=== PATIENT | female | born 1980 | race Caucasian/White ===

== ENCOUNTER 2024-01-11 09:46 | Emergency (ER) | payer OTHER, SELFPAY ==
[2024-01-11 09:50] VITALS: BP 115/79; PULSE 123; RESP 16; TEMP 36.8; O2SAT 100; BMI 31.0
[2024-01-11 09:57] VITALS: BP 116/79; PULSE 106; RESP 12; O2SAT 99
[2024-01-11 10:14] LABS: Basophils % 0.3 %; Eosinophils # 0.1 10^3/uL (0.0-0.8); Eosinophils % 0.5 %; Hematocrit 41.2 % (36-47); Lymphocytes # 1.5 10^3/uL (0.8-4.8); Lymphocytes % 14.6 %; Mean Corpuscular HGB Conc 33.5 g/dL (30-55); Mean Corpuscular Hemoglobin 28.9 pg (27-33); Mean Corpuscular Volume 86.4 fl (85-98); Mean Platelet Volume 12.7 fL (7.4-10.4); Monocytes # 0.6 10^3/uL (0.2-0.9); Monocytes % 6.2 %; Neutrophils # 7.84 10^3/uL (1.8-7.7); Neutrophils % 78.2 %; Nucleated Red Blood Cells % 0 %; Platelet Count 249 10^3/cmm (157-399); Red Blood Count 4.77 10^6/uL (3.85-5.65); Red Cell Distribution Width 12.8 % (12.1-15.1); White Blood Count 10.02 10^3/uL (3.29-11.43)
--- NOTE | 2024-01-11 10:35 | ECG_ITS ---
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 Measurements Intervals [place] Rate: 101 P: 9 [place]: 157 QRS: 29 QRSD: 72 T: 62 QT: 328 QTc: 427 Interpretive Statements SINUS TACHYCARDIA ABNORMAL RHYTHM ECG No previous ECG available for comparison Electronically Signed On 01-11-2024 20:01:44 CDT by Lakesha Leach M.D. [id number]
[2024-01-11 10:36] LABS: Alanine Aminotransferase 11 U/L (0-33); Albumin Level 4.5 g/dL (3.5-5.2); Alkaline Phosphatase 105 U/L (35-105); Aspartate Amino Transferase 14 U/L (0-32); Blood Urea Nitrogen 10 mg/dL (6-20); Calcium 9.8 mg/dL (8.5-10.5); Carbon Dioxide 23 mmol/L (22-29); Chloride 100 mmol/L (98-107); Creatinine Clr Calc Pharmacy 99.0184; Globulin 3.6 g/dL (1.3-4.6); Glomerular Filtration Rate 68.3 mL/min (90-130); Glucose 143 mg/dL (65-115); Lipase 14 U/L (13-60); Osmolality Calculated 292 mOsm/kg (285-295); Sodium 140 mmol/L (136-145); Total Bilirubin 1.4 mg/dL (0.15-1.2); Total Protein 8.1 g/dL (6.6-8.7)
[2024-01-11] MEDS: sodium chloride 0.9% 1,000 ML 999 ML IV (10:37)
[2024-01-11] MEDS: ondansetron 2 mg/ML SDV 2 mL 4 MG IVP (10:37)
[2024-01-11 11:00] LABS: Add Urine Microscopic? YES; Bilirubin Urine 1+ (Negative); Blood Urine 3+ (Negative); Glucose Urine UA Norm (Normal); Ketones Urine 3+ (Negative); Leukocyte Esterase Urine Negative (Negative); Nitrate Urine Negative (Negative); Protein Urine 2+ (Negative); Urine Appearance Clear (CLEAR); Urine Color Amber (Yellow); Urobilinogen Urine 4 mg/dL (Negative); pH Urine 6 (5-7)
--- NOTE | 2024-01-11 11:01 | PC.PHAR ---
PTS MED LIST IS VIA HER PHONE LIST. PHONED [facility] IN [facility] FOR MED LIST TO COMPARE.
[2024-01-11 11:03] LABS: Add Urine Culture? No; Bacteria Urine TRACE /hpf; Mucus Urine 2+ /hpf; RBC Urine 0-4 /hpf (0-2); Squamous Epithelial Cell Urine 0-4 /hpf (0-5); WBC Urine 0-4 /hpf (0-5)
--- NOTE | 2024-01-11 11:43 | CT_ITS ---
WS: [id number] CT ABDOMEN AND PELVIS NONCONTRAST HISTORY: Abdominal pain TECHNIQUE: Imaging performed through the abdomen and pelvis. Coronal and sagittal reformats are submi tted. All CT scans at [facility] use at least one of these dose optimization techniques: auto mated exposure control; mA and/or kV adjustment per patient size (includes targeted exams where dose is matched to clinical indication); or iterative reconstruction. DLP: 890.44 mGy.cm COMPARISON: None available. Lower thorax: Lung bases are clear. Visualized heart is normal. No hiatal hernia. Liver: Normal size liver. No mass or bile duct dilatation. Gallbladder: Prior cholecystectomy. Pancreas: Normal size and attenuation. Normal pancreatic duct. No pancreatitis or mass. Spleen: Normal. Adrenal glands: Normal. No mass. Right kidney: Mild perinephric stranding. No obstruction. Left kidney: Mild perinephric stranding. No obstruction. Aorta: Mild atherosclerosis abdominal aorta with no aneurysm. No free fluid, intraperitoneal air or significant lymphadenopathy. GI tract: Normal stomach. No small bowel obstruction. Normal appendix. Mild distal colonic diverticul a. No acute diverticulitis. Abdominal wall: Negative. No hernia. Pelvis: Uterus is midline. Both ovaries are identified. No free fluid and no adenopathy. Negative uri nary bladder. Osseous structures: No destructive bone lesions. L4-5 osteophytic ridging and disc bulging encroachin g upon the ventral thecal sac and the RIGHT S1 nerve root. Bilateral foraminal stenosis. CT/CT abdomen pelvis wo con [id number] IMPRESSION: 1. No acute abdominal or pelvic abnormalities. 2. Mild perinephric stranding around each kidney may be chronic. No renal obst ruction. 3. Normal appendix. 4. No GI tract obstruction. 5. Mild distal colonic diverticulosis without acute diverticulitis. 6. No ascites or adenopathy. 7. Prior cholecystectomy.
--- NOTE | 2024-01-11 12:18 | ED_ITS ---
HPI - Abdominal Pain 2 General: Chief Complaint: Nausea/Vomiting/Diarrhea Stated Complaint: n/v Time Seen by Provider: 01/11/24 09:52 Source: patient Mode of arrival: ambulatory History of Present Illness: 43 yo female present to the ER with comp laints of several days of epigastric RUQ abd pain with persistent N/V. Pt denies hematemesis, coffee ground emesis, hematochezia or melena Pt has previously had a cholecystectomy. No fever sweats chills. She has not noted anything that exacerbates or relieves symptoms. MD elicited complaint: abdominal pain Associated Symptoms: Reports nausea and vomiting; Denies chills, dysuria and fever(s) Review of Systems 2 Const: Denies: fever(s) or chills Card: Denies: chest pain Resp: Denies: dyspnea GI: Reports: abdominal pain, nausea and vomiting : Denies: dysuria, urinary frequency or urinary urgency Musc: Denies: neck pain or back pain Skin/Breast: Denies: rash Physical Exam 2 Const: COMMON NORMALS: no acute distress GENERAL APPEARANCE: cooperative and comfortable ORIENTATION/CONSCIOUSNESS: Yes awake, Yes oriented to person, Yes oriented to place and Yes oriented to time HENMT: COMMON NORMALS: normocephalic, atraumatic and hearing grossly normal bilaterally HEAD & SCALP: normocephalic and atraumatic Resp: COMMON NORMALS: normal respiratory effort, No retractions, No use of accessory muscles and clear to auscultation bilaterally AUSCULTATION: clear to auscultation bilaterally Cardio: COMMON NORMALS: regular rate, regular rhythm and No murmurs present (Cardio) RATE: regular rate RHYTHM: regular rhythm GI: COMMON NORMALS: Soft to palpation and No hepatosplenomegaly present A USCULTATION: Yes normoactive bowel sounds PALPATION: Yes Soft to palpation, No Tenderness to palpation present (GI), No Guarding due to palpation present (GI) and Yes No hepatosplenomegaly present Extremity: COMMON NORMALS: normal to inspection, capillary refill normal, no clubbing, cyanosis or edema, no calf tenderness and no pedal edema Neuro: SENSORIUM/ORIENTATION: Yes oriented to person, Yes oriented to place and Yes oriented to time Skin: COMMON NORMALS: no rashes or lesions noted GENERAL SKIN EXAM: no rashes or lesions noted Course 2 Vital Signs: Vital signs: Vital Signs Temperature 98.2 F 01/11/24 09:50 Pulse Rate 100 01/11/24 12:49 Respiratory Rate 12 01/11/24 09:57 Blood Pressure 115/79 01/11/24 12:49 Pulse Oximetry 100 01/11/24 12:49 Oxygen Delivery Me thod Room Air 01/11/24 12:49 MDM - Abdominal Pain Medical Decision Making Patient has not been using her blood sugar medications anion gap is very small blood sugar well-controlled electrolytes normal CO2 normal I do not think there is any evidence of DKA at this point. I think her nausea and vomiting are due to her diabetic gastroparesis. Will try to get her set up with a primary care doctor through case management refilled her Reglan to use as needed clear liquid diet and advance as tolerated monitor blood sugars closely Medical Records I reviewed the patient's medical records. Lab Data I reviewed the patient's lab results. 01/11/24 10:08 01/11/24 10:08 Labs/Radiology: Radiology Impressions Abdomen/Pelvis CT 01/11/24 11:43 IMPRESSION: 1. No acute abdominal or pelvic abnormalities. 2. Mild perinephric stranding around each kidney may be chronic. No renal obstruction. 3. Normal appendix. 4. No GI tract obstruction. 5. Mild distal colonic diverticulosis without acute diverticulitis. 6. No ascites or adenopathy. 7. Prior cholecystectomy. Laboratory Results WBC 10.02 10^3/uL (3.29-11.43) 01/11/24 10:08 RBC 4.77 10^6/uL (3.85-5.65) 01/11/24 10:08 Hgb 13.80 g/dL (11.27-16.99) 01/11/24 10:08 Hct 41.2 % (36-47) 01/11/24 10:08 MCV 86.4 fl (85-98) 01/11/24 10:08 MCH 28.9 pg (27-33) 01/11/24 10:08 MCHC 33.5 g/dL (30-55) 01/11/24 10:08 RDW 12.8 % (12.1-15.1) 01/11/24 10:08 Plt Count 249 10^3/cmm (157-399) 01/11/24 10:08 MPV 12.7 fL (7.4-10.4) H 01/11/24 10:08 Neut % (Auto) 78.2 % 01/11/24 10:08 Lymph % (Auto) 14.6 % 01/11/24 10:08 [place] % (Auto) 6.2 % 01/11/24 10:08 Eos % (Auto) 0.5 % 01/11/24 10:08 Baso % (Auto) 0.3 % 01/11/24 10:08 Neut # (Auto) 7.84 10^3/uL (1.8-7.7) H 01/11/24 10:08 Lymph # (Auto) 1.5 10^3/uL (0.8-4.8) 01/11/24 10:08 [place] # (Auto) 0.6 10^3/uL (0.2-0.9) 01/11/24 10:08 Eos # (Auto) 0.1 10^3/uL (0.0-0.8) 01/11/24 10:08 Baso # (Auto) 0.0 10^3/uL (0.0-0.1) 01/11/24 10:08 Nucleated RBC % (auto) 0 % 01/11/24 10:08 Nucleated RBCs # 0.0 /100WBC 01/11/24 10:08 Sodium 140 mmol/L (136-145) 01/11/24 10:08 Potassium 4.0 mmol/L (3.5-5.1) 01/11/24 10:08 Chloride 100 mmol/L (98-107) 01/11/24 10:08 Carbon Dioxide 23 mmol/L (22-29) 01/11/24 10:08 Anion Gap 21.0 (5-19) H 01/11/24 10:08 BUN 10 mg/dL (6-20) 01/11/24 10:08 Creatinine 0.9 mg/dL (0.5-0.9) 01/11/24 10:08 GFR Calculation 68.3 mL/min (90-130) L 01/11/24 10:08 Glucose 143 mg/dL (65-115) H 01/11/24 10:08 POC Glucose 114 mg/dL (70-110) H 01/11/24 13:36 Calculated Osmolality 292 mOsm/kg (285-295) 01/11/24 10:08 Calcium 9.8 mg/dL (8.5-10.5) 01/11/24 10:08 Total Bilirubin 1.4 mg/dL (0.15-1.2) H 01/11/24 10:08 AST 14 U/L (0-32) 01/11/24 10:08 ALT 11 U/L (0-33) 01/11/24 10:08 Alkaline Phosphatase 105 U/L (35-105) 01/11/24 10:08 Total Protein 8.1 g/dL (6.6-8.7) 01/11/24 10:08 Albumin 4.5 g/dL (3.5-5.2) 01/11/24 10:08 Globulin 3.6 g/dL (1.3-4.6) 01/11/24 10:08 Lipase 14 U/L (13-60) 01/11/24 10:08 HCG, Qual Negative (Negative) 01/11/24 10:08 Urine Color [place] (Yellow) 01/11/24 10:08 Urine Appearance Clear (CLEAR) 01/11/24 10:08 Urine pH 6 (5-7) 01/11/24 10:08 Ur Specific [place] 1.030 (1.005-1.030) 01/11/24 10:08 Urine Protein 2+ (Negative) H 01/11/24 10:08 Urine Glucose (UA) Norm (Normal) 01/11/24 10:08 Urine Ketones 3+ (Negative) H 01/11/24 10:08 Urine Blood 3+ (Negative) H 01/11/24 10:08 Urine Nitrate Negative (Negative) 01/11/24 10:08 Urine Bilirubin 1+ (Negative) H 01/11/24 10:08 Urine Urobilinogen 4 mg/dL (Negative) H 01/11/24 10:08 Ur Leukocyte Esterase Negative (Negative) 01/11/24 10:08 Urine RBC 0-4 /hpf (0-2) H 01/11/24 10:08 Urine WBC 0-4 /hpf (0-5) H 01/11/24 10:08 Ur Squamous Epith Cells 0-4 /hpf (0-5) H 01/11/24 10:08 Amorphous Sediment Not Reportable 01/11/24 10:08 Urine Bacteria Trace /hpf (NONE) 01/11/24 10:08 Hyaline Casts 5-10 /lpf H 01/11/24 10:08 Urine Mucus 2+ /hpf 01/11/24 10:08 All radiology interpretation(s) finalized by discharge Discharge Plan Discharge Patient Disposition: Home Clinical Impression: Nausea and vomiting, Hx of diabetes mellitus, Diabetic gastroparesis Condition: Stable Prescriptions: New Reglan 10 mg tablet 10 mg PO Q6H PRN (Reason: nausea and vomiting) Qty: 20 0RF No Action losartan 50 mg Tablet 50 mg PO DAILY gabapentin 600 mg Tablet 600 mg PO TID famotidine 40 mg Tablet 40 mg PO BID rizatriptan 10 mg Tablet 10 mg PO Q2H PRN (Reason: Headache) Rx Instructions: do not exceed 3 doses per 24 hrs Aspir-81 81 mg Tablet,Delayed Release (Dr/Ec) 81 mg PO DAILY dicyclomine 20 mg Tablet 20 mg PO TID PRN (Reason: Spasms) pantoprazole 40 mg Tablet,Delayed Release (Dr/Ec) 40 mg PO BID hydroxyzine HCl 25 mg Tablet 25 mg PO TID PRN (Reason: Anxiety) pravastatin 20 mg Tablet 20 mg PO QPM Vitamin D2 1,250 mcg (50,000 unit) Capsule 1,250 mcg PO DAILY Zofran ODT 4 mg Tablet,Disintegrating 4 mg PO Q8H PRN (Reason: Nausea) metformin 500 mg Tablet Extended Release 24 Hr 1,000 mg PO BID lamotrigine 100 mg Tablet 200 mg PO BID metoclopramide HCl 10 mg Tablet 10 mg PO QID Humalog KwikPen Insulin 100 unit/mL Insulin Pen See Rx Instructions .ROUTE .COMPLEX Rx Instructions: TAKE 50 UNITS IN THE MORNING, 28 UNITS IN AFTERNOON, 36 UNITS AT DINNER, 5 UNITS FOR EACH SNACK PLUS SLIDING SCALE. lactulose 10 gram/15 mL Solution 15 ml PO DAILY Lantus Solostar U-100 Insulin 100 unit/mL (3 mL) Insulin Pen See Rx Instructions .ROUTE .COMPLEX Rx Instructions: TAKE 65 UNITS BY SUBCUTANEOUS INJECTION IN THE MORNING AND 75 UNITS AT BEDTIME Jardiance 25 mg Tablet 25 mg PO DAILY Trulicity 1.5 mg/0.5 mL Pen Injector 1.5 mg SUBCUT Q7D magnesium oxide 400 mg magnesium Tablet 400 mg PO BID Motegrity 2 mg Tablet 2 mg PO DAILY Aimovig Autoinjector 140 mg/mL Auto-Injector 140 mg SUBCUT Q30D ferrous sulfate 137 mg (45 mg iron) Tablet Extended Release 45 mg PO BID Discharge Orders: Discharge ED (Routine); Ordered 01/11/24 Ordered By: Maurisio Lott Patient Instructions: Opioid Safety, Pain Management Activity Restrictions/Additional Instructions: Thank you for choosing [facility] for your healthcare needs today. Please realize this is an emergency room and that we are providing you with a medical screening exam and this may not be complete and all inclusive of all the testing and or work up that you may need to determine your ailment or severity of your illness. It is very important that you follow up as instructed or that you return to the Emergency Department should you have concerns or if your condition changes or worsens in any way. Recommend you resume your regular medications particular your diabetic medications. He gave a prescription for more of the Reglan you can use 1 every 6 hours as needed. Case management will assist you in establishing with a primary care provider. Coding Level of Care Code ED Automatic Door Mechanic for Ade Moreno
[2024-01-11 12:20] LABS: HCG, Serum Qual Negative (Negative)
[2024-01-11 12:49] VITALS: BP 115/79; PULSE 100; O2SAT 100
[2024-01-11 13:40] LABS: Glucose Point of Care 114 mg/dL (70-110)
--- NOTE | 2024-01-23 10:14 | DCPLANNER ---
joaquin grijalva office for er f/u
== END 2024-01-11 13:48 | disposition home or self-care (01) ==
PROVIDERS: Emergency Provider Family Medicine
DX: E11.43 Type 2 diabetes mellitus with diabetic autonomic (poly)neuropathy (principal); K31.84 Gastroparesis; Z79.82 Long term (current) use of aspirin; Z79.84 Long term (current) use of oral hypoglycemic drugs; Z79.4 Long term (current) use of insulin
CPT/HCPCS: 36416; 74176; 80053; 81001; 82962; 83690; 84703; 85025; 93005; 96374; 99285; J2405; J7030

== ENCOUNTER 2024-02-28 16:03 | Outpatient (CLI) | payer OTHER, SELFPAY ==
[2024-02-28 16:28] LABS: Basophils % 0.6 %; Eosinophils # 0.1 10^3/uL (0.0-0.8); Eosinophils % 1.4 %; Hematocrit 35.4 % (36-47); Lymphocytes # 1.5 10^3/uL (0.8-4.8); Lymphocytes % 23.1 %; Mean Corpuscular HGB Conc 33.1 g/dL (30-55); Mean Corpuscular Hemoglobin 29.5 pg (27-33); Mean Corpuscular Volume 89.4 fl (85-98); Mean Platelet Volume 12.7 fL (7.4-10.4); Monocytes # 0.5 10^3/uL (0.2-0.9); Neutrophils # 4.32 10^3/uL (1.8-7.7); Neutrophils % 67.4 %; Nucleated Red Blood Cells % 0 %; Platelet Count 155 10^3/cmm (157-399); Red Blood Count 3.96 10^6/uL (3.85-5.65); Red Cell Distribution Width 13.6 % (12.1-15.1); White Blood Count 6.41 10^3/uL (3.29-11.43)
[2024-02-28 16:47] LABS: Estmated Average Glucose 157; Hemoglobin A1C 7.1 % (4.0-6.0)
[2024-02-28 17:00] LABS: Alanine Aminotransferase 9 U/L (0-33); Albumin Level 4.1 g/dL (3.5-5.2); Alkaline Phosphatase 77 U/L (35-105); Anion Gap 12.6 (5-19); Aspartate Amino Transferase 11 U/L (0-32); Blood Urea Nitrogen 7 mg/dL (6-20); Calcium 8.8 mg/dL (8.5-10.5); Carbon Dioxide 26 mmol/L (22-29); Chloride 105 mmol/L (98-107); Chol HDL Ratio 2.74 mg/dL (0.0-4.40); Cholesterol 137 mg/dL (0-200); Globulin 2.8 g/dL (1.3-4.6); Glomerular Filtration Rate 109.1 mL/min (90-130); Glucose 223 mg/dL (65-115); HDL Cholesterol 50 mg/dL (60-100); LDL Cholesterol Calculated 74 mg/dL (50-129); LDL HDL Ratio 1.48 RATIO (0.00-3.22); Osmolality Calculated 293 mOsm/kg (285-295); Potassium 4.6 mmol/L (3.5-5.1); Sodium 139 mmol/L (136-145); Thyroid Stimulating Hormone 1.55 uIU/mL (0.27-4.20); Total Bilirubin 0.4 mg/dL (0.15-1.2); Total Protein 6.9 g/dL (6.6-8.7); Triglycerides 67 mg/dL (0-150)
== END 2024-02-28 16:04 | disposition home or self-care (01) ==
LOC: LAB 16:05
PROVIDERS: PCP Family Medicine Adult Medicine; Visit Provider Family Medicine Adult Medicine
DX: I10 Essential (primary) hypertension (principal); E11.69 Type 2 diabetes mellitus with other specified complication; E78.5 Hyperlipidemia, unspecified; E11.9 Type 2 diabetes mellitus without complications
CPT/HCPCS: 36415; 80053; 80061; 83036; 84443; 85025

== ENCOUNTER 2024-04-29 00:03 | Emergency (ER) | payer OTHER, SELFPAY ==
[2024-04-29 00:08] VITALS: BP 120/81; PULSE 127; RESP 20; TEMP 37.4; O2SAT 97; BMI 30.2
--- NOTE | 2024-04-29 00:56 | XRR_ITS ---
PROCEDURE INFORMATION: Exam: XR Chest Exam date and time: 04/29/2024 12:57 AM Age: 43 years old Clinical indication: Cough and shortness of breath; Patient HX: Cough with SOB; Additional info: Cough cp SOB TECHNIQUE: Imaging protocol: Radiologic exam of the chest. Views: 1 view. COMPARISON: CT abdomen pelvis wo con [id number] 01/11/2024 12:34 PM FINDINGS: Lungs: Unremarkable. No consolidation. Pleural spaces: Unremarkable. No pleural effusion. No pneumothorax. Heart/Mediastinum: Unremarkable. No cardiomegaly. Bones/joints: Unremarkable. XR/XR chest 1V portable [id number] IMPRESSION: No acute findings.
--- NOTE | 2024-04-29 00:56 | ECG_ITS ---
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 Measurements Intervals [place] Rate: 102 P: 28 [place]: 157 QRS: 27 QRSD: 81 T: 50 QT: 314 QTc: 410 Interpretive Statements SINUS TACHYCARDIA ABNORMAL RHYTHM ECG Compared to ECG 01/11/2024 10:35:20 No significant changes Electronically Signed On 04-29-2024 20:33:18 CDT by Lakesha Leach M.D. [id number]
[2024-04-29 01:21] LABS: SARS Covid-2 Antigen Negative (Negative)
[2024-04-29 01:40] VITALS: RESP 16; O2SAT 96
[2024-04-29] MEDS: oxyCODONE-APAP 5-325 mg Tablet 2 TAB PO (01:40)
[2024-04-29] MEDS: metoclopramide 10 mg Tablet PO (01:41)
[2024-04-29] MEDS: ketorolac 60 mg/2 mL INJ IM (01:41)
[2024-04-29 01:42] LABS: Influenza A by IFA Negative (Negative); Influenza B by IFA Negative (Negative)
[2024-04-29 01:44] VITALS: BP 129/72; PULSE 105; RESP 18; O2SAT 96
--- NOTE | 2024-04-29 01:48 | ED_ITS ---
HPI - URI/Sore Throat General: Chief Complaint: Upper Respiratory Infection Stated Complaint: fever/bodyache Time Seen by Provider: 04/29/24 00:13 History of Present Illness: 43-year-old female who has been sick for 48 hours. She complains of fever as high as 101.8. She has had some pleuritic type chest pain, mostly with cough. No sputum production. Some sinus drainage and congestion and headache. No vomiting or diarrhea. Her is sick with the same symptoms. He has been sick for more like 5 days. Related Data Home Medications Medication Instructions Recorded Confirmed aspirin 81 mg tablet,delayed 81 mg PO DAILY 01/11/24 04/10/24 release dicyclomine 20 mg tablet 20 mg PO TID PRN Spasms 01/11/24 04/10/24 dulaglutide 1.5 mg/0.5 mL 1.5 mg SUBCUT Q7D 01/11/24 04/10/24 subcutaneous pen injector (Trulicity) empagliflozin 25 mg tablet 25 mg PO DAILY 01/11/24 04/10/24 (Jardiance) erenumab-aooe 140 mg/mL 140 mg SUBCUT Q30D 01/11/24 04/10/24 subcutaneous auto-injector (Aim[employer]ig Autoinjector) ergocalciferol (vitamin D2) 1,250 1,250 mcg PO DAILY 01/11/24 04/10/24 mcg (50,000 unit) capsule (Vitamin D2) famotidine 40 mg tablet 40 mg PO BID 01/11/24 04/10/24 ferrous sulfate 137 mg (45 mg 45 mg PO BID 01/11/24 04/10/24 iron) tablet,extended release hydroxyzine HCl 25 mg tablet 25 mg PO TID PRN Anxiety 01/11/24 04/10/24 insulin glargine 100 unit/mL (3 See Rx Instructions .Route .COMPLEX 01/11/24 04/10/24 mL) subcutaneous pen (Lantus Solostar U-100 Insulin) insulin lispro 100 unit/mL See Rx Instructions .Route .COMPLEX 01/11/24 04/10/24 subcutaneous pen (Humalog KwikPen (U-100) Insulin) lactulose 10 gram/15 mL oral 15 ml PO DAILY 01/11/24 04/10/24 solution lamotrigine 100 mg tablet 200 mg PO BID 01/11/24 04/10/24 losartan 50 mg tablet 50 mg PO DAILY 01/11/24 04/10/24 magnesium oxide 400 mg PO BID 01/11/24 04/10/24 metformin 500 mg tablet,extended 1,000 mg PO BID 01/11/24 04/10/24 release 24 hr metoclopramide HCl 10 mg tablet 10 mg PO QID 01/11/24 04/10/24 ondansetron 4 mg disintegrating 4 mg PO Q8H PRN Nausea 01/11/24 04/10/24 tablet pravastatin 20 mg tablet 20 mg PO QPM 01/11/24 04/10/24 prucalopride 2 mg tablet 2 mg PO DAILY 01/11/24 04/10/24 (Motegrity) rizatriptan 10 mg tablet 10 mg PO Q2H PRN Headache 01/11/24 04/10/24 Previous Rx's Medication Instructions Recorded escitalopram oxalate 10 mg tablet 10 mg PO DAILY anxiety #30 tabs 02/07/24 (Lexapro) pantoprazole 40 mg tablet,delayed 40 mg PO BID PRN acid reflux #60 04/10/24 release tabs pregabalin 50 mg capsule 50 mg PO TID neuropathy/migraines 04/10/24 #90 caps hydrocodone 5 mg-acetaminophen 325 1 tab PO Q8H PRN pain #7 tabs 04/29/24 mg tablet nirmatrelvir 300 mg (150 mg See Rx Instructions PO .COMPLEX 04/29/24 x2)-ritonavir 100 mg tablet,dose #30 ea pack (Paxlovid) Allergies Allergy/AdvReac Type Severity Reaction Status Date / Time lisinopril Allergy ADR-Cough Verified 04/29/24 00:11 [facility] ED PFS: Medical History History of abnormal mammogram 02/07/2024 patient reported abnormal mammogram, time for 6-month follow-up Chronic GERD Diabetic retinopathy associated with controlled type 2 diabetes mellitus Anxiety and depression Dyslipidemia associated with type 2 diabetes mellitus Migraines DM II (diabetes mellitus, type II), controlled Gastroparesis Degenerative disc disease History of PCOS HTN (hypertension) with goal to be determined Diabetic neuropathy IBS (irritable bowel syndrome) Broken nose Fatty liver Surgical History History of cholecystectomy Family History Father Diabetes Mother Diabetes Fatty liver Social History Smoking and tobacco/nicotine status: former use of tobacco/nicotine Quit status (tobacco/nicotine): has quit using Alcohol intake: former Substance/Drug Use: never Physical Exam Const: COMMON NORMALS: no acute distress GENERAL APPEARANCE: cooperative; not ill appearing and not frail appearing HENMT: COMMON NORMALS: normocephalic, atraumatic and Normal external nose present HEAD & SCALP: normocephalic and atraumatic FACE & SINUS: normal facial exam and face symmetric NOSE: Normal external nose present Eye: COMMON NORMALS: Equal, round and reactive pupils present and EOMs intact bilaterally PUPIL: Yes Equal, round and reactive pupils present Neck/C-Spine: GENERAL: Yes trachea midline Chest: CHEST: Yes Symmetrical chest wall rise Resp: COMMON NORMALS: normal respiratory effort, No retractions, No use of accessory muscles and clear to auscultation bilaterally AUSCULTATION: clear to auscultation bilaterally Cardio: COMMON NORMALS: regular rate and regular rhythm RATE: regular rate RHYTHM: regular rhythm GI: COMMON NORMALS: Normal to inspection, nondistended, normoactive bowel sounds present Extremity: COMMON NORMALS: no pedal edema Neuro: GABRIELA COMA SCALE: document GCS findings Gabriela coma scale eye opening: Spontaneous Gabriela coma scale verbal response: Orientated [place] coma scale motor response: Obey commands Gabriela coma scale total score: 15 SENSORY EXAM: Yes extremities (intact) Psych: COMMON NORMALS: speech normal SPEECH: Yes normal speech Skin: COMMON NORMALS: no rashes or lesions noted GENERAL SKIN EXAM: no rashes or lesions noted Course Vital Signs: Vital signs: Vital Signs Temperature 99.4 F 04/29/24 00:08 Pulse Rate 114 H 04/29/24 02:09 Respiratory Rate 16 04/29/24 02:09 Blood Pressure 129/72 04/29/24 01:44 Pulse Oximetry 96 04/29/24 02:09 Oxygen Delivery Me thod Room Air 04/29/24 01:44 MDM - URI/Sore Throat Medical Decision Making tested positive for COVID-19 in the ER. She is antigen testing negative so far. Based on symptoms and exposure, she does have COVID. Chest x-ray is negative. Flu A and B are negative as well. EKG is not remarkable. As she is only 48 hours into her illness, she will be prescribed Paxlovid. Lab Data Radiology Impressions Chest X-Ray 04/29/24 00:56 IMPRESSION: No acute findings. Laboratory Results Influenza Type A Ag Negative (Negative) 04/29/24 01:10 Influenza Type B Ag Negative (Negative) 04/29/24 01:10 SARS-CoV-2 Ag (Rapid) Negative (Negative) 04/29/24 00:57 All radiology interpretation(s) finalized by discharge Discharge Plan Discharge Patient Disposition: Home Clinical Impression: COVID-19 Condition: Stable Prescriptions: New Paxlovid 300 mg (150 mg x 2)-100 mg tablets,dose pack See Rx Instructions .ROUTE .COMPLEX Qty: 30 0RF Rx Instructions: take TWO 150 mg tablets of nirmatrelvir with ONE 100 mg tablet of ritonavir twice daily for 5 days hydrocodone-acetaminophen 5-325 mg tablet 1 tab PO Q8H PRN (Reason: pain) Qty: 7 0RF No Action escitalopram oxalate [Lexapro] 10 mg tablet 10 mg PO DAILY Qty: 30 1RF pregabalin 50 mg capsule 50 mg PO TID Qty: 90 3RF pantoprazole 40 mg tablet,delayed release (DR/EC) 40 mg PO BID PRN (Reason: acid reflux) Qty: 60 3RF losartan 50 mg Tablet 50 mg PO DAILY famotidine 40 mg Tablet 40 mg PO BID rizatriptan 10 mg Tablet 10 mg PO Q2H PRN (Reason: Headache) Rx Instructions: do not exceed 3 doses per 24 hrs Aspir-81 81 mg Tablet,Delayed Release (Dr/Ec) 81 mg PO DAILY dicyclomine 20 mg Tablet 20 mg PO TID PRN (Reason: Spasms) hydroxyzine HCl 25 mg Tablet 25 mg PO TID PRN (Reason: Anxiety) pravastatin 20 mg Tablet 20 mg PO QPM Vitamin D2 1,250 mcg (50,000 unit) Capsule 1,250 mcg PO DAILY Zofran ODT 4 mg Tablet,Disintegrating 4 mg PO Q8H PRN (Reason: Nausea) metformin 500 mg Tablet Extended Release 24 Hr 1,000 mg PO BID lamotrigine 100 mg Tablet 200 mg PO BID metoclopramide HCl 10 mg Tablet 10 mg PO QID Humalog KwikPen Insulin 100 unit/mL Insulin Pen See Rx Instructions .ROUTE .COMPLEX Rx Instructions: TAKE 50 UNITS IN THE MORNING, 28 UNITS IN AFTERNOON, 36 UNITS AT DINNER, 5 UNITS FOR EACH SNACK PLUS SLIDING SCALE. lactulose 10 gram/15 mL Solution 15 ml PO DAILY Lantus Solostar U-100 Insulin 100 unit/mL (3 mL) Insulin Pen See Rx Instructions .ROUTE .COMPLEX Rx Instructions: TAKE 65 UNITS BY SUBCUTANEOUS INJECTION IN THE MORNING AND 75 UNITS AT BEDTIME Jardiance 25 mg Tablet 25 mg PO DAILY Trulicity 1.5 mg/0.5 mL Pen Injector 1.5 mg SUBCUT Q7D magnesium oxide 400 mg magnesium Tablet 400 mg PO BID Motegrity 2 mg Tablet 2 mg PO DAILY Aimovig Autoinjector 140 mg/mL Auto-Injector 140 mg SUBCUT Q30D ferrous sulfate 137 mg (45 mg iron) Tablet Extended Release 45 mg PO BID Discharge Orders: Discharge ED (Routine); Ordered 04/29/24 Ordered By: Peter Blevins Referrals: Fredi Mitchell MD [Primary Care Provider] - 4-7 days Patient Instructions: COVID-19 (Coronavirus Disease 2019) (ED), Opioid Safety, Pain Management Activity Restrictions/Additional Instructions: Plenty of clear liquids for the next 48 hours. Medication as directed. Control temperature. Return for worsening symptoms, especially shortness of breath, despite treatment. Stand Alone Forms: Work/School Release Coding Level of Care Code ED Crime Scene Specialist for Ade Moreno
[2024-04-29 02:09] VITALS: PULSE 114; RESP 16; O2SAT 96
== END 2024-04-29 02:10 | disposition home or self-care (01) ==
PROVIDERS: Emergency Provider Emergency Medicine; PCP Family Medicine Adult Medicine
DX: U07.1 COVID-19 (principal); Z79.82 Long term (current) use of aspirin; Z79.84 Long term (current) use of oral hypoglycemic drugs; Z79.4 Long term (current) use of insulin; Z79.85 Long-term (current) use of injectable non-insulin antidiabetic drugs; Z87.891 Personal history of nicotine dependence; E78.5 Hyperlipidemia, unspecified; I10 Essential (primary) hypertension; E11.40 Type 2 diabetes mellitus with diabetic neuropathy, unspecified
CPT/HCPCS: 71045; 87426; 87804; 93005; 96372; 99285; J1885; J8597

== ENCOUNTER 2024-07-16 14:49 | Outpatient (CLI) | payer OTHER, SELFPAY ==
--- NOTE | 2024-07-16 | MM_ITS ---
WS: [id number] BILATERAL 3D TOMOSYNTHESIS DIGITAL DIAGNOSTIC MAMMOGRAPHY WITH CAD CLINICAL INFORMATION: 6 MONTH FU ABNORMAL MAMMOGRAM HISTORY: 6-month follow-up COMPARISON: 09/23/2022 from outside facility. Additional ultrasound 11/11/2022 and mammogram 11/11/2022 an d 09/23/2022 TECHNIQUE: Bilateral CC, MLO, and ML views. FINDINGS: Scattered fibroglandular densities bilaterally. Persistent asymmetric density upper outer LEFT breast . This is persistent on the spot compression views today with slightly irregular margins. This is ind eterminant and recommend further evaluation with LEFT breast ultrasound. Asymmetry measures approxima tely 9 mm. This is in the outer quadrant LEFT breast at or just below the level of the nipple on the straight lateral view RIGHT breast is unremarkable and unchanged. MM/MM diag BI tomosynthesis [id number] IMPRESSION: DENSITY: There are scattered areas of fibroglandular density. BI-RADS: 0 - Incomplete: Need additional imaging evaluation. FOLLOW UP: Need Additional Imaging Recommend ultrasound LEFT breast in further evaluation.
== END 2024-07-16 14:50 | disposition home or self-care (01) ==
LOC: RAD 14:49
PROVIDERS: PCP Family Medicine Adult Medicine; Visit Provider Family Medicine Adult Medicine
DX: R92.8 Other abnormal and inconclusive findings on diagnostic imaging of breast (principal); R92.323 Mammographic fibroglandular density, bilateral breasts; N64.89 Other specified disorders of breast; N63.21 Unspecified lump in the left breast, upper outer quadrant
CPT/HCPCS: 77062; G0279

== ENCOUNTER 2024-09-12 09:39 | Outpatient (CLI) | payer OTHER, SELFPAY ==
--- NOTE | 2024-09-12 09:46 | XR_ITS ---
WS: [id number] Left foot, 3 views, 09/12/2024 Clinical Data: E11.621 - Type 2 diabetes mellitus with foot ulcer Comparison: None. Findings: No fractures or dislocations are seen. No bone destruction or erosion is noted. The joint spaces and soft tissues are normal. XR/XR foot LT min 3V* [id number] Impression: Negative left foot.
== END 2024-09-12 09:40 | disposition home or self-care (01) ==
LOC: RAD 09:42
PROVIDERS: PCP Family Medicine; Visit Provider Thoracic Surgery (Cardiothoracic Vascular Surgery)
DX: E11.621 Type 2 diabetes mellitus with foot ulcer (principal); L97.509 Non-pressure chronic ulcer of other part of unspecified foot with unspecified severity
CPT/HCPCS: 73630

== ENCOUNTER 2024-09-19 09:54 | Inpatient (IN) | payer OTHER, SELFPAY ==
[2024-09-19] VITALS (65 sets, daily range): BP systolic 102–157; BP diastolic 67–115; PULSE 84–141; RESP 12–26; TEMP 37.6–37.8; O2SAT 95–100; BMI 29.5
--- NOTE | 2024-09-19 10:17 | ED_ITS ---
HPI - General Adult 2 General: Chief complaint: General Medical Stated complaint: blood sugar high Time Seen by Provider: 09/19/24 10:11 History of Present Illness: 43-year-old female presents emergency ro om complaining of redness swelling in her foot. She has had a diabetic ulcer on the plantar aspect of the left foot with a large tissue defect she has been following with wound care. Over the last 3 days it has began to have redness increased swelling and tenderness. Her blood sugars have been poorly controlled she has had some nausea and vomiting with it as well. Subjective low-grade fever. Associated symptoms: Deny chest pain, dyspnea or rash Related Data Home Medications Medication Instructions Recorded Confirmed aspirin 81 mg tablet,delayed 81 mg PO DAILY 01/11/24 09/19/24 release dicyclomine 20 mg tablet 20 mg PO TID PRN Spasms 01/11/24 09/19/24 dulaglutide 1.5 mg/0.5 mL 1.5 mg SUBCUT Q7D 01/11/24 09/19/24 subcutaneous pen injector (Trulicity) empagliflozin 25 mg tablet 25 mg PO DAILY 01/11/24 09/19/24 (Jardiance) erenumab-aooe 140 mg/mL 140 mg SUBCUT Q30D 01/11/24 09/19/24 subcutaneous auto-injector (Aimovig Autoinjector) ergocalciferol (vitamin D2) 1,250 1,250 mcg PO DAILY 01/11/24 09/19/24 mcg (50,000 unit) capsule (Vitamin D2) famotidine 40 mg tablet 40 mg PO BID 01/11/24 09/19/24 ferrous sulfate 137 mg (45 mg 45 mg PO BID 01/11/24 09/19/24 iron) tablet,extended release hydroxyzine HCl 25 mg tablet 25 mg PO TID PRN Anxiety 01/11/24 09/19/24 insulin glargine 100 unit/mL (3 See Rx Instructions .Route .COMPLEX 01/11/24 09/19/24 mL) subcutaneous pen (Lantus Solostar U-100 Insulin) insulin lispro 100 unit/mL See Rx Instructions .Route .COMPLEX 01/11/24 09/19/24 subcutaneous pen (Humalog KwikPen (U-100) Insulin) lactulose 10 gram/15 mL oral 15 ml PO DAILY 01/11/24 09/19/24 solution lamotrigine 100 mg tablet 200 mg PO BID 01/11/24 09/19/24 losartan 50 mg tablet 50 mg PO DAILY 01/11/24 09/19/24 magnesium oxide 400 mg PO BID 01/11/24 09/19/24 metformin 500 mg tablet,extended 1,000 mg PO BID 01/11/24 09/19/24 release 24 hr ondansetron 4 mg disintegrating 4 mg PO Q8H PRN Nausea 01/11/24 09/19/24 tablet pravastatin 20 mg tablet 20 mg PO QPM 01/11/24 09/19/24 prucalopride 2 mg tablet 2 mg PO DAILY 01/11/24 09/19/24 (Motegrity) rizatriptan 10 mg tablet 10 mg PO Q2H PRN Headache 01/11/24 09/19/24 azithromycin 250 mg tablet See Rx Instructions .Route .COMPLEX 09/19/24 09/19/24 sulfamethoxazole 800 1 tab PO [id number] 09/19/24 09/19/24 mg-trimethoprim 160 mg tablet Previous Rx's Medication Instructions Recorded escitalopram oxalate 10 mg tablet 10 mg PO DAILY anxiety #30 tabs 02/07/24 (Lexapro) pregabalin 50 mg capsule 50 mg PO TID neuropathy/migraines 04/10/24 #90 caps hydrocodone 5 mg-acetaminophen 325 1 tab PO Q8H PRN pain #7 tabs 04/29/24 mg tablet metoclopramide HCl 10 mg tablet 10 mg PO QID #120 tabs 06/22/24 blood-glucose meter,continuous #1 ea 07/17/24 (FreeStyle Solo 3 [place]) blood-glucose sensor (FreeStyle #3 ea 07/17/24 Solo 3 Sensor device) pantoprazole 40 mg tablet,delayed 40 mg PO BID PRN acid reflux #60 08/20/24 release tabs linezolid 600 mg tablet 600 mg PO BID #14 tabs 09/19/24 metronidazole 500 mg tablet 500 mg PO Q8H #21 tabs 09/19/24 Allergies Allergy/AdvReac Type Severity Reaction Status Date / Time lisinopril Allergy ADR-Cough Verified 09/19/24 10:05 Review of Systems 2 Const: Denies: fever(s) or chills Card: Denies: chest pain Resp: Denies: dyspnea GI: Denies: abdominal pain : Denies: dysuria, urinary frequency or urinary urgency Musc: Reports: extremity pain and extremity swelling; Denies: neck pain or back pain Skin/Breast: Denies: rash PFSH ED 2 PFSH: Medical History History of abnormal mammogram 02/07/2024 patient reported abnormal mammogram, time for 6-month follow-up Chronic GERD Diabetic retinopathy associated with controlled type 2 diabetes mellitus Anxiety and depression Dyslipidemia associated with type 2 diabetes mellitus Migraines DM II (diabetes mellitus, type II), controlled Gastroparesis Degenerative disc disease History of PCOS HTN (hypertension) with goal to be determined Diabetic neuropathy IBS (irritable bowel syndrome) Broken nose Fatty liver Surgical History History of cholecystectomy Family History Father Diabetes Mother Diabetes Fatty liver Social History Smoking and tobacco/nicotine status: former use of tobacco/nicotine Quit status (tobacco/nicotine): has quit using Alcohol intake: former Substance/Drug Use: never Physical Exam 2 Const: GENERAL APPEARANCE: cooperative ORIENTATION/CONSCIOUSNESS: Yes awake, Yes oriented to person, Yes oriented to place and Yes oriented to time HENMT: COMMON NORMALS: normocephalic, atraumatic and hearing grossly normal bilaterally HEAD & SCALP: normocephalic and atraumatic Resp: COMMON NORMALS: normal respiratory effort, No retractions, No use of accessory muscles and clear to auscultation bilaterally AUSCULTATION: clear to auscultation bilaterally Cardio: COMMON NORMALS: regular rate, regular rhythm and No murmurs present (Cardio) RATE: regular rate RHYTHM: regular rhythm GI: COMMON NORMALS: Soft to palpation and No hepatosplenomegaly present A USCULTATION: Yes normoactive bowel sounds PALPATION: Yes Soft to palpation, No Tenderness to palpation present (GI), No Guarding due to palpation present (GI) and Yes No hepatosplenomegaly present Extremity: OTHER: Examination of the foot there is redness and erythema on the dorsum of the foot extending proximally. At the base of the foot there is some devascularized tissue circular lesion defect in the foot that has packing in place that was not removed at this time. There are some mild localized erythema adjacent to it no active drainage. Neuro: SENSORIUM/ORIENTATION: Yes oriented to person, Yes oriented to place and Yes oriented to time Skin: COMMON NORMALS: no rashes or lesions noted GENERAL SKIN EXAM: no rashes or lesions noted Course 2 Vital Signs: Vital signs: Vital Signs Temperature 100.1 F H 09/19/24 14:30 Pulse Rate 106 H 09/19/24 15:40 Respiratory Rate 18 09/19/24 15:40 Blood Pressure 116/71 09/19/24 15:40 Pulse Oximetry 97 09/19/24 15:40 Oxygen Delivery Me thod Room Air 09/19/24 14:30 MDM - General Adult Medical Decision Making Labs show DKA with possible early osteomyelitis at the foot discussed with podiatry they did not request any advanced imaging they want to reassess it themselves once her DKA is stabilized and will decide between debridement or advanced imaging. Discussed with hospitalist orders written. Initial DKA treatment started in the emergency room Medical Records I reviewed the patient's medical records. Lab Data I reviewed the patient's lab results. 09/19/24 10:51 09/19/24 10:51 Radiology Impressions Foot X-Ray 09/19/24 10:23 IMPRESSION: Soft tissue changes indicative of inflammation/necrosis. Changes in the base of the proximal phalanx of the fifth toe which could represent reactive change to adjacent inflammation however if the soft tissue infection has existed for a time, concern would be for osteomyelitis. Chest X-Ray 09/19/24 12:56 IMPRESSION: No acute findings. Laboratory Results WBC 13.48 10^3/uL (3.29-11.43) H 09/19/24 10:51 RBC 4.25 10^6/uL (3.85-5.65) 09/19/24 10:51 Hgb 11.50 g/dL (11.27-16.99) 09/19/24 10:51 Hct 36.0 % (36-47) 09/19/24 10:51 MCV 84.7 fl (85-98) L 09/19/24 10:51 MCH 27.1 pg (27-33) 09/19/24 10:51 MCHC 31.9 g/dL (30-55) 09/19/24 10:51 RDW 13.9 % (12.1-15.1) 09/19/24 10:51 Plt Count 177 10^3/cmm (157-399) 09/19/24 10:51 MPV 13.1 fL (7.4-10.4) H 09/19/24 10:51 Neut % (Auto) 88.6 % 09/19/24 10:51 Lymph % (Auto) 2.2 % 09/19/24 10:51 [place] % (Auto) 6.2 % 09/19/24 10:51 Eos % (Auto) 0.3 % 09/19/24 10:51 Baso % (Auto) 0.3 % 09/19/24 10:51 Neut # (Auto) 11.93 10^3/uL (1.8-7.7) H 09/19/24 10:51 Lymph # (Auto) 0.3 10^3/uL (0.8-4.8) L 09/19/24 10:51 [place] # (Auto) 0.8 10^3/uL (0.2-0.9) 09/19/24 10:51 Eos # (Auto) 0.0 10^3/uL (0.0-0.8) 09/19/24 10:51 Baso # (Auto) 0.0 10^3/uL (0.0-0.1) 09/19/24 10:51 Nucleated RBC % (auto) 0 % 09/19/24 10:51 Nucleated RBCs # 0.0 /100WBC 09/19/24 10:51 ESR 79 mm/hr (0-15) H 09/19/24 10:51 PT 15.00 SECONDS (12.1-14.9) H 09/19/24 10:51 INR 1.10 (0.8-1.2) 09/19/24 10:51 D-Dimer 1.39 ug/mLFEU (0-0.59) H 09/19/24 10:51 Specimen Type Arterial 09/19/24 10:28 Sample Site Radial, right 09/19/24 10:28 ABG pH 7.33 (7.35-7.45) L 09/19/24 10:28 ABG pCO2 17.5 mmHg (35-45) L* 09/19/24 10:28 ABG pO2 97.0 mmHg (80.0-100.0) 09/19/24 10: ABG PO2/FiO2 Ratio 461 09/19/24 10:28 ABG HCO3 9.1 mmol/L (22-26) L 09/19/24 10:28 ABG O2 Saturation 98.3 09/19/24 10:28 ABG Base Excess -14.7 mmol/L (-2.0-2.0) L 09/19/24 10:28 Johnny Test Pos 09/19/24 10:28 A-a O2 Gradient 4.0 mmHg (5-10) L 09/19/24 10:28 Hematocrit 35.7 % (37-47) L 09/19/24 10: Hgb O2 Saturation 98.2 % (95-100) 09/19/24 10:28 Carboxyhemoglobin 1.0 %THgb (0.4-20.1) 09/19/24 10:28 Methemoglobin < 0.0 % (0.4-1.5) L 09/19/24 10:28 Total Hemoglobin 11.6 g/dL (12-16) L 09/19/24 10:28 Sodium 132.0 mmol/L (131-143) 09/19/24 10:28 Potassium 4.3 mmol/L (3.5-5.0) 09/19/24 10:28 Glucose 410.0 mg/dL (70-115) H 09/19/24 10:28 Ionized Calcium 1.3 mmol/L (1.1-1.4) 09/19/24 10:28 O2 Delivery Device Room air 09/19/24 10:28 FiO2 21.0 % 09/19/24 10:28 Wire Brush Maker ID [place] 09/19/24 10:28 Sodium 129 mmol/L (136-145) L 09/19/24 10:51 Potassium 4.5 mmol/L (3.5-5.1) 09/19/24 10:51 Chloride 93 mmol/L (98-107) L 09/19/24 10:51 Carbon Dioxide 11 mmol/L (22-29) L 09/19/24 10:51 Anion Gap 29.5 (5-19) H 09/19/24 10:51 BUN 9 mg/dL (6-20) 09/19/24 10:51 Creatinine 0.9 mg/dL (0.5-0.9) 09/19/24 10:51 GFR Calculation 68.3 mL/min (90-130) L 09/19/24 10:51 Glucose 403 mg/dL (65-115) H 09/19/24 10:51 POC Glucose 373 mg/dL (70-110) H 09/19/24 10:05 Calculated Osmolality 284 mOsm/kg (285-295) L 09/19/24 10:51 Lactic Acid 3.1 mmol/L (0.5-2.2) H 09/19/24 10:51 Calcium 9.5 mg/dL (8.5-10.5) 09/19/24 10:51 Total Bilirubin 1.0 mg/dL (0.15-1.2) 09/19/24 10:51 AST 8 U/L (0-32) 09/19/24 10:51 ALT 6 U/L (0-33) 09/19/24 10:51 Alkaline Phosphatase 111 U/L (35-105) H 09/19/24 10:51 Troponin T Baseline < 6 ng/L (0-10) 09/19/24 10:51 C-Reactive Protein 452.8 mg/L (0.0-4.9) H 09/19/24 10:51 NT-Pro-B Natriuret Pep 85 pg/mL (0-125) 09/19/24 10:51 Total Protein 7.7 g/dL (6.6-8.7) 09/19/24 10:51 Albumin 3.8 g/dL (3.5-5.2) 09/19/24 10:51 Globulin 3.9 g/dL (1.3-4.6) 09/19/24 10:51 Procalcitonin 0.32 ng/mL (0-0.5) 09/19/24 10:51 HCG, Qual Negative (Negative) 09/19/24 10:51 Serum Ketones Positive (Negative) H 09/19/24 10:51 All radiology interpretation(s) finalized by discharge Critical Care Time 2 Critical Care Time: Critical Care Time: Yes Total Critical Care Time: 40 Attestation: The high probability of a clinically significant, sudden or life threatening deterioration of the patient's endocrine renal infectious disease system(s) required my full and direct attention, intervention and personal management. The critical care time is as shown. This time is in addition to time spent performing any reported procedures but includes the following: [x] Data and vital sign review and interpretation [x] Patient assessment, examination and intervention [x] Documentation [x] Medication orders and management Discharge Plan Discharge Patient Disposition: Admitted As Inpatient Admit Provider: Jerod Gustafson Clinical Impression: Diabetic ketoacidosis, Diabetic ulcer of left foot, Diabetic neuropathy, Sepsis Condition: Stable Coding Level of Care Code ED Grape Crusher for Ade Moreno
--- NOTE | 2024-09-19 10:23 | XR_ITS ---
WS: [id number] XR foot LT min 3V* [id number] REASON FOR EXAM: diabetic foot ulcer FINDINGS: Mottled hypointensity between the fourth and fifth MTP joints on the plantar aspect. Posterior and la teral extension of the mottling to about the mid portion of the fifth metatarsal. The medial base of the proximal phalanx demonstrates loss of cortex and trabeculae. No erosion or per iosteal reaction. The remainder the examination demonstrates mild arthropathic change in the midfoot with no focal bony abnormality. The subtalar joint is intact and the calcaneus is unremarkable. XR/XR foot LT min 3V* [id number] IMPRESSION: Soft tissue changes indicative of inflammation/necrosis. Changes in the base of the proximal phalanx of the fifth toe which could repres ent reactive change to adjacent inflammation however if the soft tissue infecti on has existed for a time, concern would be for osteomyelitis.
[2024-09-19 10:37] LABS: Glucose Point of Care 373 mg/dL (70-110)
[2024-09-19 10:39] LABS: ABG PCO2 17.5 mmHg (35-45); ABG PH Result 7.33 (7.35-7.45); Arterial Blood Gas Hematocrit 35.7 % (37-47); Base Excess ABG -14.7 mmol/L (-2.0-2.0); Blood Gas Allen Test Pos; Blood Gas Operator Identificat WALCI; Blood Gas Sample Site Radial, right; Blood Gas Sample Type Arterial; HCO3 ABG 9.1 mmol/L (22-26); HGB O2 Sat 98.2 % (95-100); Ionized Calcium Level - ABG 1.3 mmol/L (1.1-1.4); Methemoglobin < 0.0 % (0.4-1.5); Oxygen Device ROOM AIR; Oxygen Saturation ABG 98.3; PO2 FiO2 Ratio Arterial Blood 461; Potassium Level - ABG 4.3 mmol/L (3.5-5.0); Total Hemoglobin 11.6 g/dL (12-16)
[2024-09-19 11:02] LABS: Basophils % 0.3 %; Eosinophils % 0.3 %; Lymphocytes # 0.3 10^3/uL (0.8-4.8); Lymphocytes % 2.2 %; Mean Corpuscular HGB Conc 31.9 g/dL (30-55); Mean Corpuscular Hemoglobin 27.1 pg (27-33); Mean Corpuscular Volume 84.7 fl (85-98); Mean Platelet Volume 13.1 fL (7.4-10.4); Monocytes # 0.8 10^3/uL (0.2-0.9); Monocytes % 6.2 %; Neutrophils # 11.93 10^3/uL (1.8-7.7); Neutrophils % 88.6 %; Nucleated Red Blood Cells % 0 %; Platelet Count 177 10^3/cmm (157-399); Red Blood Count 4.25 10^6/uL (3.85-5.65); Red Cell Distribution Width 13.9 % (12.1-15.1); White Blood Count 13.48 10^3/uL (3.29-11.43)
[2024-09-19 11:16] LABS: Ketone (Acetest) Serum Positive (Negative)
[2024-09-19 11:17] LABS: Slide Review Slide Review Perform
[2024-09-19 11:23] LABS: Alanine Aminotransferase 6 U/L (0-33); Albumin Level 3.8 g/dL (3.5-5.2); Alkaline Phosphatase 111 U/L (35-105); Anion Gap 29.5 (5-19); Aspartate Amino Transferase 8 U/L (0-32); Blood Urea Nitrogen 9 mg/dL (6-20); Calcium 9.5 mg/dL (8.5-10.5); Carbon Dioxide 11 mmol/L (22-29); Chloride 93 mmol/L (98-107); Creatinine Clr Calc Pharmacy 96.7098; Globulin 3.9 g/dL (1.3-4.6); Glomerular Filtration Rate 68.3 mL/min (90-130); Glucose 403 mg/dL (65-115); Osmolality Calculated 284 mOsm/kg (285-295); Potassium 4.5 mmol/L (3.5-5.1); Sodium 129 mmol/L (136-145); Total Protein 7.7 g/dL (6.6-8.7)
[2024-09-19 11:24] LABS: Lactic Sepsis W/Reflex 3.1 mmol/L (0.5-2.2)
[2024-09-19 12:38] LABS: Procalcitonin 0.32 ng/mL (0-0.5)
[2024-09-19 12:42] LABS: Reflex Lactate Order REFLEX LACTIC ORDERD
[2024-09-19] MEDS: insulin regular-human 100 units/1 mL 10 UNIT IVP (12:42)
--- NOTE | 2024-09-19 12:42 | P.HP_ITS ---
Providers/Chief Complaint 2 Primary Care Provider: Pako Yu MD Chief Complaint: blood sugar high History of Present Illness Madison Moya is a 43 year old female with a past medical history of type 2 diabetes mellitus, hypertension, diabetic neuropathy, GERD, dyslipidemia, migraines, PCOS, irritable bowel syndrome, who has a history of left foot diabetic ulcer manage to wound care who presents to [facility] due to nausea, vomiting, chest pain, shortness of breath, abdominal pain for the last few days. In addition she is at increased swelling around her left foot diabetic ulcer. Currently patient is alert oriented x 3, following all commands, she reports feeling nauseous, diffuse abdominal pain, vomiting, poor appetite, she has been able to check her sugar in the last few days, she also been experiencing chest pain, complaint shortness of breath, she presented to wound care this morning, her blood sugars were read as high, diabetic ulcer, debrided by wound care, denies a cardiovascular history, denies a history of strokes, no history of COPD, does have diabetes, Review of Systems 2 Card: Reports: chest pain Resp: Reports: dyspnea GI: Reports: abdominal pain Medications/Allergies Home Medications Medication Instructions Recorded Confirmed Last Taken Type aspirin 81 mg tablet,delayed 81 mg PO DAILY 01/11/24 09/19/24 01/09/24 History release dicyclomine 20 mg tablet 20 mg PO TID PRN Spasms 01/11/24 09/19/24 Unknown History dulaglutide 1.5 mg/0.5 mL 1.5 mg SUBCUT Q7D 01/11/24 09/19/24 Unknown History subcutaneous pen injector (Trulicity) empagliflozin 25 mg tablet 25 mg PO DAILY 01/11/24 09/19/24 01/09/24 History (Jardiance) erenumab-aooe 140 mg/mL 140 mg SUBCUT Q30D 01/11/24 09/19/24 Unknown History subcutaneous auto-injector (Aimovig Autoinjector) ergocalciferol (vitamin D2) 1,250 1,250 mcg PO DAILY 01/11/24 09/19/24 01/09/24 History mcg (50,000 unit) capsule (Vitamin D2) famotidine 40 mg tablet 40 mg PO BID 01/11/24 09/19/24 01/09/24 History ferrous sulfate 137 mg (45 mg 45 mg PO BID 01/11/24 09/19/24 01/09/24 History iron) tablet,extended release hydroxyzine HCl 25 mg tablet 25 mg PO TID PRN Anxiety 01/11/24 09/19/24 Unknown History insulin glargine 100 unit/mL (3 See Rx Instructions .Route .COMPLEX 01/11/24 09/19/24 01/09/24 History mL) subcutaneous pen (Lantus Solostar U-100 Insulin) insulin lispro 100 unit/mL See Rx Instructions .Route .COMPLEX 01/11/24 09/19/24 01/09/24 History subcutaneous pen (Humalog KwikPen (U-100) Insulin) lactulose 10 gram/15 mL oral 15 ml PO DAILY 01/11/24 09/19/24 01/09/24 History solution lamotrigine 100 mg tablet 200 mg PO BID 01/11/24 09/19/24 01/09/24 History losartan 50 mg tablet 50 mg PO DAILY 01/11/24 09/19/24 01/09/24 History magnesium oxide 400 mg PO BID 01/11/24 09/19/24 01/09/24 History metformin 500 mg tablet,extended 1,000 mg PO BID 01/11/24 09/19/24 01/09/24 History release 24 hr ondansetron 4 mg disintegrating 4 mg PO Q8H PRN Nausea 01/11/24 09/19/24 Unknown History tablet pravastatin 20 mg tablet 20 mg PO QPM 01/11/24 09/19/24 01/09/24 History prucalopride 2 mg tablet 2 mg PO DAILY 01/11/24 09/19/24 01/09/24 History (Motegrity) rizatriptan 10 mg tablet 10 mg PO Q2H PRN Headache 01/11/24 09/19/24 Unknown History escitalopram oxalate 10 mg tablet 10 mg PO DAILY anxiety #30 tabs 02/07/24 09/19/24 Unknown Rx (Lexapro) pregabalin 50 mg capsule 50 mg PO TID neuropathy/migraines 04/10/24 09/19/24 Unknown Rx #90 caps hydrocodone 5 mg-acetaminophen 325 1 tab PO Q8H PRN pain #7 tabs 04/29/24 09/19/24 Unknown Rx mg tablet metoclopramide HCl 10 mg tablet 10 mg PO QID #120 tabs 06/22/24 09/19/24 Unknown Rx blood-glucose meter,continuous #1 ea 07/17/24 09/19/24 Unknown Rx (FreeStyle Solo 3 [place]) blood-glucose sensor (FreeStyle #3 ea 07/17/24 09/19/24 Unknown Rx Solo 3 Sensor device) pantoprazole 40 mg tablet,delayed 40 mg PO BID PRN acid reflux #60 08/20/24 09/19/24 Unknown Rx release tabs azithromycin 250 mg tablet See Rx Instructions .Route .COMPLEX 09/19/24 09/19/24 Unknown History linezolid 600 mg tablet 600 mg PO BID #14 tabs 09/19/24 09/19/24 Unknown Rx metronidazole 500 mg tablet 500 mg PO Q8H #21 tabs 09/19/24 09/19/24 Unknown Rx sulfamethoxazole 800 1 tab PO [id number] 09/19/24 09/19/24 Unknown History mg-trimethoprim 160 mg tablet Allergies Allergy/AdvReac Type Severity Reaction Status Date / Time lisinopril Allergy ADR-Cough Verified 09/19/24 10:05 PFSH Acute 2 PFSH: Medical History History of abnormal mammogram 02/07/2024 patient reported abnormal mammogram, time for 6-month follow-up Chronic GERD Diabetic retinopathy associated with controlled type 2 diabetes mellitus Anxiety and depression Dyslipidemia associated with type 2 diabetes mellitus Migraines DM II (diabetes mellitus, type II), controlled Gastroparesis Degenerative disc disease History of PCOS HTN (hypertension) with goal to be determined Diabetic neuropathy IBS (irritable bowel syndrome) Broken nose Fatty liver Surgical History History of cholecystectomy Family History Father Diabetes Mother Diabetes Fatty liver Social History Smoking and tobacco/nicotine status: former use of tobacco/nicotine Quit status (tobacco/nicotine): has quit using Alcohol intake: former Substance/Drug Use: never Vitals/I&O/Wt Last Vital Signs Temp 99.6 F 09/19/24 10:05 Pulse 136 H 09/19/24 10:05 Resp 20 H 09/19/24 10:05 BP 102/81 09/19/24 10:05 Pulse Ox 100 09/19/24 10:05 09/18/24 09/19/24 09/19/24 22:59 06:59 14:59 Intake Total 0 / 0 Balance 0 / 0 Weight last 48 hrs Weight 90.718 kg Physical Exam 2 Const: COMMON NORMALS: no acute distress and patient oriented x3 HENMT: COMMON NORMALS: normocephalic HEAD & SCALP: normocephalic Eye: COMMON NORMALS: Equal, round and reactive pupils present Neck/C-Spine: COMMON NORMALS: no JVD Lymph: LYMPHATIC: no lymphadenopathy noted Resp: COMMON NORMALS: normal respiratory effort, No retractions, No use of accessory muscles and clear to auscultation bilaterally AUSCULTATION: clear to auscultation bilaterally Cardio: COMMON NORMALS: no JVD, regular rate, regular rhythm, S1 normal heart sound present and S2 normal heart sound present RATE: tachycardic RHYTHM: regular rhythm HEART SOUNDS: S1 normal heart sound present and S2 normal heart sound present GI: COMMON NORMALS: Normal to inspection, nondistended, normoactive bowel sounds present, Soft to palpation and non-tender Neuro: COMMON NORMALS: patient oriented x3, CN's II-XII intact bilaterally and moves all extremities Psych: COMMON NORMALS: mental status grossly normal Skin: NARRATIVE SKIN EXAM: Left foot, plantar aspect, diabetic ulcer, measuring 1 x 1 cm, with surrounding erythema, extending to the dorsal aspect of the midfoot with surrounding tenderness to palpation Bilateral DP PT pulses palpable Right foot, lateral callus present Data 09/19/24 10:51 09/19/24 10:51 Micro: Microbiology 09/19/24 11:05 Blood Culture - Preliminary Blood SPECIMEN COLLECTED 09/19/24 10:51 Blood Culture - Preliminary Blood SPECIMEN COLLECTED A&P Assessment and plan (1) Diabetic ketoacidosis: (2) Diabetic ulcer of left foot: (3) Sepsis: Plan Diabetic ketoacidosis -Anion gap 29.5, ketones positive, blood sugar 403, pH 7.33, bicarb 11 Plan -Monitor in ICU -P.o. -DKA protocol -Every hour blood sugars -BMP every 4 hours -Insulin drip -Normal saline at 125 cc an hour -Once blood sugar drops below 200, switch to D5 half-normal saline with 20 KCl -Once anion gap closes, less than 16, switch to subcu insulin and Lantus Left foot diabetic ulcer -ESR 79, CRP 452 -Will do MRI left foot -Vancomycin -Zosyn -Follow blood cultures -Follow tissue cultures -Podiatry consulted Sepsis -Abscess features met given elevated lactic acid, 11 CRP, Pro-Junior, tachycardia, tachypnea, source of infection to his left foot -Will obtain a UA -Obtain chest x-ray Complaints of chest pain and shortness of breath -D-dimer -Troponin series EKG series -Venous ultrasound Type 2 diabetes mellitus Full code Lovenox for DVT prophylaxis Patient requires hospitalization, inpatient, greater than 2 minutes, for diuretic ketoacidosis left foot diabetic ulcer, sepsis, complaints of chest pain shortness of breath Attestations 2 Medical Necessity Statement*: Patient requires hospitalization, inpatient, greater than 2 midnights, for diuretic ketoacidosis left foot diabetic ulcer, sepsis, complaints of chest pain shortness of breath Coding Level of Care Code Critical Care >/= 30 minutes Critical care time (in minutes): 45 The high probability of a clinically significant, sudden or life threatening deterioration, as referenced in this documentation, required my full and direct attention, intervention and personal management. The critical care time shown is in addition to time spent performing any reported separately billable procedures and includes the following: [x] Data and vital sign review and interpretation [x ] Patient assessment, examination and intervention [x] Medication orders and management [x] Patient/Family updates as able [x] Care Coordination and Documentation. Diagnoses Diabetic ketoacidosis E11.10 Diabetic ulcer of left foot E11.621; L97.529 Sepsis A41.9
[2024-09-19 12:44] LABS: C Reactive Protein 452.8 mg/L (0.0-4.9)
[2024-09-19 12:45] LABS: Erythrocyte Sedimentation Rate 79 mm/hr (0-15)
--- NOTE | 2024-09-19 12:47 | USCV_ITS ---
Madison Moya Age: 43 Gender: F : 1980 Exam Date: 09/19/2024 13:08 Ordering Phys: Jerod Gustafson MD Technologist: Exam Location: [facility] [place] Indication: swelling PROCEDURES: The venous duplex Doppler examination of both lower extremities was performed in the standard fashion. The following venous structures were evaluated: common femoral vein, profunda vein, proximal portion of the greater saphenous vein, superficial femoral vein, and the popliteal vein. FINDINGS: Normal 2-D Doppler and augmentation and compressibility throughout the lower extremity venous structures. Additional imaging through the proximal calf veins also reveals no thrombus. Limited evaluation of the greater saphenous vein is patent with no thrombus. CONCLUSIONS No evidence of right lower extremity DVT. No evidence of left lower extremity DVT. Giovanny Corbin MD (Electronically Signed) Final Date: 19 September 2024 14:40 S
--- NOTE | 2024-09-19 12:48 | P.CONIM_ITS ---
Providers/Reason For Consult 2 Consulting Physician/Specialty*: Sean Duron.P.M./podiatry Reason for Consult*: Left foot diabetic foot infection Attending Physician: Jerod Gustafson MD Primary Care Provider: Pako Yu MD History of Present Illness History of Present Illness The patient, Madison Moya, is a 43-year-old female who was referred to the emergency department from wound care over worsening left foot wound. She reports experiencing a wound on the bottom of her left foot under the 5th metatarsal. She has no history of a similar wound before. Madison describes feeling weak and unwell for the past day or two, with a temperature range of 99 to 101 degrees Fahrenheit. She mentions having difficulty keeping down any kind of drink and has recently vomited. Patient states that the malaise and vomiting has been occurring for the past couple days. Podiatry was consulted to evaluate patient provide further treatment recommendations Review of Systems 2 General: Reports: 10 or more systems reviewed and unremarkable except in HPI and below Const: Denies: fever(s), chills, body aches or change in appetite Eyes: Denies: change in vision or blurry vision Card: Denies: chest pain, palpitations or irregular heart rhythm Resp: Denies: dyspnea GI: Denies: abdominal pain, nausea, vomiting or diarrhea Musc: Reports: joint stiffness Skin/Breast: Reports: non-healing lesions and lesions Neuro: Reports: numbness in extremities Medications/Allergies Home Medications Medication Instructions Recorded Confirmed Last Taken Type aspirin 81 mg tablet,delayed 81 mg PO DAILY 01/11/24 09/19/24 01/09/24 History release dicyclomine 20 mg tablet 20 mg PO TID PRN Spasms 01/11/24 09/19/24 Unknown History dulaglutide 1.5 mg/0.5 mL 1.5 mg SUBCUT Q7D 01/11/24 09/19/24 Unknown History subcutaneous pen injector (Trulicity) empagliflozin 25 mg tablet 25 mg PO DAILY 01/11/24 09/19/24 01/09/24 History (Jardiance) erenumab-aooe 140 mg/mL 140 mg SUBCUT Q30D 01/11/24 09/19/24 Unknown History subcutaneous auto-injector (Aimovig Autoinjector) ergocalciferol (vitamin D2) 1,250 1,250 mcg PO DAILY 01/11/24 09/19/24 01/09/24 History mcg (50,000 unit) capsule (Vitamin D2) famotidine 40 mg tablet 40 mg PO BID 01/11/24 09/19/24 01/09/24 History ferrous sulfate 137 mg (45 mg 45 mg PO BID 01/11/24 09/19/24 01/09/24 History iron) tablet,extended release hydroxyzine HCl 25 mg tablet 25 mg PO TID PRN Anxiety 01/11/24 09/19/24 Unknown History insulin glargine 100 unit/mL (3 See Rx Instructions .Route .COMPLEX 01/11/24 09/19/24 01/09/24 History mL) subcutaneous pen (Lantus Solostar U-100 Insulin) insulin lispro 100 unit/mL See Rx Instructions .Route .COMPLEX 01/11/24 09/19/24 01/09/24 History subcutaneous pen (Humalog KwikPen (U-100) Insulin) lactulose 10 gram/15 mL oral 15 ml PO DAILY 01/11/24 09/19/24 01/09/24 History solution lamotrigine 100 mg tablet 200 mg PO BID 01/11/24 09/19/24 01/09/24 History losartan 50 mg tablet 50 mg PO DAILY 01/11/24 09/19/24 01/09/24 History magnesium oxide 400 mg PO BID 01/11/24 09/19/24 01/09/24 History metformin 500 mg tablet,extended 1,000 mg PO BID 01/11/24 09/19/24 01/09/24 History release 24 hr ondansetron 4 mg disintegrating 4 mg PO Q8H PRN Nausea 01/11/24 09/19/24 Unknown History tablet pravastatin 20 mg tablet 20 mg PO QPM 01/11/24 09/19/24 01/09/24 History prucalopride 2 mg tablet 2 mg PO DAILY 01/11/24 09/19/24 01/09/24 History (Motegrity) rizatriptan 10 mg tablet 10 mg PO Q2H PRN Headache 01/11/24 09/19/24 Unknown History escitalopram oxalate 10 mg tablet 10 mg PO DAILY anxiety #30 tabs 02/07/24 09/19/24 Unknown Rx (Lexapro) pregabalin 50 mg capsule 50 mg PO TID neuropathy/migraines 04/10/24 09/19/24 Unknown Rx #90 caps hydrocodone 5 mg-acetaminophen 325 1 tab PO Q8H PRN pain #7 tabs 04/29/24 09/19/24 Unknown Rx mg tablet metoclopramide HCl 10 mg tablet 10 mg PO QID #120 tabs 06/22/24 09/19/24 Unknown Rx blood-glucose meter,continuous #1 ea 07/17/24 09/19/24 Unknown Rx (FreeStyle Solo 3 [place]) blood-glucose sensor (FreeStyle #3 ea 07/17/24 09/19/24 Unknown Rx Solo 3 Sensor device) pantoprazole 40 mg tablet,delayed 40 mg PO BID PRN acid reflux #60 08/20/24 09/19/24 Unknown Rx release tabs azithromycin 250 mg tablet See Rx Instructions .Route .COMPLEX 09/19/24 09/19/24 Unknown History linezolid 600 mg tablet 600 mg PO BID #14 tabs 09/19/24 09/19/24 Unknown Rx metronidazole 500 mg tablet 500 mg PO Q8H #21 tabs 09/19/24 09/19/24 Unknown Rx sulfamethoxazole 800 1 tab PO [id number] 09/19/24 09/19/24 Unknown History mg-trimethoprim 160 mg tablet Allergies Allergy/AdvReac Type Severity Reaction Status Date / Time lisinopril Allergy ADR-Cough Verified 09/19/24 10:05 PFSH Acute 2 PFSH: Medical History History of abnormal mammogram 02/07/2024 patient reported abnormal mammogram, time for 6-month follow-up Chronic GERD Diabetic retinopathy associated with controlled type 2 diabetes mellitus Anxiety and depression Dyslipidemia associated with type 2 diabetes mellitus Migraines DM II (diabetes mellitus, type II), controlled Gastroparesis Degenerative disc disease History of PCOS HTN (hypertension) with goal to be determined Diabetic neuropathy IBS (irritable bowel syndrome) Broken nose Fatty liver Surgical History History of cholecystectomy Family History Father Diabetes Mother Diabetes Fatty liver Social History Smoking and tobacco/nicotine status: former use of tobacco/nicotine Quit status (tobacco/nicotine): has quit using Alcohol intake: former Substance/Drug Use: never Vitals/I&O/Wt Last Vital Signs Temp 99.6 F 09/19/24 10:05 Pulse 136 H 09/19/24 10:05 Resp 20 H 09/19/24 10:05 BP 102/81 09/19/24 10:05 Pulse Ox 100 09/19/24 10:05 09/18/24 09/19/24 09/19/24 22:59 06:59 14:59 Intake Total 0 / 0 Balance 0 / 0 Weight last 48 hrs Weight 200 lb Physical Exam 2 Narrative: BELOW IS A FOCUSED LOWER EXTREMITY EXAM GENERAL: A&O x 3 VASCULAR: DP/PT pulses palpable 2/4 with CFT intact, <3seconds to distal digits DERMATOLOGICAL: Wound # 1 Location: Plantar left fifth metatarsal head Size: 0.9 x 1.0 x 1.0 cm with macerated hyperkeratotic rim, active purulent drainage. Undermining: Undermining 0.5 cm from 12:00 to 3 o'clock position Tracking: Tracking into left fourth interspace Probe to bone: Negative probe to bone, positive probe to joint capsule Borders: Macerated, hyperkeratotic Base: Stranded fibrotic tissue Drainage: Purulent Malodor: Negative MUSCULOSKELETAL: No pain with palpation of periwound area or midfoot area. No pain with calf squeeze. NEUROLOGICAL: Neurological sensation to the affected foot and ankle is diminished through L4-S1 dermatomes via 10g SWMF, diminished sensation extends proximally to the level of the ankle IMAGING: Three-view x-rays of left foot taken the emergency department show cortical irregularity of medial base of proximal phalanx as well as extensive soft tissue gas surrounding the fifth metatarsophalangeal joint. Data 09/19/24 10:51 09/19/24 10:51 Micro: Microbiology 09/19/24 11:05 Blood Culture - Preliminary Blood SPECIMEN COLLECTED 09/19/24 10:51 Blood Culture - Preliminary Blood SPECIMEN COLLECTED A&P Assessment and plan (1) Diabetic ulcer of left foot: (2) Sepsis: (3) Gas gangrene: Plan -Chronic ulceration left foot fifth metatarsal head region, gas gangrene, cellulitis, producing sepsis -Labs and vitals reviewed -WBC 13.48 -ESR 79 -CRP 452.8 -HR 141 -RR 19 -Tmax 100.1 -Cultures blood?NGTD; wound?pending -Abx Vanco/Zosyn -Diet: N.p.o. -Patient underwent bedside debridement in the emergency department to stabilize foot wound. See general procedure note for details -Patient will be taken to the OR tomorrow morning 09/20/2024 for incision and drainage left foot. MRI to be ordered in preparation for surgery. -Pain Mgmt: Per primary team -Weight bearing: To left foot for transfers only -Dressings: Betadine wet-to-dry dressing applied by podiatry in the emergency department. Leave clean, dry, intact until surgery tomorrow morning -Continue current Abx therapy until ID and Sensitivity results -Trend labs -Discharge plan: To be determined -Podiatry will continue to round on patient daily and provide recommendations Coding Level of Care Code Acute Code for [facility] Diagnoses Diabetic ulcer of left foot E11.621; L97.529 Sepsis A41.9 Gas gangrene A48.0
[2024-09-19] MEDS: sodium chloride 0.9% 1,000 ML 999 ML IV (12:51)
[2024-09-19] MEDS: linezolid premix 600 MG/300 ML PREMIX 300 MG IV (12:51)
--- NOTE | 2024-09-19 12:53 | PM.ACPR ---
Procedure/Consent Consent: Consent for Procedure: Consent obtained from patient Additional Consent Information: Left foot excisional wound debridement Procedure Narrative: PROCEDURE: Left foot wound excisional debridement down to level of deep fascia CPT 70638 Location: Plantar left fifth metatarsal head Local Anesthesia: No anesthesia needed secondary to peripheral neuropathy Consent: Verbal consent obtained for left foot excisional wound debridement Sterile Prep: Alcohol Details: Dermal curette was used to perform excisional debridement down to the level of deep fascia. Hemostasis was achieved via manual compression. Wound was noted to track to deep fascia. However, no probe to bone. Tracking into fourth interspace. Predebridement measurements: 0.9 x 1.0 x 1.0 cm Postdebridement measurements: 2.7 x 2.0 x 1.2 cm Hemostasis: Via manual compression Irrigation: Sterile saline Dressing: Betadine wet-to-dry packing Estimated Blood Loss: 3 cc Offloading: Weightbearing to left foot for transfers only Wound culture taken of deep tissue and sent to micro for ID and sensitivity.
[2024-09-19 12:54] LABS: HCG, Serum Qual Negative (Negative)
--- NOTE | 2024-09-19 12:56 | XRR_ITS ---
PROCEDURE INFORMATION: Exam: XR Chest Exam date and time: 09/19/2024 1:18 PM Age: 43 years old Clinical indication: Shortness of breath; Additional info: SOB TECHNIQUE: Imaging protocol: Radiologic exam of the chest. Views: 1 view. COMPARISON: CR XR chest 1V portable [id number] 04/29/2024 12:57 AM FINDINGS: Lungs: Unremarkable. No consolidation. Pleural spaces: Unremarkable. No pleural effusion. No pneumothorax. Heart/Mediastinum: Unremarkable. No cardiomegaly. Bones/joints: Unremarkable. XR/XR chest 1V portable [id number] IMPRESSION: No acute findings.
--- NOTE | 2024-09-19 13:07 | ECG_ITS ---
[facility] Test Date: 2024-09-19 Pat Name: Madison Moya Department: Room: [facility]08 Gender: Female Pathology Tech: : 1980 Requested By: Jerod Gustafson Order Number: [id number] Reading MD: ANETTE FARFAN Measurements Intervals [place] Rate: 115 P: 11 VA: 149 QRS: 33 QRSD: 87 T: 61 QT: 304 QTc: 421 Interpretive Statements SINUS TACHYCARDIA ABNORMAL RHYTHM ECG Compared to ECG 04/29/2024 01:50:15 No significant changes Electronically Signed On 09-21-2024 23:29:42 BASEBALL SCOUT by ANETTE FARFAN [id number]
[2024-09-19 13:13] LABS: D Dimer 1.39 ug/mLFEU (0-0.59); Troponin(5th) Baseline < 6 ng/L (0-10)
[2024-09-19 13:17] LABS: NT Pro B Type Natriuretic Pept 85 pg/mL (0-125)
[2024-09-19 13:38] LABS: Troponin 5 2HR Delta 0.00001 ABS# (0-10)
[2024-09-19 14:04] LABS: Glucose Point of Care 435 mg/dL (70-110)
[2024-09-19] MEDS: INSULIN REGULAR IN 0.9 % NACL 100 UNIT/100 ML BAG 9 UNIT IV (14:07)
--- NOTE | 2024-09-19 14:19 | MRR_ITS ---
PROCEDURE INFORMATION: Exam: MR Left Lower Extremity Other Than Joint Without Contrast; Foot Exam date and time: 09/19/2024 4:35 PM Age: 43 years old Clinical indication: Condition or disease; Other: Diabetic ulcer; Patient HX: Ulcer on left foot - area marked. Started in July 2024 non healing- open wound. Dka; Additional info: Diabetic ulcer, osteo TECHNIQUE: Imaging protocol: Magnetic resonance imaging of the left lower extremity without contrast. Exam focused on the foot. COMPARISON: CR XR foot LT min 3V* [id number] 09/19/2024 10:35 AM FINDINGS: Soft tissue ulceration of the plantar aspect of the lateral forefoot with soft tissue gas in the region of the 5th metatarsophalangeal joint and 5th toe suggestive of gas-forming infection. No discrete fluid collection to suggest abscess. The ulcer and soft tissue gas extends into the region of the 5th metatarsophalangeal joint with an associated joint effusion and marrow edema on either side of the joint suspicious for early involvement of the 5th MTP joint. No evidence of osteomyelitis at this time. Trace 5th toe interphalangeal joint effusion without convincing evidence of involvement. Remainder of the rays are intact. No evidence of acute fracture or malalignment. Tarsometatarsal articulations and Lisfranc ligament are intact. MR/MR foot LT wo con* [id number] IMPRESSION: 1. Findings suspicious for early septic 5th metatarsophalangeal joint. No evidence of osteomyelitis or abscess at this time. 2. Soft tissue air in the lateral forefoot suggestive of infection with a gas-forming organism.
[2024-09-19 14:40] LABS: Glucose Point of Care 341 mg/dL (70-110)
--- NOTE | 2024-09-19 14:43 | ECG_ITS ---
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
[2024-09-19 14:44] LABS: Lactic Acid level (Lactate) 1.9 mmol/L (0.5-2.2)
[2024-09-19] MEDS: pantoprazole 40 mg SDV IVP (14:50)
[2024-09-19] MEDS: enoxaparin 40 mg/0.4 mL Syringe SUBCUT (14:50)
[2024-09-19] MEDS: pregabalin 50 mg Capsule PO ×2 (14:53→20:04)
[2024-09-19] MEDS: sodium chloride 0.9% 1,000 ML 125 ML IV ×2 (14:55→14:56)
[2024-09-19] MEDS: piperacillin-tazobactam 3.375 GM in sodium chloride 0.9% (plus) 50 ML IV ×2 (15:03→19:49)
[2024-09-19] MEDS: vancomycin 1,500 MG/300 ML PIGGYBACK 200 MG IV ×2 (15:05→17:35)
[2024-09-19 15:18] LABS: Glucose Point of Care 303 mg/dL (70-110)
--- NOTE | 2024-09-19 15:32 | PC.NURSE ---
received patient from er staff at 1405. Patient is alert. Oriented to person, place, time, and situation. BP: 113/75, HR: 109, SPO2: 97% on room air, temp: 100.1. Blood sugar checked on arrival: 341 Voided 700mL urine on arrival to ICU.
[2024-09-19 16:09] LABS: Glucose Point of Care 243 mg/dL (70-110)
[2024-09-19 16:28] LABS: Estmated Average Glucose 252; Hemoglobin A1C 10.4 % (4.0-6.0)
[2024-09-19 16:41] LABS: Anion Gap 22.8 (5-19); Blood Urea Nitrogen 9 mg/dL (6-20); Calcium 9.3 mg/dL (8.5-10.5); Carbon Dioxide 14 mmol/L (22-29); Chloride 99 mmol/L (98-107); Chol HDL Ratio 2.86 mg/dL (0.0-4.40); Cholesterol 106 mg/dL (0-200); Creatinine Clr Calc Pharmacy 108.3874; Glomerular Filtration Rate 78.3 mL/min (90-130); Glucose 301 mg/dL (65-115); HDL Cholesterol 37 mg/dL (60-100); LDL Cholesterol Calculated 52 mg/dL (50-129); LDL HDL Ratio 1.41 RATIO (0.00-3.22); Magnesium 1.7 mg/dL (1.7-2.3); Osmolality Calculated 284 mOsm/kg (285-295); Phosphorus 1.8 mg/dL (2.5-4.5); Potassium 3.8 mmol/L (3.5-5.1); Sodium 132 mmol/L (136-145); Thyroid Stimulating Hormone 0.75 uIU/mL (0.27-4.20); Triglycerides 87 mg/dL (0-150)
[2024-09-19] MEDS: lamoTRIgine 100 mg Tablet 200 MG PO (17:41)
[2024-09-19] MEDS: atorvastatin 40 mg Tablet 20 MG PO (17:41)
[2024-09-19 17:46] LABS: Glucose Point of Care 236 mg/dL (70-110)
[2024-09-19 17:46] LABS: Glucose Point of Care 239 mg/dL (70-110)
[2024-09-19 18:17] LABS: Troponin 5 6HR Delta 0.00001 ng/L (0-12)
[2024-09-19] MEDS: D5-NS 0.45% + KCL 20 mEq 20 MEQ/1,000 ML BAG 125 MEQ IV (18:37)
[2024-09-19] MEDS: potassium chloride ER 20 mEq Tablet 40 MEQ PO (18:40)
--- NOTE | 2024-09-19 18:43 | ECG_ITS ---
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
[2024-09-19 19:03] LABS: Glucose Point of Care 200 mg/dL (70-110)
--- NOTE | 2024-09-19 19:06 | PC.NURSE ---
Shift SUmmary: uneventful shift. Went to MRI, results are pending read by [facility]. On an insulin drip, recently switched to dextrose containing fluids. NPO for surgery tomorrow morning.
[2024-09-19] MEDS: ondansetron 2 mg/ML SDV 2 mL 4 MG IVP (20:04)
[2024-09-19 20:39] LABS: Anion Gap 17.2 (5-19); Blood Urea Nitrogen 8 mg/dL (6-20); Calcium 8.8 mg/dL (8.5-10.5); Carbon Dioxide 16 mmol/L (22-29); Chloride 104 mmol/L (98-107); Creatinine Clr Calc Pharmacy 144.5165; Glomerular Filtration Rate 109.1 mL/min (90-130); Glucose 221 mg/dL (65-115); Magnesium 1.8 mg/dL (1.7-2.3); Osmolality Calculated 281 mOsm/kg (285-295); Phosphorus 1.8 mg/dL (2.5-4.5); Potassium 4.2 mmol/L (3.5-5.1); Sodium 133 mmol/L (136-145)
[2024-09-19 20:48] LABS: Glucose Point of Care 213 mg/dL (70-110)
[2024-09-19] MEDS: acetaminophen 325 mg Tablet 650 MG PO (22:07)
[2024-09-19 22:08] LABS: Glucose Point of Care 231 mg/dL (70-110)
[2024-09-19 23:08] LABS: Glucose Point of Care 228 mg/dL (70-110)
[2024-09-20] VITALS (45 sets, daily range): BP systolic 72–161; BP diastolic 44–90; PULSE 60–127; RESP 13–25; TEMP 36.2–39.9; O2SAT 95–100
[2024-09-20 00:05] LABS: Anion Gap 18.1 (5-19); Blood Urea Nitrogen 8 mg/dL (6-20); Calcium 8.9 mg/dL (8.5-10.5); Carbon Dioxide 16 mmol/L (22-29); Chloride 102 mmol/L (98-107); Creatinine Clr Calc Pharmacy 144.5165; Glomerular Filtration Rate 109.1 mL/min (90-130); Glucose 214 mg/dL (65-115); Magnesium 1.8 mg/dL (1.7-2.3); Osmolality Calculated 279 mOsm/kg (285-295); Phosphorus 1.6 mg/dL (2.5-4.5); Potassium 4.1 mmol/L (3.5-5.1); Sodium 132 mmol/L (136-145)
[2024-09-20 00:12] LABS: Glucose Point of Care 241 mg/dL (70-110)
[2024-09-20 01:15] LABS: Glucose Point of Care 213 mg/dL (70-110)
[2024-09-20 02:22] LABS: Glucose Point of Care 183 mg/dL (70-110)
[2024-09-20] MEDS: D5-NS 0.45% + KCL 20 mEq 20 MEQ/1,000 ML BAG 125 MEQ IV ×2 (02:41→11:55)
[2024-09-20] MEDS: INSULIN REGULAR IN 0.9 % NACL 100 UNIT/100 ML BAG IV ×2 (03:55→08:55)
[2024-09-20] MEDS: vancomycin 1,500 MG/300 ML PIGGYBACK 200 MG IV ×2 (03:55→16:02)
[2024-09-20] MEDS: piperacillin-tazobactam 3.375 GM in sodium chloride 0.9% (plus) 50 ML IV ×2 (03:58→11:40)
[2024-09-20 03:59] LABS: Anion Gap 18.3 (5-19); Blood Urea Nitrogen 7 mg/dL (6-20); Calcium 9.1 mg/dL (8.5-10.5); Carbon Dioxide 17 mmol/L (22-29); Chloride 103 mmol/L (98-107); Creatinine Clr Calc Pharmacy 144.5165; Glomerular Filtration Rate 109.1 mL/min (90-130); Glucose 180 mg/dL (65-115); Magnesium 1.9 mg/dL (1.7-2.3); Osmolality Calculated 281 mOsm/kg (285-295); Phosphorus 1.7 mg/dL (2.5-4.5); Potassium 4.3 mmol/L (3.5-5.1); Sodium 134 mmol/L (136-145)
[2024-09-20] MEDS: acetaminophen 325 mg Tablet 650 MG PO ×2 (05:03→11:04)
[2024-09-20] MEDS: metoclopramide 5 mg/mL SDV 2 mL IVP ×2 (05:04→21:17)
[2024-09-20 05:18] LABS: Glucose Point of Care 186 mg/dL (70-110)
[2024-09-20 05:18] LABS: Glucose Point of Care 180 mg/dL (70-110)
--- NOTE | 2024-09-20 06:20 | P.ANESASSM_ITS ---
Pre-Anesthetic Assessment Height/Weight: Height 5 ft 9 in Weight 198 lb 6.656 oz Temp Pulse Resp BP Pulse Ox O2 Del Method 102.7 F H 127 H 23 H 136/76 100 Room Air 09/20/24 05:00 09/20/24 05:00 09/20/24 05:00 09/20/24 05:00 09/20/24 05:00 09/20/24 05:00 Preop Diagnosis: Osteomyelitis Operation Date: 09/20/24 07:00 Proposed Procedures p Incision And Drainage(Left) - Moise Sanchez DPM Was Beta Geovanni taken within 24 hours: N/A Was Clonidine taken within 24 hours: N/A Last intake: Intake Last Liquid Date 09/19/24 Last Solid Date 09/19/24 Social No alcohol and No tobacco quit smoking in 2010 Exam alert, oriented x 3, clear to auscultation bilaterally and regular rate & rhythm Anesthetic Plan ASA status: 4 Anesthesia: General Other: No prior issues with anesthesia NPO since yesterday Patient admitted yesterday with osteomyelitis of the foot and DKA Blood sugar 228 at admission, 180 this a.m. History of GERD on Protonix Hypertension on losartan Patient does take Trulicity and insulin for her diabetes Patient was tachycardic with a.m., temp 102.7. given oral tylenol @0520 insulin gtt running @ 1units/hr Plan for GETA Medications/Allergies Home Medications Medication Instructions Recorded Confirmed Last Taken Type aspirin 81 mg tablet,delayed 81 mg PO DAILY 01/11/24 09/19/24 01/09/24 History release dicyclomine 20 mg tablet 20 mg PO TID PRN Spasms 01/11/24 09/19/24 Unknown History dulaglutide 1.5 mg/0.5 mL 1.5 mg SUBCUT Q7D 01/11/24 09/19/24 Unknown History subcutaneous pen injector (Trulicity) empagliflozin 25 mg tablet 25 mg PO DAILY 01/11/24 09/19/24 01/09/24 History (Jardiance) erenumab-aooe 140 mg/mL 140 mg SUBCUT Q30D 01/11/24 09/19/24 Unknown History subcutaneous auto-injector (Aimovig Autoinjector) ergocalciferol (vitamin D2) 1,250 1,250 mcg PO DAILY 0509/19/24 01/09/24 History mcg (50,000 unit) capsule (Vitamin D2) famotidine 40 mg tablet 40 mg PO BID 01/11/24 09/19/24 01/09/24 History ferrous sulfate 137 mg (45 mg 45 mg PO BID 01/11/24 09/19/24 01/09/24 History iron) tablet,extended release hydroxyzine HCl 25 mg tablet 25 mg PO TID PRN Anxiety 01/11/24 09/19/24 Unknown History insulin glargine 100 unit/mL (3 See Rx Instructions .Route .COMPLEX 01/11/24 09/19/24 01/09/24 History mL) subcutaneous pen (Lantus Solostar U-100 Insulin) insulin lispro 100 unit/mL See Rx Instructions .Route .COMPLEX 01/11/24 09/19/24 01/09/24 History subcutaneous pen (Humalog KwikPen (U-100) Insulin) lactulose 10 gram/15 mL oral 15 ml PO DAILY 01/11/24 09/19/24 01/09/24 History solution lamotrigine 100 mg tablet 200 mg PO BID 01/11/24 09/19/24 01/09/24 History losartan 50 mg tablet 50 mg PO DAILY 01/11/24 09/19/24 01/09/24 History magnesium oxide 400 mg PO BID 01/11/24 09/19/24 01/09/24 History metformin 500 mg tablet,extended 1,000 mg PO BID 01/11/24 09/19/24 01/09/24 History release 24 hr ondansetron 4 mg disintegrating 4 mg PO Q8H PRN Nausea 01/11/24 09/19/24 Unknown History tablet pravastatin 20 mg tablet 20 mg PO QPM 01/11/24 09/19/24 01/09/24 History prucalopride 2 mg tablet 2 mg PO DAILY 01/11/24 09/19/24 01/09/24 History (Motegrity) rizatriptan 10 mg tablet 10 mg PO Q2H PRN Headache 01/11/24 09/19/24 Unknown History escitalopram oxalate 10 mg tablet 10 mg PO DAILY anxiety #30 tabs 02/07/24 09/19/24 Unknown Rx (Lexapro) pregabalin 50 mg capsule 50 mg PO TID neuropathy/migraines 04/10/24 09/19/24 Unknown Rx #90 caps hydrocodone 5 mg-acetaminophen 325 1 tab PO Q8H PRN pain #7 tabs 04/29/24 09/19/24 Unknown Rx mg tablet metoclopramide HCl 10 mg tablet 10 mg PO QID #120 tabs 06/22/24 09/19/24 Unknown Rx blood-glucose meter,continuous #1 ea 07/17/24 09/19/24 Unknown Rx (FreeStyle Solo 3 [place]) blood-glucose sensor (FreeStyle #3 ea 07/17/24 09/19/24 Unknown Rx Solo 3 Sensor device) pantoprazole 40 mg tablet,delayed 40 mg PO BID PRN acid reflux #60 08/20/24 09/19/24 Unknown Rx release tabs azithromycin 250 mg tablet See Rx Instructions .Route .COMPLEX 09/19/24 09/19/24 Unknown History linezolid 600 mg tablet 600 mg PO BID #14 tabs 09/19/24 09/19/24 Unknown Rx metronidazole 500 mg tablet 500 mg PO Q8H #21 tabs 09/19/24 09/19/24 Unknown Rx sulfamethoxazole 800 1 tab PO [id number] 09/19/24 09/19/24 Unknown History mg-trimethoprim 160 mg tablet Allergies Allergy/AdvReac Type Severity Reaction Status Date / Time lisinopril Allergy ADR-Cough Verified 09/19/24 10:05 Current Medications Generic Name Dose Route Start Last Admin Trade Name Freq PRN Reason Stop Dose Admin Acetaminophen 650 mg 09/19/24 14:19 09/20/24 05:03 Acetaminophen 325 Mg Tablet PO 650 mg Q6H PRN Administration Mild/Mod Pain Or Temp >/= 101 Atorvastatin Calcium 20 mg 09/19/24 18:00 09/19/24 17:41 Atorvastatin 40 Mg Tablet PO 20 mg QPM ADRIANA Administration Enoxaparin Sodium 40 mg 09/19/24 14:30 09/19/24 14:50 Enoxaparin 40 Mg/0.4 Ml Syringe SUBCUT 40 mg Q24H ADRIANA Administration Insulin Human Regular 100 unit in 100 mls @ 0 mls/hr 09/19/24 12:00 09/20/24 05:13 Myxredlin 100 Unit/100 Ml Bag IV 1 unit/hr PROTOCOL ADRIANA 1 mls/hr Titration Protocol Per Protocol Potassium Chloride/Dextrose/Sod Cl 20 meq in 1,000 mls @ 125 mls/hr 09/19/24 11:57 09/20/24 02:41 D5-Ns 0.45% + Kcl 20 Meq IV 125 mls/hr .Q8H PRN Administration blood glucose less than or equal to 250 mg/dL Sodium Chloride 1,000 mls @ 125 mls/hr 09/19/24 14:15 09/19/24 18:34 Sodium Chloride 0.9% IV 0 mls/hr .Q8H ADRIANA Infusion Piperacillin Sod/Tazobactam 50 mls @ 12.5 mls/hr 09/19/24 20:30 09/20/24 03:58 Sod 3.375 gm/ Sodium Chloride IV 12.5 mls/hr Q8H ADRIANA Administration Vancomycin HCl 1,500 mg in 300 mls @ 200 mls/hr 09/20/24 04:00 09/20/24 05:40 Vancocin IV Infused Q12H ADRIANA Infusion Lamotrigine 200 mg 09/19/24 18:00 09/19/24 17:41 Lamotrigine 100 Mg Tablet PO 200 mg BID ADRIANA Administration Metoclopramide HCl 5 mg 09/19/24 14:19 09/20/24 05:04 Metoclopramide 5 Mg/Ml Sdv 2 Ml IVP 5 mg Q6H PRN Administration NAUSEA AND VOMITING Ondansetron HCl 4 mg 09/19/24 14:19 09/19/24 20:04 Ondansetron 2 Mg/Ml Sdv 2 Ml IVP 4 mg Q8H PRN Administration vomiting, or N/V if npo Pantoprazole Sodium 40 mg 09/19/24 14:30 09/19/24 14:50 Pantoprazole 40 Mg Sdv IVP 40 mg Q24H ADRIANA Administration Pregabalin 50 mg 09/19/24 15:00 09/19/24 20:04 Pregabalin 50 Mg Capsule PO 50 mg TID ADRIANA Administration PFSH Anesthesia Medical History History of abnormal mammogram 02/07/2024 patient reported abnormal mammogram, time for 6-month follow-up Chronic GERD Diabetic retinopathy associated with controlled type 2 diabetes mellitus Anxiety and depression Dyslipidemia associated with type 2 diabetes mellitus Migraines DM II (diabetes mellitus, type II), controlled Gastroparesis Degenerative disc disease History of PCOS HTN (hypertension) with goal to be determined Diabetic neuropathy IBS (irritable bowel syndrome) Broken nose Fatty liver Surgical History History of cholecystectomy Family History Father Diabetes Mother Diabetes Fatty liver Social History Smoking and tobacco/nicotine status: former use of tobacco/nicotine Quit status (tobacco/nicotine): has quit using Alcohol intake: former Substance/Drug Use: never Data Anesthesia 09/19/24 10:51 09/20/24 02:53 Short CBC 09/19/24 Range/Units 10:51 WBC 13.48 H (3.29-11.43) 10^3/uL Hgb 11.50 (11.27-16.99) g/dL Hct 36.0 (36-47) % MCV 84.7 L (85-98) fl Plt Count 177 (157-399) 10^3/cmm Neut % (Auto) 88.6 % Neut # (Auto) 11.93 H (1.8-7.7) 10^3/uL BMP 09/19/24 09/19/24 09/19/24 10:51 15:09 20:15 Sodium 129 L 132 L 133 L Potassium 4.5 3.8 4.2 Chloride 93 L 99 104 Carbon Dioxide 11 L 14 L 16 L BUN 9 9 8 Creatinine 0.9 0.8 0.6 Glucose 403 H 301 H 221 H Calcium 9.5 9.3 8.8 09/19/24 09/20/24 23:37 02:53 Sodium 132 L 134 L Potassium 4.1 4.3 Chloride 102 103 Carbon Dioxide 16 L 17 L BUN 8 7 Creatinine 0.6 0.6 Glucose 214 H 180 H Calcium 8.9 9.1 Cardiac Enzymes 09/19/24 09/19/24 09/19/24 Range/Units 10:51 12:58 17:30 Troponin T Baseline < 6 (0-10) ng/L Troponin T 120 Minute 6.00 (0-10) ng/L Delta Troponin T 0.65929 (0-10) ABS# Troponin T Hi Sens 6Hr 6.00 (0-10) ng/L Troponin T Hi Sens 6Hr Delta 0.85743 (0-12) ng/L NT-Pro-B Natriuret Pep 85 (0-125) pg/mL Liver Function 09/19/24 Range/Units 10:51 Total Bilirubin 1.0 (0.15-1.2) mg/dL AST 8 (0-32) U/L ALT 6 (0-33) U/L Alkaline Phosphatase 111 H (35-105) U/L Albumin 3.8 (3.5-5.2) g/dL Coags 09/19/24 10:51 ESR 79 H PT 15.00 H INR 1.10 D-Dimer 1.39 H C-Reactive Protein 452.8 H ABG 09/19/24 10:28 Specimen Type Arterial Sample Site Radial, right ABG pH 7.33 L ABG pCO2 17.5 L* ABG pO2 97.0 ABG PO2/FiO2 Ratio 461 ABG HCO3 9.1 L ABG O2 Saturation 98.3 ABG Base Excess -14.7 L A-a O2 Gradient 4.0 L O2 Delivery Device Room air FiO2 21.0 Microbiology 09/19/24 13:48 Gram Stain - Final Tissue 09/19/24 11:05 Blood Culture - Preliminary Blood SPECIMEN COLLECTED 09/19/24 10:51 Blood Culture - Preliminary Blood SPECIMEN COLLECTED Cardiac Studies: 2 No Data to Display
--- NOTE | 2024-09-20 06:52 | W.PM.OPSUD ---
Surgery/Procedure H&P Update DATE OF PROCEDURE: September 20, 2024 DATE H&P PERFORMED: 09/19/24 H&P UPDATE INFORMATION: I have reviewed H&P completed within last 30 days, I have examined patient prior to procedure, No changes to prior documentation and H&P is in [facility] EMR on date indicated PLANNED PROCEDURE: Operation Date: 09/20/24 07:00 Proposed Procedures p Incision And Drainage(Left) - Moise Sanchez DPM
[2024-09-20] MEDS: BUPivacaine 0.5% INJ 30 mL INJECTION (07:20)
[2024-09-20 07:22] LABS: Glucose Point of Care 211 mg/dL (70-110)
--- NOTE | 2024-09-20 07:40 | P.BOP_ITS ---
Date of procedure: 09/20/2024 Surgeon name: Marco DuronPJarvis Information Technology Specialist(s) name(s): Yola Procedure(s) performed: Incision and drainage left foot multiple sites Description of findings: Significant necrotic tissue enveloping entire fifth ray Estimated blood loss: 10 cc Tourniquet time: No tourniquet used Specimen(s) removed: None Post-operative diagnosis: Gas gangrene left foot
[2024-09-20 07:41] LABS: Bilirubin Urine Negative (Negative); Blood Urine Negative (Negative); Glucose Urine UA 3+ (Normal); Ketones Urine 2+ (Negative); Leukocyte Esterase Urine Negative (Negative); Nitrate Urine Negative (Negative); Protein Urine 1+ (Negative); Urine Appearance Clear (CLEAR); Urine Color Yellow (Yellow); pH Urine 5.5 (5-7)
--- NOTE | 2024-09-20 07:41 | PM.OP ---
Operative Report Date of procedure: September 20, 2024 Pre-op diagnosis: Left foot gas gangrene Post-op diagnosis: Same Post-op findings: Liquefactive necrosis enveloping left fifth metatarsal circumferentially. No abscess appreciated intraoperatively. Tracking proximally within fourth intermetatarsal space Procedure done: Incision drainage left foot multiple areas CPT 83473 Surgeon: Moise Sanchez DPM Aircraft Structural Repairer: Yola Estimated blood loss: 10 cc No tourniquet used Complications: None Findings: See above Procedure: The patient presents with a severe foot infection involving left foot, characterized by erythema, swelling, and drainage. The infection is complicated by underlying conditions, including diabetes, which have contributed to the progression of the infection despite conservative management. Preoperative imaging and laboratory results indicate left foot diabetic foot infection with gas gangrene, necessitating surgical intervention. The planned procedure is intended to address the infection, debride necrotic tissue, and, if necessary, assess the viability of surrounding structures to prevent further complications. The patient has been NPO. The history has been reviewed and the history and physical is current. The signed consent was confirmed and placed in the patient chart. Patient imaging has been reviewed and is consistent with the diagnosis. Under mild sedation, the patient was brought into the operating room and left on the gurney in the supine position. Patient is receiving antibiotics around the clock on the floor, Therefore, additional antibiotic prophylaxix was not administered. General sedation was then performed by the anesthesiateam. A local field block was performed using 0.5% Marcaine plain. The operative extremity was then prepped and draped in the usual fashion. After prep, the following procedure was then performed. Attention was directed to the plantar aspect of the left foot where a full-thickness ulceration below the fifth metatarsal head was noted. Dark, stranding necrotic tissue at base of wound was noted. A Piedmont elevator was inserted into the wound and was noted to probe into the fourth intermetatarsal space towards the dorsum of the foot. A #15 blade was used to make a full-thickness incision in the fourth webspace plantarly to the ulceration. This was opened up to expose a significant amount of randall fibrotic tissue manifesting as liquefactive necrosis which was noted to be malodorous. #15 blade was used to further open the affected area by extending laterally along the lateral aspect of the fifth metatarsal neck. The Piedmont was then used to assess the depth of infection and the fourth intermetatarsal space. This was noted to track proximally to approximately care home down the shaft of the fifth metatarsal. A second stab incision was made on the dorsum of the left foot using #15 blade at the level of the base of the fifth metatarsal. Combination of 15 blade and rongeur was used to remove exposed necrotic tissue. Necrotic tissue was noted to envelop the fifth metatarsal circumferentially. Care was taken to remove devitalized tissue while sparing adjacent neurovascular structures and tendons. The flexor tendon to the fifth digit was noted to have involvement and showed necrotic changes. This was excised using a #15 blade. The foot was expressed at this point and no purulence was visualized. Pulse lavage was used to irrigate the area using 3 L of sterile saline. After irrigation, again, the foot was expressed and no residual purulence was visualized. No abscess was appreciated. The wound was packed with Betadine soaked 4 x 4 gauze before being dressed with dry 4 x 4 gauze, Kerlix, Tank bandage. The patient tolerated the procedure and anesthesia well and without complication. The patient was transported from the operating room to the recovery room with vital signs stable and vascular status intact to all digits of the left foot. Thepatient was instructed to remain nonweightbearing to the operative extremity, to keep surgical dressing clean, dry and intact. The patient will be transferred back to the floor once anesthesia criteria is met. I will continue to round on and follow the patient in the inpatientsetting and provide recommendations to stabilize the patient for discharge. Based on intraoperative findings patient will need a return to the operating room for further debridement versus fifth ray resection in coming days. This will be communicated to the hospitalist.
[2024-09-20 07:43] LABS: Add Urine Microscopic? YES
--- NOTE | 2024-09-20 08:00 | ANE.PACU2 ---
Inpatient post-anesthesia follow up: Airway intact: Yes Vital signs: Temperature 102.5 F Pulse Rate 115 Respiratory Rate 16 Blood Pressure 105/66 Pulse Oximetry 99 Oxygen Delivery Me thod Room Air Oxygen Flow Rate 5 Fraction of Inspir ed Oxygen Hydration adequate: Yes Nausea and vomiting: No Pain level: 1 Mental status: Baseline
[2024-09-20 08:12] LABS: Glucose Point of Care 237 mg/dL (70-110)
[2024-09-20 08:15] LABS: UA Manual Slide Review YES; UA Slide Review UA Slide Review Perf
[2024-09-20 08:16] LABS: Bacteria Urine TRACE /hpf; RBC Urine 0-4 /hpf (0-2); Squamous Epithelial Cell Urine 0-4 /hpf (0-5); WBC Urine 0-4 /hpf (0-5)
[2024-09-20 08:17] LABS: Add Urine Culture? Yes
[2024-09-20] MEDS: clindamycin 600 MG/50 ML PREMIX 100 MG IV ×2 (08:42→16:02)
[2024-09-20] MEDS: aspirin 81 mg EC Tablet PO (08:43)
[2024-09-20] MEDS: lamoTRIgine 100 mg Tablet 200 MG PO ×2 (08:43→17:29)
[2024-09-20] MEDS: pregabalin 50 mg Capsule PO ×3 (08:43→20:15)
[2024-09-20] MEDS: losartan 50 mg Tablet PO (08:43)
[2024-09-20] MEDS: escitalopram 10 mg Tablet PO (08:43)
[2024-09-20 09:38] LABS: Glucose Point of Care 233 mg/dL (70-110)
[2024-09-20 09:51] LABS: Anion Gap 16.4 (5-19); Blood Urea Nitrogen 7 mg/dL (6-20); Calcium 8.6 mg/dL (8.5-10.5); Carbon Dioxide 14 mmol/L (22-29); Chloride 105 mmol/L (98-107); Creatinine Clr Calc Pharmacy 144.3722; Glomerular Filtration Rate 109.1 mL/min (90-130); Glucose 245 mg/dL (65-115); Magnesium 1.7 mg/dL (1.7-2.3); Osmolality Calculated 278 mOsm/kg (285-295); Phosphorus 1.3 mg/dL (2.5-4.5); Potassium 4.4 mmol/L (3.5-5.1); Sodium 131 mmol/L (136-145)
[2024-09-20 10:25] LABS: Glucose Point of Care 249 mg/dL (70-110)
[2024-09-20 11:17] LABS: Glucose Point of Care 242 mg/dL (70-110)
[2024-09-20 11:34] LABS: Anion Gap 18.2 (5-19); Blood Urea Nitrogen 6 mg/dL (6-20); Calcium 8.7 mg/dL (8.5-10.5); Carbon Dioxide 16 mmol/L (22-29); Chloride 99 mmol/L (98-107); Creatinine Clr Calc Pharmacy 123.7476; Glomerular Filtration Rate 91.3 mL/min (90-130); Glucose 244 mg/dL (65-115); Magnesium 1.6 mg/dL (1.7-2.3); Osmolality Calculated 274 mOsm/kg (285-295); Phosphorus 1.1 mg/dL (2.5-4.5); Potassium 4.2 mmol/L (3.5-5.1); Sodium 129 mmol/L (136-145)
--- NOTE | 2024-09-20 11:56 | XRR_ITS ---
PROCEDURE INFORMATION: Exam: XR Left Foot Exam date and time: 09/20/2024 12:25 PM Age: 43 years old Clinical indication: Pain; Prior surgery; Surgery date: Post-operative (0-2 days); Surgery type: Left foot/ankle; Additional info: Postop TECHNIQUE: Imaging protocol: Radiologic exam of the left foot. Views: 3 or more views. COMPARISON: MR foot LT wo con* [id number] 09/19/2024 4:35 PM FINDINGS: Bones/joints: No acute fracture or dislocation. Soft tissues: Recent postprocedural changes about the base of the 5th digit, with soft tissue swelling, and with probable subcutaneous air. This appears somewhat obscured by overlying bandaging. XR/XR foot LT min 3V* [id number] IMPRESSION: Recent postprocedural changes about the base of the 5th digit, with soft tissue swelling, and with probable subcutaneous air. This appears somewhat obscured by overlying bandaging.
--- NOTE | 2024-09-20 11:56 | XRR_ITS ---
PROCEDURE INFORMATION: Exam: XR Left Ankle Exam date and time: 09/20/2024 12:20 PM Age: 43 years old Clinical indication: Pain; Prior surgery; Surgery date: 1-6 months; Surgery type: Left ankle; Additional info: Post op, evaluate for residual soft tissue gas TECHNIQUE: Imaging protocol: Radiologic exam of the left ankle. Views: 1 or 2 views. COMPARISON: MR foot LT wo con* [id number] 09/19/2024 4:35 PM FINDINGS: Bones/joints: No acute fracture or dislocation. Soft tissues: Visualized soft tissues are otherwise within normal limits. No evidence of subcutaneous air. Vasculature: Vascular calcific disease. XR/XR ankle LT 2V [id number] IMPRESSION: Visualized soft tissues are otherwise within normal limits. No evidence of subcutaneous air.
[2024-09-20 12:25] LABS: ABG PCO2 24.6 mmHg (35-45); Alveolar-Arterial Oxygen Gradi 6.3 mmHg (5-10); Arterial Blood Gas Hematocrit 28.1 % (37-47); Base Excess ABG -8.5 mmol/L (-2.0-2.0); Blood Gas Operator Identificat GD; Blood Gas Sample Site Brachial, left; Blood Gas Sample Type Arterial; Carboxyhemoglobin 1.5 %THgb (0.4-20.1); HCO3 ABG 15.1 mmol/L (22-26); HGB O2 Sat 94.3 % (95-100); Ionized Calcium Level - ABG 1.2 mmol/L (1.1-1.4); Oxygen Device NC; Oxygen Saturation ABG 96.7; PO2 ABG 70.4 mmHg (80.0-100.0); Total Hemoglobin 9.2 g/dL (12-16)
--- NOTE | 2024-09-20 12:31 | ECG_ITS ---
[facility] Date: 2024[facility]20 Pat Name: Madison Moya Department: Room: [facility] Gender: Female Start Up Specialist: : 1980 Requested By: Jerod Gustafson Order Number: [id number] Sd MD: ANETTE FARFAN Measurements Intervals [place] Rate: 120 P: 51 UT: 170 QRS: 18 QRSD: 85 T: 60 QT: 298 QTc: 421 Interpretive Statements SINUS TACHYCARDIA ABNORMAL RHYTHM ECG Compared to ECG 09/19/2024 17:24:57 Sinus rhythm no longer present Electronically Signed On 09-21-2024 23:23:37 MUCKING MACHINE OPERATOR by ANETTE FARFAN [id number]
[2024-09-20] MEDS: ibuprofen 200 mg Tablet 600 MG PO (12:35)
[2024-09-20 12:48] LABS: Glucose Point of Care 303 mg/dL (70-110)
[2024-09-20 13:03] LABS: Creatine Phosphokinase 127 U/L (26-192)
--- NOTE | 2024-09-20 13:04 | PHA.VACGOAL ---
Vancomycin Goal - Goal Vancomycin Goal:: 10-15 mg/L Vancomycin Indication:: Other - Therapy Day of therpy:: Day []of [] . Actual body weight (kg): 198 lb - Data Labs: WBC 13.48 10^3/uL (3.29-11.43) H 09/19/24 10:51 RBC 4.25 10^6/uL (3.85-5.65) 09/19/24 10:51 Hgb 11.50 g/dL (11.27-16.99) 09/19/24 10:51 Hct 36.0 % (36-47) 09/19/24 10:51 MCV 84.7 fl (85-98) L 09/19/24 10:51 MCH 27.1 pg (27-33) 09/19/24 10:51 MCHC 31.9 g/dL (30-55) 09/19/24 10:51 RDW 13.9 % (12.1-15.1) 09/19/24 10:51 Sodium 129 mmol/L (136-145) L 09/20/24 11:10 Potassium 4.2 mmol/L (3.5-5.1) 09/20/24 11:10 Chloride 99 mmol/L (98-107) 09/20/24 11:10 Carbon Dioxide 16 mmol/L (22-29) L 09/20/24 11:10 Anion Gap 18.2 (5-19) 09/20/24 11:10 BUN 6 mg/dL (6-20) 09/20/24 11:10 Creatinine 0.7 mg/dL (0.5-0.9) 09/20/24 11:10 GFR Calculation 91.3 mL/min (90-130) 09/20/24 11:10 Treatment plan:: continue Regimen:: TROUGH 09/21 @ 1500
--- NOTE | 2024-09-20 13:10 | PC.NURSE ---
Patient had a fever of 104.5. Dr. Gustafson was contacted and he was worried that patient was going into malignant hyperthermia due to the side effect of Succinylcholine that the patient recieved in surgery. He ordered for a DIC panel, EKG, CPK, ABG to be taken. He also ordered to give 600 mg of ibuprofen. Patient is resting in bed.
[2024-09-20] MEDS: enoxaparin 40 mg/0.4 mL Syringe SUBCUT (13:41)
[2024-09-20] MEDS: pantoprazole 40 mg SDV IVP (13:41)
[2024-09-20] MEDS: acetaminophen 1,000 MG/100 ML PIGGYBACK 400 MG IV (13:42)
[2024-09-20] MEDS: sodium bicarbonate 8.4% 1 mEq/mL 50mL Syr 50 MEQ IVP (13:42)
[2024-09-20 13:44] LABS: Reflex FDPQ test REFLEX FDP QUEST TES
[2024-09-20 13:58] LABS: Glucose Point of Care 233 mg/dL (70-110)
[2024-09-20 14:03] LABS: INR 1.11 (0.8-1.2)
[2024-09-20 14:04] LABS: Fibrinogen 864 mg/dL (174-498); Partial Thromboplastin Time 35.2 SECONDS (23.9-36.7)
[2024-09-20 14:07] LABS: Anion Gap 17.8 (5-19); Blood Urea Nitrogen 5 mg/dL (6-20); Calcium 8.6 mg/dL (8.5-10.5); Carbon Dioxide 15 mmol/L (22-29); Chloride 99 mmol/L (98-107); Creatinine Clr Calc Pharmacy 123.7476; Glomerular Filtration Rate 91.3 mL/min (90-130); Glucose 244 mg/dL (65-115); Magnesium 1.6 mg/dL (1.7-2.3); Osmolality Calculated 271 mOsm/kg (285-295); Potassium 3.8 mmol/L (3.5-5.1); Sodium 128 mmol/L (136-145)
[2024-09-20 14:08] LABS: Lactic Sepsis W/Reflex 1.7 mmol/L (0.5-2.2)
[2024-09-20 14:12] LABS: Phosphorus 0.8 mg/dL (2.5-4.5)
--- NOTE | 2024-09-20 14:18 | P.PN_ITS ---
Subjective 2 Subjective: I was consulted by the hospitalist to reevaluate patient following anesthesia for concern of possible MH type picture. Patient was taken to the OR this a.m. around 0700 for I&D of the foot/ankle. This a.m. around 5 AM patient was running a 102.5 ?F temp. Patient was given Tylenol which helped bring temperature down. Immediately postop patient's temp was 99.6 ?F. Per nursing staff in the ICU, patient was having some muscle shaking and jitteriness immediately postop during the recovery period. Patient's temperature recently increased to 103.9 ?F. I went to evaluate patient, she denies any muscle cramps, chest tightness, shortness of breath. She does admit to feeling pretty fatigued and states she does not feel well. ABG performed which shows improved acidosis, pH 7.4. pCO2 improved to 24.6. K+ 3.8 At this time I do not feel like this fits the picture of MH. Patient has had a prior anesthetic without issues. She does not show any signs of muscle rigidity, chest tightness or shortness of breath. Patient was febrile prior to anesthesia and I believe patient's temperature is more a result of infection. We will continue to follow closely. Appreciate consultation, please reach out if there is any further concerns Vitals/I&O/Wt Last Vital Signs Temp 103.9 F H 09/20/24 13:00 Pulse 112 H 09/20/24 13:00 Resp 22 H 09/20/24 13:00 BP 105/58 09/20/24 13:00 Pulse Ox 95 09/20/24 13:00 O2 Del Method Room Air 09/20/24 13:00 O2 Flow Rate 5 09/20/24 08:29 09/19/24 09/20/24 09/20/24 22:59 06:59 14:59 Intake Total 1286.550 / 2586.550 1390.800 / 3977.350 1360.500 / 1360.500 Output Total 700 / 700 900 / 1600 10 Balance 586.550 / 1886.550 490.800 / 2377.350 1350.500 / 1350.500 Weight last 48 hrs Weight 198 lb Weight 198 lb 6.656 oz Weight 200 lb Physical Exam 2 Const: COMMON NORMALS: alert Resp: COMMON NORMALS: clear to auscultation bilaterally AUSCULTATION: clear to auscultation bilaterally Neuro: SENSORIUM/ORIENTATION: Yes alert Data 09/19/24 10:51 09/20/24 13:31 Micro: Microbiology 09/19/24 11:05 Blood Culture - Preliminary Blood NEGATIVE TO DATE 09/19/24 10:51 Blood Culture - Preliminary Blood NEGATIVE TO DATE 09/19/24 13:48 Gram Stain - Final Tissue A&P Assessment and plan (1) Diabetic ulcer of left foot: (2) Sepsis: (3) Gas gangrene: Plan -Chronic ulceration left foot fifth metatarsal head region, gas gangrene, cellulitis, producing sepsis -Labs and vitals reviewed -WBC 13.48 -ESR 79 -CRP 452.8 -HR 141 -RR 19 -Tmax 100.1 -Cultures blood?NGTD; wound?pending -Abx Vanco/Zosyn -Diet: N.p.o. -Patient underwent bedside debridement in the emergency department to stabilize foot wound. See general procedure note for details -Patient will be taken to the OR tomorrow morning 09/20/2024 for incision and drainage left foot. MRI to be ordered in preparation for surgery. -Pain Mgmt: Per primary team -Weight bearing: To left foot for transfers only -Dressings: Betadine wet-to-dry dressing applied by podiatry in the emergency department. Leave clean, dry, intact until surgery tomorrow morning -Continue current Abx therapy until ID and Sensitivity results -Trend labs -Discharge plan: To be determined -Podiatry will continue to round on patient daily and provide recommendations Attestations 2 Medical Necessity Statement*: Osteomyelitis Coding Level of Care Code Acute Code for [facility] Diagnoses Diabetic ulcer of left foot E11.621; L97.529 Sepsis A41.9 Gas gangrene A48.0
[2024-09-20 14:48] LABS: Glucose Point of Care 205 mg/dL (70-110)
[2024-09-20] MEDS: sodium chloride 0.9% 1,000 ML 999 ML IV (15:03)
[2024-09-20 15:34] LABS: Adenovirus Not Detected (NOT DETECT); Chlamydia Pneumoniae Not Detected (NOT DETECT); Coronavirus 229E,HKU1,NL63,OC4 Not Detected (NOT DETECT); Human Metapneumovirus Not Detected (NOT DETECT); Human Rhinovirus/Enterovirus Detected (NOT DETECT); Influenza A Not Detected (NOT DETECT); Influenza A H1 Not Detected (NOT DETECT); Influenza A H1-2009 Not Detected (NOT DETECT); Influenza A H3 Not Detected (NOT DETECT); Influenza B Not Detected (NOT DETECT); Mycoplasma Pneumoniae Not Detected (NOT DETECT); Parainfluenza Virus Type 1 Not Detected (NOT DETECT); Parainfluenza Virus Type 2 Not Detected (NOT DETECT); Parainfluenza Virus Type 3 Not Detected (NOT DETECT); Parainfluenza Virus Type 4 Not Detected (NOT DETECT); Respiratory Syncytial Virus A Not Detected (NOT DETECT); Respiratory Syncytial Virus B Not Detected (NOT DETECT); SARS-COV-2 Not Detected (NOT DETECT)
[2024-09-20] MEDS: sodium bicarbonate 50 MEQ in sodium chloride 0.45% 1,000 ML 125 MEQ IV (16:06)
[2024-09-20] MEDS: potassium phosphate (mEq K) 40 MEQ in sodium chloride 0.9% (100 ml) 100 ML 27.25 MEQ IV (16:06)
[2024-09-20] MEDS: meropenem 1,000 mg SDV 1000 MG IVP (16:06)
[2024-09-20] MEDS: norepinephrine 4 MG/250 ML BAG 30 MG IV (16:11)
[2024-09-20 16:19] LABS: Troponin(5th) Baseline 7 ng/L (0-10)
--- NOTE | 2024-09-20 16:25 | P.PN_ITS ---
Subjective 2 Subjective: Patient was seen in the morning, and into the afternoon -Early in the morning she was seen posto peratively, she had a fever at 5 AM, -Currently postoperatively she feels bet ter, no nausea, no vomiting, no headache, blurry vision, her nausea is more under control she is hungry discussed that she is still on insulin drip, still in DKA her anion gap is still prolonged, blood sugars in the 200s to 300s, -group work program aide patient had a fever up to 104.5, had received Tylenol, 30 minutes thereafter continue to be febrile, given cooling packs, given 600 mg of p.o. Motrin -Differential for fevers was sepsis, inf ection, or possibly malignant hyperthermia as patient did receive succinylcholine/propofol/Versed/fentanyl for her procedure -Repeat ABG does not show hypercarbia, p H within normal limits CPK within normal limits she is tachycardic but this could be from the fever no muscle rigidity, alert oriented x 3, no muscle spasms fairly unlikely to be malignant hyperthermia nonetheless continue to monitor, spoke to anesthesia -Patient's fever was improved to 102.9, given a gram of IV Tylenol -Anion gap remains 17.8, potassium 3.8 w ith phosphorus 0.8 will replace, insulin drip increased to 3, continue to monitor -Antibiotic coverage broadened from Zosy n to meropenem, clindamycin was added early in the morning -Patient's blood pressures were soft thi s afternoon, MAP around 65 was given a liter of fluid lactic acid within normal limits, denied any chest pain, no palpitations, no shortness of breath her heart rates have improved, temperature has improved to 98 -Patient's MAP is 60-65 after liter flui d she had D5 half-normal saline also running at 125 cc an hour -Order placed for PICC line -Order placed for Levophed -Patient has septic shock -Ordered repeat blood cultures, respirat ory viral panel she is positive for rhinovirus -Rhinovirus could be a source of her fev ers, viral infection -Patient was seen in the ICU she is aler t oriented x 3, following all commands, she has good DP PT pulses mild mottling of bilateral extremities, cap refill greater than 2 seconds, denies any chest pain, shortness of breath, no abdominal pain, no nausea, no vomiting, she is hungry she is tired she tells me, -Currently she is on 6 of Levophed blood pressure is 120/70, heart rates in the 60s normal sinus rhythm she is on room air she is comfortable she her respiratory to 15, temperature 99.9 -Discussed doing a leal CT chest abdomen pelvis to make sure were not missing any other source of infection -Discussed with patient in detail, I fee l that malignant hyperthermia is fairly likely as she had fever before her surgery, and her laboratory workup is not really indicating any significant evidence of malignant hyperthermia but will continue to monitor closely in the ICU monitor, monitor her temperature she is down to 98.9 which is positive, heart rates are better but she is requiring Levophed which will require further workup. Lactic is within normal limits she denies any chest pain, no shortness of breath D-dimer was elevated so I am to do a CT angiogram of her chest she did have nausea yesterday some nausea this morning we will do also CAT scan of her belly -Will continue IV antibiotics -Septic shock continue broad-spectrum IV antibiotics -Keep on bedrest -Will monitor her closely -She voiced understanding, all questions answered Vitals/I&O/Wt Last Vital Signs Temp 98.9 F 09/20/24 14:30 Pulse 80 09/20/24 14:30 Resp 18 09/20/24 14:30 BP 80/48 09/20/24 14:30 Pulse Ox 96 09/20/24 14:30 O2 Del Method Room Air 09/20/24 14:30 O2 Flow Rate 5 09/20/24 08:29 09/20/24 09/20/24 09/20/24 06:59 14:59 22:59 Intake Total 1390.800 / 3977.350 1462.750 / 1462.750 53 / 1515.750 Output Total 900 / 1600 10 / 10 Balance 490.800 / 2377.350 1452.750 / 1452.750 53 / 1505.750 Weight last 48 hrs Weight 89.811 kg Weight 90 kg Weight 90.718 kg Physical Exam 2 Const: COMMON NORMALS: no acute distress and patient oriented x3 Eye: COMMON NORMALS: Equal, round and reactive pupils present and EOMs intact bilaterally PUPIL: Yes Equal, round and reactive pupils present Resp: COMMON NORMALS: normal respiratory effort, No retractions, No use of accessory muscles and clear to auscultation bilaterally AUSCULTATION: clear to auscultation bilaterally Cardio: COMMON NORMALS: regular rate, regular rhythm, S1 normal heart sound present and S2 normal heart sound present RATE: regular rate RHYTHM: r egular rhythm HEART SOUNDS: S1 normal heart sound present and S2 normal heart sound present GI: COMMON NORMALS: Normal to inspection, nondistended, normoactive bowel sounds present and non-tender Extremity: COMMON NORMALS: no pedal edema NARRATIVE EXTREMITY EXAM: DP PT pulses palpable, Neuro: COMMON NORMALS: patient oriented x3, CN's II-XII intact bilaterally and moves all extremities Psych: COMMON NORMALS: mental status grossly normal Sepsis: Is patient septic: Yes Focused sepsis exam performed: Yes F ocused sepsis exam: DP PT pulses palpable, cap refill greater than 2 seconds, mild mottling bilateral extremity left lower extremity wrapped Date exam was performed: 09/20/24 Time exam was performed: 15:00 Data 09/19/24 10:51 09/20/24 13:31 Micro: Microbiology 09/20/24 14:40 Blood Culture - Preliminary Blood SPECIMEN COLLECTED 09/20/24 13:31 Blood Culture - Preliminary Blood SPECIMEN COLLECTED 09/19/24 11:05 Blood Culture - Preliminary Blood NEGATIVE TO DATE 09/19/24 10:51 Blood Culture - Preliminary Blood NEGATIVE TO DATE 09/19/24 13:48 Gram Stain - Final Tissue A&P Assessment and plan (1) Diabetic ketoacidosis: (2) Diabetic ulcer of left foot: (3) Sepsis: (4) Septic shock: (5) DM II (diabetes mellitus, type II), controlled: Qualifiers: Diabetes mellitus complication status: with unspecified complications D iabetes mellitus superintendent marine oil terminal insulin use: with alf use Qualified Code(s): E 11.8 - Type 2 diabetes mellitus with unspecified complications; Z79.4 - buttermaker continuous churn (current) use of insulin (6) Rhinovirus: Plan Diabetic ketoacidosis -Anion gap passing close currently 18, pH 7.4, bicarb 15-16, blood sugars 200s to 300s Plan -Monitor in ICU -Keep n.p.o. -DKA protocol -Every hour blood sugars -BMP every 4 hours -Insulin drip -Due to metabolic acidosis, started on bicarb drip -Once anion gap closes, less than 16, switch to subcu insulin and Lantus Left foot diabetic ulcer -ESR 79, CRP 452 MRI foot - MR/MR foot LT wo con* [id number] IMPRESSION: 1. Findings suspicious for early septic 5th metatarsophalangeal joint. No evidence of osteomyelitis or abscess at this time. 2. Soft tissue air in the lateral forefoot suggestive of infection with a gas-forming organism. -Vancomycin -Zosyn broadened to meropenem -Clindamycin added -Follow blood cultures -Follow tissue cultures -Status post surgical debridement by Dr. Magdaleno this morning postoperative day 0 -Podiatry consulted Sepsis with septic shock -Sepsis features met given elevated lactic acid, 11 CRP, Pro-Junior, tachycardia, tachypnea, source of infection to his left foot -Currently on Levophed -PICC line order placed Complaints of chest pain and shortness of breath -D-dimer elevated 1.4 CT angiogram of the chest -Troponin series EKG series no significant delta troponin -Venous ultrasound no DVT Abdominal pain complaints, nausea, vomiting -CT scan abdomen pelvis Febrile episodes -Likely secondary diabetic foot infection as above -She is on Lamictal, escitalopram fairly unlikely for her to be serotonin syndrome -Malignant hyperthermia also felt to be unlikely as CPK is within normal limits, pH within normal limits, pCO2 within normal limits, no muscle rigidity, no muscle spasms, fever has broken -Repeat blood cultures -He is positive for rhinovirus, possibly viral illness playing a role to febrile episodes Rhinovirus -Isolation precautions Type 2 diabetes mellitus Full code Lovenox for DVT prophylaxis Protonix for GI prophylaxis Attestations 2 Medical Necessity Statement*: Patient requires hospitalization for septic shock, sepsis, left foot diabetic infection, diabetic ketoacidosis, chest pain, shortness of breath, abdominal pain, febrile episodes, rhinovirus Coding Level of Care Code Critical Care >/= 30 minutes Critical care time (in minutes): 45 The high probability of a clinically significant, sudden or life threatening deterioration, as referenced in this documentation, required my full and direct attention, intervention and personal management. The critical care time shown is in addition to time spent performing any reported separately billable procedures and includes the following: [x] Data and vital sign review and interpretation [x ] Patient assessment, examination and intervention [x] Medication orders and management [x] Patient/Family updates as able [x] Care Coordination and Documentation. Diagnoses Diabetic ketoacidosis E11.10 Diabetic ulcer of left foot E11.621; L97.529 Sepsis A41.9 Septic shock A41.9; R65.21 Controlled type 2 diabetes mellitus with complication, with long-term current use of insulin E11.8; Z79.4 Diabetes mellitus complication status: with unspecified complications Diabetes mellitus alf insulin use: with superintendent marine oil terminal use Rhinovirus B34.8
--- NOTE | 2024-09-20 16:50 | ECG_ITS ---
[facility] Date: 2024-09-20 Pat Name: Madison Moya Department: Room: [facility] Gender: Female Compensation Vice President: : 1980 Requested By: Jerod Gustafson Order Number: [id number] Reading MD: ANETTE FARFAN Measurements Intervals [place] Rate: 60 P: 0 CO: 0 QRS: 24 QRSD: 75 T: 36 QT: 400 QTc: 402 Interpretive Statements SUPRAVENTRICULAR RHYTHM ABNORMAL RHYTHM ECG Compared to ECG 09/20/2024 12:31:38 Supraventricular rhythm now present Sinus tachycardia no longer present Electronically Signed On 09-21-2024 23:23:19 ENGINE WIPER by ANETTE FARFAN [id number]
[2024-09-20 17:11] LABS: Glucose Point of Care 154 mg/dL (70-110)
[2024-09-20] MEDS: atorvastatin 40 mg Tablet 20 MG PO (17:28)
--- NOTE | 2024-09-20 17:28 | XRR_ITS ---
PROCEDURE INFORMATION: Exam: XR Chest Exam date and time: 09/20/2024 6:23 PM Age: 43 years old Clinical indication: Device placement; Picc; Additional info: Post picc insertion, anton placing picc in icu 1. Should be ready at 1815 TECHNIQUE: Imaging protocol: Radiologic exam of the chest. Views: 1 view. COMPARISON: CR XR chest 1V portable [id number] 09/19/2024 1:18 PM FINDINGS: Tubes, catheters and devices: Right PICC line terminates at the cavoatrial junction. Lungs: No consolidation. Pleural spaces: No pleural effusion. No pneumothorax. Heart/Mediastinum: No cardiomegaly. Bones/joints: Unremarkable. XR/XR chest 1V portable [id number] IMPRESSION: Right PICC line in proper positioning.
[2024-09-20 18:09] LABS: Glucose Point of Care 187 mg/dL (70-110)
[2024-09-20 18:09] LABS: Glucose Point of Care 173 mg/dL (70-110)
[2024-09-20 19:01] LABS: Glucose Point of Care 180 mg/dL (70-110)
--- NOTE | 2024-09-20 19:04 | PICC.NOTE ---
Double lumen PICC placed to right basilic vein. Referred to vascular access nurse for PICC placement due to multiple IV medications including vasopressors. Risks and benefits discussed and informed consent obtained from pt. Right arm assessed with right basilic vein measuring 3.0 mm, straight, and apparent best choice for placement. Using sterile technique and MST, right basilic vein accessed x 1 stick. Mid-arm circumference measured 10 cm from right AC 31 cm. Trimmed cath 38 cm with 0 cm external length noted. CXR shows tip to appear to be in the distal SVC. Awaiting radiologist to read. Line secured with stat-lock. Insertion site covered with Secureport IV and TSM. Report given to bedside nurse, Dale, RN.
[2024-09-20 19:48] LABS: Anion Gap 15.2 (5-19); Blood Urea Nitrogen 6 mg/dL (6-20); Calcium 7.7 mg/dL (8.5-10.5); Carbon Dioxide 16 mmol/L (22-29); Chloride 107 mmol/L (98-107); Creatinine Clr Calc Pharmacy 173.2467; Glomerular Filtration Rate 134.7 mL/min (90-130); Glucose 202 mg/dL (65-115); Magnesium 1.6 mg/dL (1.7-2.3); Osmolality Calculated 281 mOsm/kg (285-295); Phosphorus 3.5 mg/dL (2.5-4.5); Potassium 4.2 mmol/L (3.5-5.1); Sodium 134 mmol/L (136-145)
[2024-09-20] MEDS: magnesium sulfate premix 2 GM/50 ML PIGGYBACK IV (20:15)
[2024-09-20 20:32] LABS: Glucose Point of Care 224 mg/dL (70-110)
[2024-09-20 21:13] LABS: Glucose Point of Care 232 mg/dL (70-110)
[2024-09-20 23:01] LABS: Glucose Point of Care 230 mg/dL (70-110)
[2024-09-20 23:07] LABS: Glucose Point of Care 243 mg/dL (70-110)
--- NOTE | 2024-09-20 23:19 | PC.NURSE ---
Patient offered assistance to brush teeth, and wash up. Refused at this time, towels and wash rags at bedside per patient request.
[2024-09-20 23:27] LABS: Magnesium 2.1 mg/dL (1.7-2.3); Phosphorus 2.8 mg/dL (2.5-4.5)
[2024-09-21] VITALS (95 sets, daily range): BP systolic 83–116; BP diastolic 50–86; PULSE 66–127; RESP 13–28; TEMP 36.4–38.2; O2SAT 79–100
[2024-09-21] MEDS: meropenem 1,000 mg SDV 1000 MG IVP ×4 (00:10→23:50)
[2024-09-21] MEDS: D5-NS 0.45% + KCL 20 mEq 20 MEQ/1,000 ML BAG 50 MEQ IV (00:11)
[2024-09-21 00:24] LABS: Glucose Point of Care 243 mg/dL (70-110)
[2024-09-21] MEDS: clindamycin 600 MG/50 ML PREMIX 100 MG IV ×3 (00:56→15:12)
--- NOTE | 2024-09-21 01:20 | CTR_ITS ---
PROCEDURE INFORMATION: Exam: CTA Chest With Contrast Exam date and time: 09/21/2024 1:25 AM Age: 43 years old Clinical indication: Abdominal tenderness; Shortness of breath; Prior surgery; Surgery date: 6+ months; Surgery type: Choley; Patient HX: HX of pcos, HTN, ibs; Additional info: SOB, tachycardia TECHNIQUE: Imaging protocol: Computed tomographic angiography of the chest with contrast. Exam focused on the arteries. 3D rendering (Not supervised by radiologist): MIP and/or 3D reconstructed images were created by the technologist. Radiation optimization: All CT scans at this facility use at least one of these dose optimization techniques: automated exposure control; mA and/or kV adjustment per patient size (includes targeted exams where dose is matched to clinical indication); or iterative reconstruction. Contrast material: OMNI 350; Contrast volume: 100 ml; Contrast route: INTRAVENOUS (IV); COMPARISON: CR (CHEST, ) 09/20/2024 6:23 PM RADIATION DOSE METRICS: Total DLP (mGy-cm): 1673.58 FINDINGS: Pulmonary arteries: Normal. No pulmonary emboli. Aorta: Unremarkable. No aortic aneurysm. No aortic dissection. Lungs: Minimal bibasilar atelectasis. 2.5 cm bleb in the left lung base. No focal consolidation Pleural spaces: Unremarkable. No pneumothorax. No pleural effusion. Heart: Unremarkable. No cardiomegaly. No pericardial effusion. Lymph nodes: Unremarkable. No enlarged lymph nodes. Bones/joints: Thoracic spine degenerative changes. No acute fracture or malalignment. Soft tissues: Unremarkable. PROCEDURE INFORMATION: Exam: CT Abdomen And Pelvis With Contrast Exam date and time: 09/21/2024 1:25 AM Age: 43 years old Clinical indication: Abdominal tenderness; Shortness of breath; Prior surgery; Surgery date: 6+ months; Surgery type: Choley; Patient HX: HX of pcos, HTN, ibs; Additional info: SOB, tachycardia TECHNIQUE: Imaging protocol: Computed tomography of the abdomen and pelvis with contrast. Radiation optimization: All CT scans at this facility use at least one of these dose optimization techniques: automated exposure control; mA and/or kV adjustment per patient size (includes targeted exams where dose is matched to clinical indication); or iterative reconstruction. Contrast material: OMNI 350; Contrast volume: 100 ml; Contrast route: INTRAVENOUS (IV); COMPARISON: CT abdomen pelvis wo con [id number] 01/11/2024 12:34 PM RADIATION DOSE METRICS: Total DLP (mGy-cm): 0 FINDINGS: Diaphragm: Small hiatal hernia with suspected gastroesophageal reflux Liver: Normal. No mass. Gallbladder and biliary ducts: Gallbladder is surgically absent. No biliary dilatation. Gallbladder is surgically absent. No biliary dilatation. Pancreas: Normal. No ductal dilation. Spleen: Normal. No splenomegaly. Adrenal glands: Normal. No mass. Kidneys and ureters: Mild bilateral perinephric stranding. No hydronephrosis or renal stones. Stomach and bowel: Increased stool within the colon. No dilated bowel. Appendix: No evidence of appendicitis. Intraperitoneal space: Unremarkable. No free air. No significant fluid collection. Vasculature: Unremarkable. No abdominal aortic aneurysm. Lymph nodes: Unremarkable. No enlarged lymph nodes. Urinary bladder: Unremarkable as visualized. Reproductive: Unremarkable as visualized. Bones/joints: Lumbar spine degenerative changes. No acute fracture. Soft tissues: Unremarkable. CT/CT angio chest w abd pel w con IMPRESSION: 1. Minimal bibasilar atelectasis. 2.5 cm bleb in the left lung base. 2. No pulmonary emboli IMPRESSION: 1. Mild bilateral perinephric stranding. No hydronephrosis or renal stones. 2. Increased stool within the colon. No dilated bowel.
[2024-09-21 01:37] LABS: Anion Gap 16.2 (5-19); Blood Urea Nitrogen 6 mg/dL (6-20); Calcium 7.9 mg/dL (8.5-10.5); Carbon Dioxide 18 mmol/L (22-29); Chloride 105 mmol/L (98-107); Creatinine Clr Calc Pharmacy 144.3722; Glomerular Filtration Rate 109.1 mL/min (90-130); Glucose 244 mg/dL (65-115); Osmolality Calculated 286 mOsm/kg (285-295); Potassium 4.2 mmol/L (3.5-5.1); Sodium 135 mmol/L (136-145)
[2024-09-21] MEDS: iohexol 350 mg/mL 500 mL Btl (per mL) IV (01:39)
[2024-09-21 02:10] LABS: Glucose Point of Care 216 mg/dL (70-110)
[2024-09-21 02:10] LABS: Glucose Point of Care 250 mg/dL (70-110)
[2024-09-21] MEDS: sodium bicarbonate 50 MEQ in sodium chloride 0.45% 1,000 ML 100 MEQ IV (02:23)
[2024-09-21] MEDS: vancomycin 1,500 MG/300 ML PIGGYBACK 300 MG IV ×2 (03:08→15:58)
[2024-09-21 03:23] LABS: Glucose Point of Care 238 mg/dL (70-110)
[2024-09-21 04:06] LABS: Glucose Point of Care 213 mg/dL (70-110)
[2024-09-21 04:59] LABS: Creatine Phosphokinase 169 U/L (26-192)
[2024-09-21 05:00] LABS: Lactate (Lactic Acid level) 1.2 mmol/L (0.5-2.2)
[2024-09-21 05:01] LABS: Procalcitonin 0.51 ng/mL (0-0.5)
[2024-09-21 05:02] LABS: Alanine Aminotransferase 6 U/L (0-33); Albumin Level 2.8 g/dL (3.5-5.2); Alkaline Phosphatase 72 U/L (35-105); Anion Gap 17.2 (5-19); Aspartate Amino Transferase 11 U/L (0-32); Blood Urea Nitrogen 5 mg/dL (6-20); C Reactive Protein 216.2 mg/L (0.0-4.9); Calcium 7.7 mg/dL (8.5-10.5); Carbon Dioxide 18 mmol/L (22-29); Chloride 105 mmol/L (98-107); Creatinine Clr Calc Pharmacy 173.2467; Globulin 2.3 g/dL (1.3-4.6); Glomerular Filtration Rate 134.7 mL/min (90-130); Glucose 217 mg/dL (65-115); Osmolality Calculated 286 mOsm/kg (285-295); Potassium 4.2 mmol/L (3.5-5.1); Sodium 136 mmol/L (136-145); Total Bilirubin 0.4 mg/dL (0.15-1.2); Total Protein 5.1 g/dL (6.6-8.7)
[2024-09-21 05:09] LABS: Glucose Point of Care 188 mg/dL (70-110)
[2024-09-21] MEDS: acetaminophen 325 mg Tablet 650 MG PO ×2 (05:09→23:49)
[2024-09-21 06:11] LABS: Glucose Point of Care 168 mg/dL (70-110)
[2024-09-21 06:51] LABS: Basophils % 0.4 %; Eosinophils % 0.4 %; Hematocrit 25.6 % (36-47); Lymphocytes # 0.6 10^3/uL (0.8-4.8); Lymphocytes % 10.9 %; Mean Corpuscular HGB Conc 30.9 g/dL (30-55); Mean Corpuscular Hemoglobin 26.4 pg (27-33); Mean Corpuscular Volume 85.6 fl (85-98); Monocytes # 0.5 10^3/uL (0.2-0.9); Monocytes % 10.2 %; Neutrophils # 4.03 10^3/uL (1.8-7.7); Neutrophils % 77.3 %; Nucleated Red Blood Cells % 0 %; Platelet Count 120 10^3/cmm (157-399); Red Blood Count 2.99 10^6/uL (3.85-5.65); Red Cell Distribution Width 14.4 % (12.1-15.1); White Blood Count 5.21 10^3/uL (3.29-11.43)
[2024-09-21 07:17] LABS: Basophils % 0.3 %; Eosinophils % 0.3 %; Hematocrit 26.1 % (36-47); Lymphocytes # 0.6 10^3/uL (0.8-4.8); Lymphocytes % 9.4 %; Mean Corpuscular HGB Conc 32.6 g/dL (30-55); Mean Corpuscular Hemoglobin 26.7 pg (27-33); Mean Corpuscular Volume 82.1 fl (85-98); Mean Platelet Volume 12.7 fL (7.4-10.4); Monocytes # 0.6 10^3/uL (0.2-0.9); Monocytes % 10.2 %; Neutrophils # 4.79 10^3/uL (1.8-7.7); Neutrophils % 79.3 %; Nucleated Red Blood Cells % 0 %; Platelet Count 144 10^3/cmm (157-399); Red Blood Count 3.18 10^6/uL (3.85-5.65); Red Cell Distribution Width 14.4 % (12.1-15.1); White Blood Count 6.05 10^3/uL (3.29-11.43)
[2024-09-21 07:28] LABS: Glucose Point of Care 158 mg/dL (70-110)
--- NOTE | 2024-09-21 07:28 | P.PN_ITS ---
Subjective 2 Subjective: Patient was seen at bedside this morning. Overall, patient appears improved in comparison to yesterday. Patient states that she feels much better. Patient did have fevers that persisted overnight with an overnight Tmax of 100.8. Patient denies any recent emesis. Day 1 status post left foot incision and drainage Vitals/I&O/Wt Last Vital Signs Temp 100.8 F H 09/21/24 05:13 Pulse 102 H 09/21/24 06:00 Resp 22 H 09/21/24 04:00 BP 96/58 09/21/24 04:00 Pulse Ox 100 09/21/24 04:00 O2 Del Method Room Air 09/21/24 02:45 O2 Flow Rate 5 09/20/24 08:29 09/20/24 09/21/24 09/21/24 22:59 06:59 14:59 Intake Total 2462.7739 / 3925.5239 1768.532 / 5694.0559 1.233 / 1.233 Output Total 1100 / 1110 900 / 2010 Balance 1362.7739 / 2815.5239 868.532 / 3684.0559 1.233 / 1.233 Weight last 48 hrs Weight 211 lb 3.2 oz Weight 198 lb Weight 198 lb 6.656 oz Weight 200 lb Physical Exam 2 Narrative: BELOW IS A FOCUSED LOWER EXTREMITY EXAM GENERAL: A&O x 3 VASCULAR: DP/PT pulses palpable 2/4 with CFT intact, <3seconds to distal digits DERMATOLOGICAL: Left foot incision and drainage site is dry with no active purulence, no active drainage. Fifth digit shows color changes with light grayish ischemic tone. No drainage expressed from the left foot incision site with expression at bedside. No pain with range of motion of ankle joint or subtalar joint. No soft tissue crepitus or evidence of underlying abscess appreciated. Erythema markedly improved in comparison to yesterday MUSCULOSKELETAL: No pain with palpation of kelsie-incisional area, squeezing of forefoot, range of motion of ankle joint NEUROLOGICAL: Neurological sensation to the affected foot and ankle is diminished through L4-S1 dermatomes via 10g SWMF, diminished sensation extends proximally to the level of the ankle IMAGING: X-rays of left foot taken postoperatively yesterday show resolution of soft tissue emphysema with surgical packing in place. No proximal soft tissue gas noted Data 09/21/24 07:10 09/21/24 03:54 Micro: Microbiology 09/20/24 14:40 Blood Culture - Preliminary Blood SPECIMEN COLLECTED 09/20/24 13:31 Blood Culture - Preliminary Blood SPECIMEN COLLECTED 09/19/24 11:05 Blood Culture - Preliminary Blood NEGATIVE TO DATE 09/19/24 10:51 Blood Culture - Preliminary Blood NEGATIVE TO DATE A&P Assessment and plan (1) Diabetic ulcer of left foot: (2) Sepsis: (3) Gas gangrene: Plan -Chronic ulceration left foot fifth metatarsal head region, gas gangrene, cellulitis, producing sepsis--improving -Labs and vitals reviewed -WBC 13.48--> 6.05 -ESR 79 -CRP 452.8--> 216.2 -HR 102 -RR 22 -Tmax 100.8 overnight -Cultures blood?NGTD; wound?gram-positive cocci preliminary -Abx Vanco/meropenem/clindamycin -Diet: N.p.o. -POD: 1 left foot incision and drainage. Left foot infection has stabilized. -Patient will need to return to operating room in coming days for definitive surgical treatment. Patient shows early ischemic changes to left fifth digit. I discussed with her that return to surgery will likely involve fifth digit amputation with partial fifth ray resection. I will continue to perform daily dressing changes and monitor progress of wound. Tentatively we will plan for return to the OR on 09/24/2024 provided there is no decline in left foot status prior to this. Left foot is stable at bedside this morning. -Pain Mgmt: Per primary team -Weight bearing: To left foot for transfers only -Dressings: Betadine wet-to-dry dressing applied by podiatry daily. -Continue current Abx therapy until ID and Sensitivity results -Trend labs -Discharge plan: To be determined -Podiatry will continue to round on patient daily and provide recommendations Attestations 2 Medical Necessity Statement*: See hospitalist note Coding Level of Care Code Acute Code for [facility] Diagnoses Diabetic ulcer of left foot E11.621; L97.529 Sepsis A41.9 Gas gangrene A48.0
--- NOTE | 2024-09-21 07:52 | PC.NURSE ---
Insulin drip titrated up to 3 units/hr per Dr. Gustafson.
[2024-09-21] MEDS: sucralfate 1 gm/10 mL Oral Liq UDC PO ×4 (08:20→19:48)
[2024-09-21] MEDS: aspirin 81 mg EC Tablet PO (08:21)
[2024-09-21] MEDS: pantoprazole 40 mg SDV IVP ×2 (08:21→19:48)
[2024-09-21] MEDS: escitalopram 10 mg Tablet PO (08:21)
[2024-09-21] MEDS: lamoTRIgine 100 mg Tablet 200 MG PO ×2 (08:21→17:28)
[2024-09-21] MEDS: pregabalin 50 mg Capsule PO ×3 (08:21→21:31)
[2024-09-21 08:46] LABS: Glucose Point of Care 154 mg/dL (70-110)
[2024-09-21 09:09] LABS: Glucose Point of Care 149 mg/dL (70-110)
[2024-09-21 09:26] LABS: Anion Gap 11.6 (5-19); Blood Urea Nitrogen 4 mg/dL (6-20); Calcium 7.6 mg/dL (8.5-10.5); Carbon Dioxide 20 mmol/L (22-29); Chloride 107 mmol/L (98-107); Creatinine Clr Calc Pharmacy 223.4155; Ferritin 332 ng/mL (15-150); Glomerular Filtration Rate 174.2 mL/min (90-130); Glucose 141 mg/dL (65-115); Iron 12 ug/dL (37-145); Osmolality Calculated 279 mOsm/kg (285-295); Percent Saturation 8.1 % (20-50); Potassium 3.6 mmol/L (3.5-5.1); Sodium 135 mmol/L (136-145); Total Iron Binding Capacity 148 mcg/dl; Unsaturated Iron Binding 136 ug/dL (112-347)
[2024-09-21] MEDS: ibuprofen 200 mg Tablet 400 MG PO (09:47)
[2024-09-21] MEDS: potassium chloride ER 20 mEq Tablet 40 MEQ PO (09:47)
[2024-09-21] MEDS: insulin glargine 100 units/1 mL 30 UNIT SUBCUT ×2 (10:07→21:31)
[2024-09-21 10:26] LABS: Glucose Point of Care 111 mg/dL (70-110)
[2024-09-21 11:18] LABS: Glucose Point of Care 90 mg/dL (70-110)
[2024-09-21 12:11] LABS: Basophils % 0.4 %; Eosinophils % 0.6 %; Hematocrit 24.7 % (36-47); Lymphocytes % 18.8 %; Mean Corpuscular Hemoglobin 26.5 pg (27-33); Mean Corpuscular Volume 82.9 fl (85-98); Mean Platelet Volume 12.5 fL (7.4-10.4); Monocytes # 0.8 10^3/uL (0.2-0.9); Monocytes % 14.8 %; Neutrophils # 3.32 10^3/uL (1.8-7.7); Neutrophils % 64.8 %; Nucleated Red Blood Cells % 0 %; Platelet Count 136 10^3/cmm (157-399); Red Blood Count 2.98 10^6/uL (3.85-5.65); Red Cell Distribution Width 14.4 % (12.1-15.1); White Blood Count 5.12 10^3/uL (3.29-11.43)
[2024-09-21 12:25] LABS: Anion Gap 16.6 (5-19); Blood Urea Nitrogen 3 mg/dL (6-20); Calcium 7.9 mg/dL (8.5-10.5); Carbon Dioxide 18 mmol/L (22-29); Chloride 103 mmol/L (98-107); Creatinine Clr Calc Pharmacy 178.7324; Glomerular Filtration Rate 134.7 mL/min (90-130); Glucose 92 mg/dL (65-115); Osmolality Calculated 274 mOsm/kg (285-295); Potassium 3.6 mmol/L (3.5-5.1); Sodium 134 mmol/L (136-145)
--- NOTE | 2024-09-21 13:24 | PC.NURSE ---
Dr. Gustafson ordered to hold lovenox dose due to low hemoglobin count.
[2024-09-21 13:57] LABS: Glucose Point of Care 194 mg/dL (70-110)
--- NOTE | 2024-09-21 14:26 | P.PN_ITS ---
Subjective 2 Subjective: Patient was seen this morning, she feels better, still on insulin drip, for diabetic ketoacidosis anion gap 18, she is off Levophed and stopped at 4 AM, denies any bloody black stools discussed her anemia, denies a history of EGD and colonoscopy does report she has a history of anemia no history of vaginal bleeding, she feels better this morning, no nausea, vomiting, abdominal pain, no chest pain Vitals/I&O/Wt Last Vital Signs Temp 99.7 F H 09/21/24 08:45 Pulse 94 09/21/24 14:00 Resp 22 H 09/21/24 12:00 BP 101/59 09/21/24 12:00 Pulse Ox 100 09/21/24 12:00 O2 Del Method Room Air 09/21/24 12:00 O2 Flow Rate 5 09/20/24 08:29 09/20/24 09/21/24 09/21/24 22:59 06:59 14:59 Intake Total 2462.7739 / 3925.5239 1768.532 / 5694.0559 1873.667 / 1873.667 Output Total 1100 / 1110 900 / 2009 450 / 450 Balance 1362.7739 / 2815.5239 868.532 / 3684.0559 1423.667 / 1423.667 Weight last 48 hrs Weight 95.799 kg Weight 89.811 kg Physical Exam 2 Const: COMMON NORMALS: no acute distress and patient oriented x3 Resp: COMMON NORMALS: normal respiratory effort, No retractions, No use of accessory muscles and clear to auscultation bilaterally AUSCULTATION: clear to auscultation bilaterally Cardio: COMMON NORMALS: regular rate, regular rhythm, S1 normal heart sound present and S2 normal heart sound present RATE: regular rate RHYTHM: r egular rhythm HEART SOUNDS: S1 normal heart sound present and S2 normal heart sound present GI: COMMON NORMALS: Normal to inspection, nondistended, normoactive bowel sounds present and non-tender Extremity: COMMON NORMALS: no pedal edema Neuro: COMMON NORMALS: patient oriented x3 Psych: COMMON NORMALS: mental status grossly normal Data 09/21/24 11:52 09/21/24 11:52 Micro: Microbiology 09/20/24 13:31 Blood Culture - Preliminary Blood NEGATIVE TO DATE 09/20/24 06:20 Urine Culture - Preliminary Urine,Clean Catch 09/20/24 14:40 Blood Culture - Preliminary Blood SPECIMEN COLLECTED 09/19/24 11:05 Blood Culture - Preliminary Blood NEGATIVE TO DATE 09/19/24 10:51 Blood Culture - Preliminary Blood NEGATIVE TO DATE A&P Assessment and plan (1) Diabetic ketoacidosis: (2) Diabetic ulcer of left foot: (3) Sepsis: (4) Septic shock: (5) DM II (diabetes mellitus, type II), controlled: Qualifiers: Diabetes mellitus jail insulin use: with [employer] use Diabetes mellitus complication status: with unspecified complications Qualified Code(s): E11.8 - Type 2 diabetes mellitus with unspecified complications; Z79.4 - prison (current) use of insulin (6) Rhinovirus: (7) GI bleed: (8) Pyelonephritis: Plan Diabetic ketoacidosis -Anion gap passing close currently 18, pH 7.4, bicarb 15-16, blood sugars 200s to 300s Plan -Monitor in ICU -Keep n.p.o. -DKA protocol -Every hour blood sugars -BMP every 4 hours -Insulin drip -Due to metabolic acidosis, started on bicarb drip -Once anion gap closes, less than 16, switch to subcu insulin and Lantus Left foot diabetic ulcer -ESR 79, CRP 452 MRI foot - MR/MR foot LT wo con* [id number] IMPRESSION: 1. Findings suspicious for early septic 5th metatarsophalangeal joint. No evidence of osteomyelitis or abscess at this time. 2. Soft tissue air in the lateral forefoot suggestive of infection with a gas-forming organism. -Vancomycin -Zosyn broadened to meropenem -Clindamycin added -Follow blood cultures -Follow tissue cultures -Status post surgical debridement by Dr. Magdaleno this morning postoperative day 0 -Podiatry consulted Sepsis with septic shock -Sepsis features met given elevated lactic acid, 11 CRP, Pro-Junior, tachycardia, tachypnea, source of infection to his left foot -Currently off Levophed -PICC line order placed Complaints of chest pain and shortness of breath -D-dimer elevated 1.4 CT angiogram of the chest negative of PE -Troponin series EKG series no significant delta troponin -Venous ultrasound no DVT Possible UTI with pyelonephritis Abdominal pain complaints, nausea, vomiting -CT scan abdomen pelvis IMPRESSION: 1. Mild bilateral perinephric stranding. No hydronephrosis or renal stones. 2. Increased stool within the colon. No dilated gus -Follow urine culture, blood cultures, antibiotics as above Febrile episodes -Likely secondary diabetic foot infection as above -She is on Lamictal, escitalopram fairly unlikely for her to be serotonin syndrome -Malignant hyperthermia also felt to be unlikely as CPK is within normal limits, pH within normal limits, pCO2 within normal limits, no muscle rigidity, no muscle spasms, fever has broken -Repeat blood cultures -He is positive for rhinovirus, possibly viral illness playing a role to febrile episodes Rhinovirus -Isolation precautions Type 2 diabetes mellitus Concern for GI bleed ? Hemoglobin down to 7.9 ? No reported bloody black stools - did require Levophed during the night ? Iron studies seem to suggest early onset iron deficiency anemia Hold Lovenox for now ? Monitor hemoglobin every 4 hours -Transfuse if hemoglobin less than 7 Full code Lovenox for DVT prophylaxis Protonix for GI prophylaxis Plan for today for sepsis secondary to left foot diabetic ulcer, spoke to Dr. Sanchez, continue IV antibiotics, continue to clinically monitor, for fevers For diabetic ketoacidosis remains on insulin drip, recheck BMP once anion gap closes, switch to subcu insulin and Lantus, BMP is close to 11.6, switch to Lantus and subcu insulin, concern for pyelonephritis, continue IV antibiotics, rhinovirus continue isolation tile for fevers, concerns for GI bleed monitor hemoglobin every 4 hours, hold Lovenox, transfuse if hemoglobin less than 7, monitor hemodynamics closely Attestations 2 Medical Necessity Statement*: Patient requires hospitalization, for GI bleed, sepsis, septic shock, concerns for pyelonephritis, rhinovirus, febrile episode, left foot diabetic ulcer, diabetic ketoacidosis, Coding Level of Care Code Critical Care >/= 30 minutes Critical care time (in minutes): 35 The high probability of a clinically significant, sudden or life threatening deterioration, as referenced in this documentation, required my full and direct attention, intervention and personal management. The critical care time shown is in addition to time spent performing any reported separately billable procedures and includes the following: [x] Data and vital sign review and interpretation [x ] Patient assessment, examination and intervention [x] Medication orders and management [x] Patient/Family updates as able [x] Care Coordination and Documentation. Diagnoses Diabetic ketoacidosis E11.10 Diabetic ulcer of left foot E11.621; L97.529 Sepsis A41.9 Septic shock A41.9; R65.21 Controlled type 2 diabetes mellitus with complication, with long-term current use of insulin E11.8; Z79.4 Diabetes mellitus [employer] insulin use: with jail 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
[2024-09-21] MEDS: sodium chloride 0.9% 1,000 ML 50 ML IV (14:36)
[2024-09-21 15:31] LABS: Hematocrit 21.7 % (36-47)
[2024-09-21 15:51] LABS: Vancomycin Trough 7.4 ug/mL (10-15)
[2024-09-21] MEDS: sodium chloride 0.9% 100 mL Bag 50 ML IV (17:28)
[2024-09-21] MEDS: atorvastatin 40 mg Tablet 20 MG PO (17:28)
[2024-09-21 17:36] LABS: Glucose Point of Care 130 mg/dL (70-110)
[2024-09-21] MEDS: insulin lispro 100 unit/1 mL SUBCUT (21:34)
[2024-09-21 23:21] LABS: Hematocrit 28.2 % (36-47)
[2024-09-21] MEDS: vancomycin 1,500 MG/300 ML PIGGYBACK 200 MG IV (23:51)
[2024-09-22] VITALS (25 sets, daily range): BP systolic 99–131; BP diastolic 60–80; PULSE 74–96; RESP 14–23; TEMP 37–37.8; O2SAT 92–100
[2024-09-22 00:22] LABS: Glucose Point of Care 155 mg/dL (70-110)
[2024-09-22 01:33] LABS: Hematocrit 28.4 % (36-47)
[2024-09-22] MEDS: clindamycin 600 MG/50 ML PREMIX 100 MG IV ×3 (01:33→15:53)
[2024-09-22] MEDS: sucralfate 1 gm/10 mL Oral Liq UDC PO ×4 (01:34→20:13)
[2024-09-22 05:00] LABS: Basophils % 0.2 %; Eosinophils # 0.1 10^3/uL (0.0-0.8); Eosinophils % 1.2 %; Hematocrit 27.6 % (36-47); Lymphocytes # 0.8 10^3/uL (0.8-4.8); Lymphocytes % 16.3 %; Mean Corpuscular HGB Conc 31.5 g/dL (30-55); Mean Corpuscular Hemoglobin 26.8 pg (27-33); Mean Corpuscular Volume 84.9 fl (85-98); Monocytes # 0.6 10^3/uL (0.2-0.9); Monocytes % 12.2 %; Neutrophils # 3.36 10^3/uL (1.8-7.7); Neutrophils % 69.5 %; Nucleated Red Blood Cells % 0 %; Platelet Count 132 10^3/cmm (157-399); Red Blood Count 3.25 10^6/uL (3.85-5.65); White Blood Count 4.84 10^3/uL (3.29-11.43)
[2024-09-22] MEDS: acetaminophen 325 mg Tablet 650 MG PO (05:12)
[2024-09-22 05:18] LABS: Creatine Phosphokinase 130 U/L (26-192)
[2024-09-22 05:19] LABS: Procalcitonin 0.31 ng/mL (0-0.5)
[2024-09-22 05:21] LABS: Alanine Aminotransferase 7 U/L (0-33); Albumin Level 2.6 g/dL (3.5-5.2); Alkaline Phosphatase 81 U/L (35-105); Anion Gap 12.9 (5-19); Aspartate Amino Transferase 13 U/L (0-32); Blood Urea Nitrogen 3 mg/dL (6-20); C Reactive Protein 151.7 mg/L (0.0-4.9); Calcium 8.2 mg/dL (8.5-10.5); Carbon Dioxide 20 mmol/L (22-29); Chloride 107 mmol/L (98-107); Creatinine Clr Calc Pharmacy 178.7324; Globulin 2.9 g/dL (1.3-4.6); Glomerular Filtration Rate 134.7 mL/min (90-130); Glucose 129 mg/dL (65-115); Osmolality Calculated 280 mOsm/kg (285-295); Phosphorus 2.8 mg/dL (2.5-4.5); Potassium 3.9 mmol/L (3.5-5.1); Sodium 136 mmol/L (136-145); Total Bilirubin 0.7 mg/dL (0.15-1.2); Total Protein 5.5 g/dL (6.6-8.7)
[2024-09-22] MEDS: meropenem 1,000 mg SDV 1000 MG IVP ×2 (07:42→15:52)
[2024-09-22] MEDS: pantoprazole 40 mg SDV IVP ×2 (07:43→20:13)
[2024-09-22 07:55] LABS: Glucose Point of Care 121 mg/dL (70-110)
[2024-09-22] MEDS: escitalopram 10 mg Tablet PO (08:41)
[2024-09-22] MEDS: lamoTRIgine 100 mg Tablet 200 MG PO ×2 (08:41→17:10)
[2024-09-22] MEDS: aspirin 81 mg EC Tablet PO (08:41)
[2024-09-22] MEDS: vancomycin 1,500 MG/300 ML PIGGYBACK 200 MG IV ×2 (08:41→17:11)
[2024-09-22] MEDS: pregabalin 50 mg Capsule PO ×3 (08:41→20:13)
[2024-09-22] MEDS: sodium chloride 0.9% 1,000 ML 50 ML IV (09:33)
[2024-09-22] MEDS: insulin glargine 100 units/1 mL 30 UNIT SUBCUT ×2 (09:33→21:04)
--- NOTE | 2024-09-22 10:27 | PM.PN ---
Subjective Subjective: Patient seen at bedside this morning. Resting comfortably. No overnight events. Patient continues to improve. States that she is feeling much better. Wants to know why the surgery cannot be done sooner so that she can go home. Vitals/I&O/Wt Last Vital Signs Temp 98.6 F 09/22/24 06:00 Pulse 90 09/22/24 08:00 Resp 22 H 09/22/24 08:00 BP 121/80 09/22/24 08:00 Pulse Ox 100 09/22/24 08:00 O2 Del Method Room Air 09/22/24 06:00 O2 Flow Rate 5 09/20/24 08:29 09/21/24 09/22/24 09/22/24 22:59 06:59 14:59 Intake Total 1060 / 2933.667 550 / 3483.667 1597.5 / 1597.5 Output Total 1000 / 1450 600 / 2050 Balance 60 / 1483.667 -50 / 4045.888 1393.5 / 1597.5 Weight last 48 hrs Weight 208 lb Weight 211 lb 3.2 oz Physical Exam Narrative: BELOW IS A FOCUSED LOWER EXTREMITY EXAM GENERAL: A&O x 3 VASCULAR: DP/PT pulses palpable 2/4 with CFT intact, <3seconds to distal digits DERMATOLOGICAL: Left foot incision and drainage site is dry with no active purulence, no active drainage. Fifth digit shows color changes with light grayish ischemic tone. No drainage expressed from the left foot incision site with expression at bedside. No pain with range of motion of ankle joint or subtalar joint. No soft tissue crepitus or evidence of underlying abscess appreciated. Erythema markedly improved in comparison to yesterday MUSCULOSKELETAL: No pain with palpation of kelsie-incisional area, squeezing of forefoot, range of motion of ankle joint NEUROLOGICAL: Neurological sensation to the affected foot and ankle is diminished through L4-S1 dermatomes via 10g SWMF, diminished sensation extends proximally to the level of the ankle IMAGING: X-rays of left foot taken postoperatively yesterday show resolution of soft tissue emphysema with surgical packing in place. No proximal soft tissue gas noted Data 09/22/24 04:12 09/22/24 04:12 Micro: Microbiology 09/21/24 19:39 Occult Blood (FIT) - Final Stool 09/19/24 13:48 Gram Stain - Final Tissue Wound Culture - Preliminary Escherichia coli Strep agalactiae - (group b) 09/20/24 14:40 Blood Culture - Preliminary Blood NEGATIVE TO DATE 09/20/24 13:31 Blood Culture - Preliminary Blood NEGATIVE TO DATE 09/20/24 06:20 Urine Culture - Preliminary Urine,Clean Catch A&P Assessment and plan (1) Diabetic ulcer of left foot: (2) Sepsis: (3) Gas gangrene: Plan -Chronic ulceration left foot fifth metatarsal head region, gas gangrene, cellulitis, producing sepsis--improving -Labs and vitals reviewed -WBC 13.48--> 6.05-->4.84 -ESR 79 -CRP 452.8--> 216.2-->151.7 -HR 90 -RR 22 -Tmax 98.6 -Cultures blood?NGTD; group B strep, E. coli -Abx Vanco/meropenem/clindamycin -Diet: N.p.o. -POD: 2 left foot incision and drainage. Left foot infection has stabilized. -Plan to return to the OR on 09/24/2024 for definitive surgical treatment. Patient shows advancing ischemic changes to left fifth digit. I discussed with her that return to surgery will likely involve fifth digit amputation with partial fifth ray resection. I will continue to perform daily dressing changes and monitor progress of wound. plan for return to the OR on 09/24/2024 provided there is no decline in left foot status prior to this. Left foot is stable at bedside this morning. -Pain Mgmt: Per primary team -Weight bearing: To left foot for transfers only -Dressings: Betadine wet-to-dry dressing applied by podiatry daily. Dressing changed this a.m. by podiatry -Continue current Abx therapy until ID and Sensitivity results -Trend labs -Discharge plan: To be determined -Podiatry will continue to round on patient daily and provide recommendations Attestations Medical Necessity Statement*: See hospitalist note Coding Level of Care Code Acute Code for [facility] Diagnoses Diabetic ulcer of left foot E11.621; L97.529 Sepsis A41.9 Gas gangrene A48.0
[2024-09-22 12:08] LABS: Glucose Point of Care 132 mg/dL (70-110)
[2024-09-22] MEDS: water for injection-sterile 10 ML 10000 ML (15:53)
--- NOTE | 2024-09-22 15:58 | P.PN_ITS ---
Subjective 2 Subjective: Patient was seen this morning, she is alert oriented x 3, following all commands, no nausea, no vomiting, no fevers, no chills denies any bowel movement no blood or black stools, no hematemesis, she does have a fever this morning Vitals/I&O/Wt Last Vital Signs Temp 98.6 F 09/22/24 06:00 Pulse 76 09/22/24 14:00 Resp 19 H 09/22/24 12:00 BP 117/74 09/22/24 12:00 Pulse Ox 95 09/22/24 12:00 O2 Del Method Room Air 09/22/24 06:00 O2 Flow Rate 5 09/20/24 08:29 09/22/24 09/22/24 09/22/24 06:59 14:59 22:59 Intake Total 550 / 3483.667 1897.5 / 1897.5 Output Total 600 / 2050 Balance -50 / 4056.424 0389.5 / 1897.5 Weight last 48 hrs Weight 94.347 kg Weight 95.799 kg Physical Exam 2 Const: COMMON NORMALS: no acute distress and patient oriented x3 Resp: COMMON NORMALS: normal respiratory effort, No retractions, No use of accessory muscles and clear to auscultation bilaterally AUSCULTATION: clear to auscultation bilaterally Cardio: COMMON NORMALS: regular rate, regular rhythm, S1 normal heart sound present and S2 normal heart sound present RATE: regular rate RHYTHM: r egular rhythm HEART SOUNDS: S1 normal heart sound present and S2 normal heart sound present GI: COMMON NORMALS: Normal to inspection, nondistended, normoactive bowel sounds present and non-tender Extremity: COMMON NORMALS: no pedal edema Neuro: COMMON NORMALS: patient oriented x3 Psych: COMMON NORMALS: mental status grossly normal Data 09/22/24 04:12 09/22/24 04:12 Micro: Microbiology 09/19/24 13:48 Gram Stain - Final Tissue Wound Culture - Final Escherichia coli Strep agalactiae - (group b) 09/20/24 06:20 Urine Culture - Final Urine,Clean Catch 09/21/24 19:39 Occult Blood (FIT) - Final Stool 09/20/24 14:40 Blood Culture - Preliminary Blood NEGATIVE TO DATE 09/20/24 13:31 Blood Culture - Preliminary Blood NEGATIVE TO DATE A&P Assessment and plan (1) Diabetic ketoacidosis: (2) Diabetic ulcer of left foot: (3) Sepsis: (4) Septic shock: (5) DM II (diabetes mellitus, type II), controlled: Qualifiers: Diabetes mellitus group home 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 Findings suspicious for early septic 5th metatarsophalangeal joint. No evidence of osteomyelitis or abscess at this time. 2. Soft tissue air in the lateral forefoot suggestive of infection with a gas-forming organism. -Vancomycin - meropenem -Clindamycin added -Follow blood cultures -Follow tissue cultures -Status post surgical debridement by Dr. Sanchez this morning postoperative day 1 -Podiatry consulted Sepsis with septic shock -Sepsis features met given elevated lactic acid, 11 CRP, Pro-Junior, tachycardia, tachypnea, source of infection to his left foot -Currently off Levophed -PICC line order placed Complaints of chest pain and shortness of breath -D-dimer elevated 1.4 CT angiogram of the chest negative of PE -Troponin series EKG series no significant delta troponin -Venous ultrasound no DVT Possible UTI with pyelonephritis Abdominal pain complaints, nausea, vomiting -CT scan abdomen pelvis IMPRESSION: 1. Mild bilateral perinephric stranding. No hydronephrosis or renal stones. 2. Increased stool within the colon. No dilated gus -Follow urine culture, blood cultures, antibiotics as above Febrile episodes -Likely secondary diabetic foot infection as above -She is on Lamictal, escitalopram fairly unlikely for her to be serotonin syndrome -Malignant hyperthermia also felt to be unlikely as CPK is within normal limits, pH within normal limits, pCO2 within normal limits, no muscle rigidity, no muscle spasms, fever has broken -Repeat blood cultures -He is positive for rhinovirus, possibly viral illness playing a role to febrile episodes Rhinovirus -Isolation precautions Type 2 diabetes mellitus Concern for GI bleed -Hemoccult stool positive for blood ? Hemoglobin down to 7.0 -Status post 1 unit PRBC ? No reported bloody black stools - did require Levophed during the night ? Iron studies seem to suggest early onset iron deficiency anemia Hold Lovenox for now ? Monitor hemoglobin -Transfuse if hemoglobin less than 7 Full code Lovenox for DVT prophylaxis currently on hold due to acute anemia, SCDs Protonix for GI prophylaxis Patient requires hospitalization for left foot diabetic ulcer, acute anemia, febrile episodes of UTI GI bleed Attestations 2 Medical Necessity Statement*: Patient requires hospitalization for left foot diabetic ulcer with sepsis septic shock GI bleed febrile episodes UTI, rhinovirus Diagnoses Diabetic ketoacidosis E11.10 Diabetic ulcer of left foot E11.621; L97.529 Sepsis A41.9 Septic shock A41.9; R65.21 Controlled type 2 diabetes mellitus with complication, with long-term current use of insulin E11.8; Z79.4 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
[2024-09-22] MEDS: atorvastatin 40 mg Tablet 20 MG PO (17:10)
[2024-09-22 17:21] LABS: Glucose Point of Care 153 mg/dL (70-110)
[2024-09-22] MEDS: insulin lispro 100 unit/1 mL SUBCUT ×2 (17:22→21:06)
[2024-09-22 20:40] LABS: Glucose Point of Care 145 mg/dL (70-110)
[2024-09-22] MEDS: hyDROXYzine 25 mg Capsule PO (22:26)
[2024-09-23] VITALS (25 sets, daily range): BP systolic 100–139; BP diastolic 65–84; PULSE 0–88; RESP 15–24; TEMP 36.6–38.2; O2SAT 94–100
[2024-09-23] MEDS: meropenem 1,000 mg SDV 1000 MG IVP ×4 (00:21→23:28)
[2024-09-23] MEDS: vancomycin 1,500 MG/300 ML PIGGYBACK 200 MG IV ×4 (00:21→23:28)
[2024-09-23] MEDS: clindamycin 600 MG/50 ML PREMIX 100 MG IV ×4 (00:47→23:29)
[2024-09-23] MEDS: sucralfate 1 gm/10 mL Oral Liq UDC PO ×4 (01:00→19:27)
[2024-09-23] MEDS: acetaminophen 325 mg Tablet 650 MG PO (02:05)
[2024-09-23] MEDS: sodium chloride 0.9% 1,000 ML 50 ML IV (05:33)
[2024-09-23 07:24] LABS: Basophils % 0.3 %; Eosinophils # 0.1 10^3/uL (0.0-0.8); Eosinophils % 1.5 %; Hematocrit 26.6 % (36-47); Lymphocytes # 1.3 10^3/uL (0.8-4.8); Lymphocytes % 21.8 %; Mean Corpuscular HGB Conc 31.2 g/dL (30-55); Mean Corpuscular Hemoglobin 26.5 pg (27-33); Mean Platelet Volume 11.6 fL (7.4-10.4); Monocytes # 0.6 10^3/uL (0.2-0.9); Monocytes % 10.6 %; Neutrophils # 3.92 10^3/uL (1.8-7.7); Neutrophils % 64.6 %; Nucleated Red Blood Cells % 0 %; Platelet Count 136 10^3/cmm (157-399); Red Blood Count 3.13 10^6/uL (3.85-5.65); Red Cell Distribution Width 15.4 % (12.1-15.1); White Blood Count 6.06 10^3/uL (3.29-11.43)
[2024-09-23 07:47] LABS: Vancomycin Trough 18.2 ug/mL (10-15)
[2024-09-23 07:49] LABS: Glucose Point of Care 141 mg/dL (70-110)
[2024-09-23 07:54] LABS: Alanine Aminotransferase 12 U/L (0-33); Albumin Level 2.6 g/dL (3.5-5.2); Alkaline Phosphatase 83 U/L (35-105); Anion Gap 11.6 (5-19); Aspartate Amino Transferase 26 U/L (0-32); Blood Urea Nitrogen 2 mg/dL (6-20); C Reactive Protein 102.8 mg/L (0.0-4.9); Calcium 8.7 mg/dL (8.5-10.5); Carbon Dioxide 23 mmol/L (22-29); Chloride 104 mmol/L (98-107); Creatinine Clr Calc Pharmacy 216.0808; Globulin 3.4 g/dL (1.3-4.6); Glomerular Filtration Rate 134.7 mL/min (90-130); Glucose 138 mg/dL (65-115); Magnesium 1.7 mg/dL (1.7-2.3); Osmolality Calculated 278 mOsm/kg (285-295); Phosphorus 3.6 mg/dL (2.5-4.5); Potassium 3.6 mmol/L (3.5-5.1); Sodium 135 mmol/L (136-145); Total Bilirubin 0.3 mg/dL (0.15-1.2)
[2024-09-23 07:56] LABS: Creatine Phosphokinase 66 U/L (26-192); Lactate (Lactic Acid level) 0.9 mmol/L (0.5-2.2)
[2024-09-23 08:00] LABS: Procalcitonin 0.16 ng/mL (0-0.5)
[2024-09-23] MEDS: insulin lispro 100 unit/1 mL SUBCUT ×2 (08:09→17:21)
[2024-09-23] MEDS: pantoprazole 40 mg SDV IVP ×2 (08:10→19:27)
[2024-09-23] MEDS: water for injection-sterile 20 ML 10000 ML (08:13)
[2024-09-23] MEDS: pregabalin 50 mg Capsule PO ×3 (09:22→21:06)
[2024-09-23] MEDS: lamoTRIgine 100 mg Tablet 200 MG PO ×2 (09:23→17:20)
[2024-09-23] MEDS: aspirin 81 mg EC Tablet PO (09:23)
[2024-09-23] MEDS: escitalopram 10 mg Tablet PO (09:23)
[2024-09-23] MEDS: insulin glargine 100 units/1 mL 30 UNIT SUBCUT ×2 (09:25→21:07)
[2024-09-23 11:18] LABS: Glucose Point of Care 134 mg/dL (70-110)
--- NOTE | 2024-09-23 11:56 | PC.NURSE ---
Dr Sanchez here exam pt , dressing redone on foot ,, to proceed to surgery in am and amptee of small toe probable ,
--- NOTE | 2024-09-23 15:17 | PM.PN ---
Subjective Subjective: Patient seen at bedside this morning. Doing well. No overnight events. Surgery tomorrow. Vitals/I&O/Wt Last Vital Signs Temp 98.2 F 09/23/24 04:00 Pulse 70 09/23/24 14:06 Resp 18 09/23/24 12:00 BP 100/65 09/23/24 12:00 Pulse Ox 95 09/23/24 12:00 O2 Del Method Room Air 09/23/24 05:00 O2 Flow Rate 5 09/20/24 08:29 09/23/24 09/23/24 09/23/24 06:59 14:59 22:59 Intake Total 1350 / 4157.5 370 / 370 Output Total 500 / 2050 700 / 700 Balance 850 / 2107.5 -330 / -330 Weight last 48 hrs Weight 208 lb Physical Exam Narrative: BELOW IS A FOCUSED LOWER EXTREMITY EXAM GENERAL: A&O x 3 VASCULAR: DP/PT pulses palpable 2/4 with CFT intact, <3seconds to distal digits DERMATOLOGICAL: Left foot incision and drainage site is dry with no active purulence, no active drainage. Fifth digit shows color changes with light grayish ischemic tone. No drainage expressed from the left foot incision site with expression at bedside. No pain with range of motion of ankle joint or subtalar joint. No soft tissue crepitus or evidence of underlying abscess appreciated. Erythema markedly improved in comparison to yesterday MUSCULOSKELETAL: No pain with palpation of kelsie-incisional area, squeezing of forefoot, range of motion of ankle joint NEUROLOGICAL: Neurological sensation to the affected foot and ankle is diminished through L4-S1 dermatomes via 10g SWMF, diminished sensation extends proximally to the level of the ankle IMAGING: X-rays of left foot taken postoperatively yesterday show resolution of soft tissue emphysema with surgical packing in place. No proximal soft tissue gas noted Data 09/23/24 07:09 09/23/24 07:09 Micro: Microbiology 09/19/24 13:48 Gram Stain - Final Tissue Wound Culture - Final Escherichia coli Strep agalactiae - (group b) 09/20/24 06:20 Urine Culture - Final Urine,Clean Catch A&P Assessment and plan (1) Diabetic ulcer of left foot: (2) Sepsis: (3) Gas gangrene: Plan -Chronic ulceration left foot fifth metatarsal head region, gas gangrene, cellulitis, producing sepsis--improving -Labs and vitals reviewed -WBC 13.48--> 6.05-->4.84 -ESR 79 -CRP 452.8--> 216.2-->151.7 -HR 90 -RR 22 -Tmax 98.6 -Cultures blood?NGTD; group B strep, E. coli -Abx Vanco/meropenem/clindamycin -Diet: N.p.o. at midnight -POD: 2 left foot incision and drainage. Left foot infection has stabilized. -Plan to return to the OR tomorrow, 09/24/2024 for definitive surgical treatment. Patient shows advancing ischemic changes to left fifth digit. I discussed with her that return to surgery will involve fifth digit amputation with partial fifth ray resection. I will continue to perform daily dressing changes and monitor progress of wound. plan for return to the OR on 09/24/2024 provided there is no decline in left foot status prior to this. Left foot is stable at bedside this morning. -Pain Mgmt: Per primary team -Weight bearing: To left foot for transfers only -Dressings: Betadine wet-to-dry dressing applied by podiatry daily. Dressing changed this a.m. by podiatry -Continue current Abx therapy until ID and Sensitivity results -Trend labs -Discharge plan: To be determined -Podiatry will continue to round on patient daily and provide recommendations Attestations Medical Necessity Statement*: See hospitalist note Coding Level of Care Code Acute Code for [facility] Diagnoses Diabetic ulcer of left foot E11.621; L97.529 Sepsis A41.9 Gas gangrene A48.0
[2024-09-23] MEDS: water for injection-sterile 20 ML 1000 ML (16:04)
--- NOTE | 2024-09-23 16:08 | P.PN_ITS ---
Subjective 2 Subjective: Patient was seen this morning, she is sitting up in bed, no fevers, chills, no nausea, no vomiting, abdominal pain, she feels better this morning Vitals/I&O/Wt Last Vital Signs Temp 98.2 F 09/23/24 04:00 Pulse 70 09/23/24 14:06 Resp 18 09/23/24 12:00 BP 100/65 09/23/24 12:00 Pulse Ox 95 09/23/24 12:00 O2 Del Method Room Air 09/23/24 05:00 O2 Flow Rate 5 09/20/24 08:29 09/23/24 09/23/24 09/23/24 06:59 14:59 22:59 Intake Total 1350 / 4157.5 370 / 370 Output Total 500 / 2050 700 / 700 Balance 850 / 2107.5 -330 / -330 Weight last 48 hrs Weight 94.347 kg Physical Exam 2 Const: COMMON NORMALS: no acute distress and patient oriented x3 Resp: COMMON NORMALS: normal respiratory effort, No retractions, No use of accessory muscles and clear to auscultation bilaterally AUSCULTATION: clear to auscultation bilaterally Cardio: COMMON NORMALS: regular rate, regular rhythm, S1 normal heart sound present and S2 normal heart sound present RATE: regular rate RHYTHM: r egular rhythm HEART SOUNDS: S1 normal heart sound present and S2 normal heart sound present GI: COMMON NORMALS: Normal to inspection, nondistended, normoactive bowel sounds present and non-tender Extremity: COMMON NORMALS: no pedal edema NARRATIVE EXTREMITY EXAM: Left foot wrapped Neuro: COMMON NORMALS: patient oriented x3 Psych: COMMON NORMALS: mental status grossly normal Data 09/23/24 07:09 09/23/24 07:09 Micro: Microbiology 09/19/24 13:48 Gram Stain - Final Tissue Wound Culture - Final Escherichia coli Strep agalactiae - (group b) 09/20/24 06:20 Urine Culture - Final Urine,Clean Catch A&P Assessment and plan (1) Diabetic ketoacidosis: (2) Diabetic ulcer of left foot: (3) Sepsis: (4) Septic shock: (5) DM II (diabetes mellitus, type II), controlled: Qualifiers: 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 Findings suspicious for early septic 5th metatarsophalangeal joint. No evidence of osteomyelitis or abscess at this time. 2. Soft tissue air in the lateral forefoot suggestive of infection with a gas-forming organism. -Vancomycin - meropenem -Clindamycin added -Follow blood cultures -Follow tissue cultures -Status post surgical debridement by Dr. Sanchez -N.p.o. midnight for surgical invention tomorrow morning -Podiatry consulted Sepsis with septic shock, resolved -Sepsis features met given elevated lactic acid, 11 CRP, Pro-Junior, tachycardia, tachypnea, source of infection to his left foot -Currently off Levophed -PICC line order placed Complaints of chest pain and shortness of breath resolved -D-dimer elevated 1.4 CT angiogram of the chest negative of PE -Troponin series EKG series no significant delta troponin -Venous ultrasound no DVT Possible UTI with pyelonephritis Abdominal pain complaints, nausea, vomiting -CT scan abdomen pelvis IMPRESSION: 1. Mild bilateral perinephric stranding. No hydronephrosis or renal stones. 2. Increased stool within the colon. No dilated gus -Follow urine culture, blood cultures, antibiotics as above Febrile episodes, resolving -Likely secondary diabetic foot infection as above -She is on Lamictal, escitalopram fairly unlikely for her to be serotonin syndrome -Malignant hyperthermia also felt to be unlikely as CPK is within normal limits, pH within normal limits, pCO2 within normal limits, no muscle rigidity, no muscle spasms, fever has broken -Repeat blood cultures -He is positive for rhinovirus, possibly viral illness playing a role to febrile episodes Rhinovirus -Isolation precautions Type 2 diabetes mellitus Concern for GI bleed -Hemoccult stool positive for blood ? Hemoglobin down to 7.0 -Status post 1 unit PRBC ? No reported bloody black stools - did require Levophed during the night ? Iron studies seem to suggest early onset iron deficiency anemia Hold Lovenox for now ? Monitor hemoglobin -Transfuse if hemoglobin less than 7 Full code Lovenox for DVT prophylaxis currently on hold due to acute anemia, SCDs Protonix for GI prophylaxis Patient requires hospitalization for left foot diabetic ulcer, acute anemia, febrile episodes of UTI GI bleed Attestations 2 Medical Necessity Statement*: Patient requires hospitalization for left foot diabetic ulcer requiring IV antibiotics, acute anemia, febrile episodes, UTI, rhinovirus, sepsis Diagnoses Diabetic ketoacidosis E11.10 Diabetic ulcer of left foot E11.621; L97.529 Sepsis A41.9 Septic shock A41.9; R65.21 Controlled type 2 diabetes mellitus with complication, with long-term current use of insulin E11.8; Z79.4 Diabetes mellitus 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
[2024-09-23 17:11] LABS: Glucose Point of Care 142 mg/dL (70-110)
[2024-09-23] MEDS: atorvastatin 40 mg Tablet 20 MG PO (17:20)
[2024-09-23 21:04] LABS: Glucose Point of Care 132 mg/dL (70-110)
[2024-09-24] VITALS (26 sets, daily range): BP systolic 106–145; BP diastolic 67–84; PULSE 66–92; RESP 14–23; TEMP 36.6–37.1; O2SAT 95–100
[2024-09-24 05:36] LABS: Basophils % 0.3 %; Eosinophils # 0.1 10^3/uL (0.0-0.8); Eosinophils % 1.5 %; Hematocrit 27.4 % (36-47); Lymphocytes # 1.5 10^3/uL (0.8-4.8); Lymphocytes % 24.2 %; Mean Corpuscular Hemoglobin 26.2 pg (27-33); Mean Corpuscular Volume 84.6 fl (85-98); Mean Platelet Volume 12.9 fL (7.4-10.4); Monocytes # 0.6 10^3/uL (0.2-0.9); Monocytes % 10.2 %; Neutrophils # 3.75 10^3/uL (1.8-7.7); Neutrophils % 62.5 %; Nucleated Red Blood Cells % 0 %; Platelet Count 156 10^3/cmm (157-399); Red Blood Count 3.24 10^6/uL (3.85-5.65); Red Cell Distribution Width 15.2 % (12.1-15.1)
[2024-09-24 06:03] LABS: NT Pro B Type Natriuretic Pept 351 pg/mL (0-125)
[2024-09-24 06:16] LABS: Alanine Aminotransferase 14 U/L (0-33); Albumin Level 2.6 g/dL (3.5-5.2); Alkaline Phosphatase 82 U/L (35-105); Anion Gap 14.9 (5-19); Aspartate Amino Transferase 24 U/L (0-32); Blood Urea Nitrogen 3 mg/dL (6-20); C Reactive Protein 83.9 mg/L (0.0-4.9); Calcium 8.5 mg/dL (8.5-10.5); Carbon Dioxide 24 mmol/L (22-29); Chloride 102 mmol/L (98-107); Creatinine Clr Calc Pharmacy 218.3665; Globulin 3.2 g/dL (1.3-4.6); Glomerular Filtration Rate 134.7 mL/min (90-130); Glucose 96 mg/dL (65-115); Magnesium 1.7 mg/dL (1.7-2.3); Osmolality Calculated 280 mOsm/kg (285-295); Phosphorus 3.1 mg/dL (2.5-4.5); Potassium 3.9 mmol/L (3.5-5.1); Sodium 137 mmol/L (136-145); Total Bilirubin 0.2 mg/dL (0.15-1.2); Total Protein 5.8 g/dL (6.6-8.7)
[2024-09-24 07:50] LABS: Glucose Point of Care 83 mg/dL (70-110)
[2024-09-24] MEDS: clindamycin 600 MG/50 ML PREMIX 100 MG IV (08:12)
[2024-09-24] MEDS: meropenem 1,000 mg SDV 1000 MG IVP (08:13)
[2024-09-24] MEDS: vancomycin 1,500 MG/300 ML PIGGYBACK 200 MG IV (08:13)
[2024-09-24] MEDS: pantoprazole 40 mg SDV IVP ×2 (08:14→20:04)
[2024-09-24 08:35] LABS: Glucose Point of Care 89 mg/dL (70-110)
--- NOTE | 2024-09-24 08:57 | PC.NURSE ---
Patient is NPO for surgery and their blood sugar was 89. 30 units of lantus insulin was ordered to be given, Dr. alvarenga was contacted and he stated that it was okay to hold it.
[2024-09-24 11:14] LABS: Glucose Point of Care 78 mg/dL (70-110)
--- NOTE | 2024-09-24 12:06 | W.PM.OPSUD ---
Surgery/Procedure H&P Update DATE OF PROCEDURE: September 24, 2024 DATE H&P PERFORMED: 09/19/24 H&P UPDATE INFORMATION: I have reviewed H&P completed within last 30 days, I have examined patient prior to procedure, No changes to prior documentation and H&P is in [facility] [place] EMR on date indicated PREOP DIAGNOSIS: Osteomyelitis PLANNED PROCEDURE: Operation Date: 09/20/24 07:00 Proposed Procedures p Incision And Drainage(Left) - Moise Sanchez DPM Operation Date: 09/24/24 13:25 Proposed Procedures p Ray Resection Partial Ray Resection(Left) - Moise Sanchez DPM
--- NOTE | 2024-09-24 12:12 | ANES.PREANE2 ---
Pre-Anesthetic Assessment Height/Weight: Height 17 ft 4 in Weight 210 lb 3.2 oz Temp Pulse Resp BP Pulse Ox O2 Del Method O2 Flow Rate 98.4 F 70 17 111/71 98 Room Air 5 09/24/24 08:00 09/24/24 11:00 09/24/24 11:00 09/24/24 12:00 09/24/24 11:00 09/24/24 11:00 09/20/24 08:29 Preop Diagnosis: Osteomyelitis Operation Date: 09/20/24 07:00 Proposed Procedures p Incision And Drainage(Left) - Moise Sanchez DPM Operation Date: 09/24/24 13:25 Proposed Procedures p Ray Resection Partial Ray Resection(Left) - Moise Sanchez DPM Was Beta Geovanni taken within 24 hours: N/A Was Clonidine taken within 24 hours: N/A Last intake: Intake Last Liquid Date 09/19/24 Last Solid Date 09/19/24 Social No alcohol and No tobacco Exam alert, oriented x 3, clear to auscultation bilaterally and regular rate & rhythm Airway Submandibular: within normal limits Cervical ROM: within normal limits Mallampati: Class II Dentition: full Anesthetic Plan ASA status: 3 Anesthesia: General Other: No prior issues with anesthesia NPO since yesterday Patient was taken to the OR last week with osteomyelitis of the foot and DKA Group B strep and E. coli came back positive on cultures.patient is also positive for rhinovirus Prior DKA, glucose 78 this a.m. History of GERD on Protonix Hypertension on losartan Patient does take Trulicity and insulin for her diabetes. Has not had this since she was admitted Patient is afebrile, vitals are stable Plan for GETA Medications/Allergies Home Medications Medication Instructions Recorded Confirmed Last Taken Type aspirin 81 mg tablet,delayed 81 mg PO DAILY 01/11/24 09/19/24 01/09/24 History release dicyclomine 20 mg tablet 20 mg PO TID PRN Spasms 01/11/24 09/19/24 Unknown History dulaglutide 1.5 mg/0.5 mL 1.5 mg SUBCUT Q7D 01/11/24 09/19/24 Unknown History subcutaneous pen injector (Trulicity) empagliflozin 25 mg tablet 25 mg PO DAILY 01/11/24 09/19/24 01/09/24 History (Jardiance) erenumab-aooe 140 mg/mL 140 mg SUBCUT Q30D 01/11/24 09/19/24 Unknown History subcutaneous auto-injector (Aimovig Autoinjector) ergocalciferol (vitamin D2) 1,250 1,250 mcg PO DAILY 01/11/24 09/19/24 01/09/24 History mcg (50,000 unit) capsule (Vitamin D2) famotidine 40 mg tablet 40 mg PO BID 01/11/24 09/19/24 01/09/24 History ferrous sulfate 137 mg (45 mg 45 mg PO BID 01/11/24 09/19/24 01/09/24 History iron) tablet,extended release hydroxyzine HCl 25 mg tablet 25 mg PO TID PRN Anxiety 01/11/24 09/19/24 Unknown History insulin glargine 100 unit/mL (3 See Rx Instructions .Route .COMPLEX 01/11/24 09/19/24 01/09/24 History mL) subcutaneous pen (Lantus Solostar U-100 Insulin) insulin lispro 100 unit/mL See Rx Instructions .Route .COMPLEX 01/11/24 09/19/24 01/09/24 History subcutaneous pen (Humalog KwikPen (U-100) Insulin) lactulose 10 gram/15 mL oral 15 ml PO DAILY 01/11/24 09/19/24 01/09/24 History solution lamotrigine 100 mg tablet 200 mg PO BID 01/11/24 09/19/24 01/09/24 History losartan 50 mg tablet 50 mg PO DAILY 01/11/24 09/19/24 01/09/24 History magnesium oxide 400 mg PO BID 01/11/24 09/19/24 01/09/24 History metformin 500 mg tablet,extended 1,000 mg PO BID 01/11/24 09/19/24 01/09/24 History release 24 hr ondansetron 4 mg disintegrating 4 mg PO Q8H PRN Nausea 01/11/24 09/19/24 Unknown History tablet pravastatin 20 mg tablet 20 mg PO QPM 01/11/24 09/19/24 01/09/24 History prucalopride 2 mg tablet 2 mg PO DAILY 01/11/24 09/19/24 01/09/24 History (Motegrity) rizatriptan 10 mg tablet 10 mg PO Q2H PRN Headache 01/11/24 09/19/24 Unknown History escitalopram oxalate 10 mg tablet 10 mg PO DAILY anxiety #30 tabs 02/07/24 09/19/24 Unknown Rx (Lexapro) pregabalin 50 mg capsule 50 mg PO TID neuropathy/migraines 04/10/24 09/19/24 Unknown Rx #90 caps hydrocodone 5 mg-acetaminophen 325 1 tab PO Q8H PRN pain #7 tabs 04/29/24 09/19/24 Unknown Rx mg tablet metoclopramide HCl 10 mg tablet 10 mg PO QID #120 tabs 06/22/24 09/19/24 Unknown Rx blood-glucose meter,continuous #1 ea 07/17/24 09/19/24 Unknown Rx (FreeStyle Solo 3 [place]) blood-glucose sensor (FreeStyle #3 ea 07/17/24 09/19/24 Unknown Rx Solo 3 Sensor device) pantoprazole 40 mg tablet,delayed 40 mg PO BID PRN acid reflux #60 08/20/24 09/19/24 Unknown Rx release tabs azithromycin 250 mg tablet See Rx Instructions .Route .COMPLEX 09/19/24 09/19/24 Unknown History linezolid 600 mg tablet 600 mg PO BID #14 tabs 09/19/24 09/19/24 Unknown Rx metronidazole 500 mg tablet 500 mg PO Q8H #21 tabs 09/19/24 09/19/24 Unknown Rx sulfamethoxazole 800 1 tab PO [id number] 09/19/24 09/19/24 Unknown History mg-trimethoprim 160 mg tablet Allergies Allergy/AdvReac Type Severity Reaction Status Date / Time lisinopril Allergy ADR-Cough Verified 09/19/24 10:05 Current Medications Generic Name Dose Route Start Last Admin Trade Name Freq PRN Reason Stop Dose Admin Acetaminophen 650 mg 09/19/24 14:19 09/23/24 02:05 Acetaminophen 325 Mg Tablet PO 650 mg Q6H PRN Administration Mild/Mod Pain Or Temp >/= 101 Aspirin 81 mg 09/20/24 09:00 09/23/24 09:23 Aspirin 81 Mg Ec Tablet PO 81 mg DAILY ADRIANA Administration Atorvastatin Calcium 20 mg 09/19/24 18:00 09/23/24 17:20 Atorvastatin 40 Mg Tablet PO 20 mg QPM ADRIANA Administration Enoxaparin Sodium 40 mg 09/19/24 14:30 09/20/24 13:41 Enoxaparin 40 Mg/0.4 Ml Syringe SUBCUT 40 mg Q24H ADRIANA Administration Escitalopram Oxalate 10 mg 09/20/24 09:00 09/23/24 09:23 Escitalopram 10 Mg Tablet PO 10 mg DAILY ADRIANA Administration Hydroxyzine Pamoate 25 mg 09/19/24 14:33 09/22/24 22:26 Hydroxyzine 25 Mg Capsule PO 25 mg TID PRN Administration Anxiety Clindamycin HCl/Dextrose 600 mg in 50 mls @ 100 mls/hr 09/20/24 08:00 09/24/24 08:59 Cleocin IV Infused Q8H [facility] Infusion Protocol Norepinephrine Bitartrate 4 mg in 250 mls @ 0 mls/hr 09/20/24 16:00 09/21/24 04:00 Levophed IV 0 mcg/min .Q0M ADRIANA 0 mls/hr Titration Protocol Per Protocol Vancomycin HCl 1,500 mg in 300 mls @ 200 mls/hr 09/22/24 00:00 09/24/24 08:13 Vancocin IV 200 mls/hr Q8H ADRIANA Administration Insulin Glargine 30 unit 09/21/24 09:45 09/24/24 08:57 Insulin Glargine 100 Units/1 Ml SUBCUT Not Given Q12H ADRIANA Insulin Human Lispro 0 unit 09/21/24 12:00 09/24/24 11:17 Insulin Lispro 100 Unit/1 Ml SUBCUT Not Given WM&BEDTIME [facility] Protocol Lamotrigine 200 mg 09/19/24 18:00 09/23/24 17:20 Lamotrigine 100 Mg Tablet PO 200 mg BID ADRIANA Administration Meropenem 1,000 mg 09/20/24 16:00 09/24/24 08:13 Meropenem 1,000 Mg Sdv IVP 1,000 mg Q8H ADRIANA Administration Protocol Metoclopramide HCl 5 mg 09/19/24 14:19 09/20/24 21:17 Metoclopramide 5 Mg/Ml Sdv 2 Ml IVP 5 mg Q6H PRN Administration NAUSEA AND VOMITING Ondansetron HCl 4 mg 09/19/24 14:19 09/19/24 20:04 Ondansetron 2 Mg/Ml Sdv 2 Ml IVP 4 mg Q8H PRN Administration vomiting, or N/V if npo Pantoprazole Sodium 40 mg 09/21/24 08:00 09/24/24 08:14 Pantoprazole 40 Mg Sdv IVP 40 mg Q12H ADRIANA Administration Pregabalin 50 mg 09/19/24 15:00 09/23/24 21:06 Pregabalin 50 Mg Capsule PO 50 mg TID ADRIANA Administration Sucralfate 1 gm 09/21/24 08:00 09/24/24 01:09 Sucralfate 1 Gm/10 Ml Oral Liq Udc PO Not Given Q6H ADRIANA PFSH Anesthesia Medical History History of abnormal mammogram 02/07/2024 patient reported abnormal mammogram, time for 6-month follow-up Chronic GERD Diabetic retinopathy associated with controlled type 2 diabetes mellitus Anxiety and depression Dyslipidemia associated with type 2 diabetes mellitus Migraines DM II (diabetes mellitus, type II), controlled Gastroparesis Degenerative disc disease History of PCOS HTN (hypertension) with goal to be determined Diabetic neuropathy IBS (irritable bowel syndrome) Broken nose Fatty liver Surgical History History of cholecystectomy Family History Father Diabetes Mother Diabetes Fatty liver Social History Smoking and tobacco/nicotine status: former use of tobacco/nicotine Quit status (tobacco/nicotine): has quit using Alcohol intake: former Substance/Drug Use: never Data Anesthesia 09/24/24 04:34 09/24/24 04:34 Short CBC 09/23/24 09/24/24 Range/Units 07:09 04:34 WBC 6.06 6.00 (3.29-11.43) 10^3/uL Hgb 8.30 L 8.50 L (11.27-16.99) g/dL Hct 26.6 L 27.4 L (36-47) % MCV 85.0 84.6 L (85-98) fl Plt Count 136 L 156 L (157-399) 10^3/cmm Neut % (Auto) 64.6 62.5 % Neut # (Auto) 3.92 3.75 (1.8-7.7) 10^3/uL BMP 09/23/24 09/24/24 07:09 04:34 Sodium 135 L 137 Potassium 3.6 3.9 Chloride 104 102 Carbon Dioxide 23 24 BUN 2 L 3 L Creatinine 0.5 0.5 Glucose 138 H 96 Calcium 8.7 8.5 Cardiac Enzymes 09/23/24 09/24/24 Range/Units 07:09 04:34 Creatine Kinase 66 (26-192) U/L NT-Pro-B Natriuret Pep 351 H (0-125) pg/mL Liver Function 09/23/24 09/24/24 Range/Units 07:09 04:34 Total Bilirubin 0.3 0.2 (0.15-1.2) mg/dL AST 26 24 (0-32) U/L ALT 12 14 (0-33) U/L Alkaline Phosphatase 83 82 (35-105) U/L Albumin 2.6 L 2.6 L (3.5-5.2) g/dL Coags 09/23/24 09/24/24 07:09 04:34 C-Reactive Protein 102.8 H 83.9 H Microbiology 09/19/24 11:05 Blood Culture - Final Blood NO GROWTH AFTER 5 DAYS 09/19/24 10:51 Blood Culture - Final Blood NO GROWTH AFTER 5 DAYS Cardiac Studies: No Data to Display
[2024-09-24 12:40] LABS: Glucose Point of Care 78 mg/dL (70-110)
[2024-09-24] MEDS: BUPivacaine 0.5% INJ 10 mL 20 ML INJECTION (13:08)
--- NOTE | 2024-09-24 13:20 | PM.OP ---
Operative Report Date of procedure: September 24, 2024 Surgeon: Moise Sanchez DPM Procedure: Date of procedure: 09/24/2024 Pre-op diagnosis: Left foot fifth digit gangrene Post-op diagnosis: Same Post-op findings: Left foot fifth digit gangrene. Septic fifth metatarsal phalangeal joint. Clear proximal margin of fifth metatarsal resection Procedure done: Partial fifth ray resection left foot Implants: None Specimens removed: Partial fifth ray left foot Surgeon: Dr. Moise Sanchez DPM Foreign Student Adviser Teacher: Raimundo Estimated blood loss: 10 cc Tourniquet time: No tourniquet used Complications: None The patient presented with a severe foot infection involving left 5th digit, characterized by erythema, swelling, and drainage. The patient subsequently underwent left foot incision and drainage. She returns to the operating room today for definitive treatment of left foot fifth digit gangrene. The patient has been NPO since midnight. The history has been reviewed and the history and physical is current. The signed consent was confirmed and placed in the patient chart. Patient imaging has been reviewed and is consistent with the diagnosis. Under mild sedation, the patient was brought into the operating room and placed on the table in the supine position. Patient is receiving antibiotics around the clock on the floor, Therefore, additional antibiotic prophylaxix was not administered. General sedation was then performed by the anesthesiateam. A pneumatic tourniquet was then placed about the left ankle but was not inflated. The operative extremity was then prepped and draped in the usual fashion. After prep, the following procedure was then performed. Attention was directed to the left foot where a gangrenous, ischemic fifth digit was visualized with eschar enveloping the fifth metatarsal phalangeal joint region circumferentially. A #15 blade was used to make a racquet style incision around the fifth digit down to level of bone. Dissection was carried out to expose the fifth metatarsal. A sagittal bone saw was used to resect the fifth metatarsal at the level of the midshaft. The fifth digit and distal portion of fifth metatarsal was passed from the operative field. The fifth metatarsal phalangeal joint was noted to have mild purulence consistent with septic joint. The remaining bone tissue appeared healthy and viable. A rongeur was used to remove remaining devitalized tissue surrounding the site of amputation. The site was next irrigated with copious amounts of sterile saline via pulse lavage. Next, the proximal aspect of the incision was closed with 2-0 Prolene.. The distal portion of the amputation site was unable to be closed due to an adequate soft tissue coverage. The site was packed with half-inch iodoform packing gauze before being dressed with 4 x 4 gauze, ABD pad, Kerlix, Tank. Hemostasis was achieved via electrocautery prior to applying the dressing. The patient tolerated the procedure and anesthesia well and without complication. The patient was transported from the operating room to the recovery room with vital signs stable and vascular status intact to all digits of the left foot. Thepatient was instructed to remain minimally weightbearing for in postop shoe to the operative extremity, to keep surgical dressing clean, dry and intact. The patient will be transferred back to the floor once anesthesia criteria is met. I will continue to round on and follow the patient in the inpatientsetting and provide recommendations to stabilize the patient for discharge.
--- NOTE | 2024-09-24 13:36 | ANE.PACU2 ---
Inpatient post-anesthesia follow up: Airway intact: Yes Vital signs: Temperature 97.8 F Pulse Rate 78 Respiratory Rate 14 Blood Pressure 111/75 Pulse Oximetry 98 Oxygen Delivery Me thod Room Air Oxygen Flow Rate 5 Fraction of Inspir ed Oxygen Hydration adequate: Yes Nausea and vomiting: No Pain level: 1 Mental status: Baseline
--- NOTE | 2024-09-24 13:46 | PC.NURSE ---
Patient went for surgery at 1200. Patient returned from surgery at 1340. No complications occurred per report from OR.
[2024-09-24 13:57] LABS: Glucose Point of Care 90 mg/dL (70-110)
[2024-09-24] MEDS: pregabalin 50 mg Capsule PO ×2 (13:57→20:07)
[2024-09-24] MEDS: aspirin 81 mg EC Tablet PO (13:57)
[2024-09-24] MEDS: enoxaparin 40 mg/0.4 mL Syringe SUBCUT (13:57)
[2024-09-24] MEDS: lamoTRIgine 100 mg Tablet 200 MG PO ×2 (13:57→17:31)
[2024-09-24] MEDS: escitalopram 10 mg Tablet PO (13:57)
[2024-09-24] MEDS: sucralfate 1 gm/10 mL Oral Liq UDC PO ×2 (13:57→20:04)
[2024-09-24] MEDS: cefTRIAXone 2,000 mg SDV 2000 MG IVP (14:42)
[2024-09-24] MEDS: atorvastatin 40 mg Tablet 20 MG PO (17:31)
[2024-09-24 17:36] LABS: Glucose Point of Care 203 mg/dL (70-110)
[2024-09-24] MEDS: insulin lispro 100 unit/1 mL SUBCUT ×2 (17:38→21:13)
--- NOTE | 2024-09-24 17:45 | PM.PN ---
Subjective Subjective: Patient was seen this morning, she has no complaints, awaiting surgical intervention, no fevers overnight, no chills Vitals/I&O/Wt Last Vital Signs Temp 97.8 F 09/24/24 14:00 Pulse 74 09/24/24 16:00 Resp 16 09/24/24 16:00 BP 106/69 09/24/24 16:00 Pulse Ox 96 09/24/24 16:00 O2 Del Method Room Air 09/24/24 16:00 O2 Flow Rate 5 09/24/24 13:40 09/24/24 09/24/24 09/24/24 06:59 14:59 22:59 Intake Total 350 / 1090 350 / 350 Output Total 0 / 0 Balance 350 / -210 350 / 350 Weight last 48 hrs Weight 95.345 kg Physical Exam Const: COMMON NORMALS: no acute distress and patient oriented x3 Resp: COMMON NORMALS: normal respiratory effort, No retractions, No use of accessory muscles and clear to auscultation bilaterally AUSCULTATION: clear to auscultation bilaterally Cardio: COMMON NORMALS: regular rate, regular rhythm, S1 normal heart sound present and S2 normal heart sound present RATE: regular rate RHYTHM: regular rhythm HEART SOUNDS: S1 normal heart sound present and S2 normal heart sound present GI: COMMON NORMALS: Normal to inspection, nondistended, normoactive bowel sounds present and non-tender Extremity: COMMON NORMALS: no pedal edema Neuro: COMMON NORMALS: patient oriented x3 Psych: COMMON NORMALS: mental status grossly normal Data 09/24/24 04:34 09/24/24 04:34 Micro: Microbiology 09/19/24 11:05 Blood Culture - Final Blood NO GROWTH AFTER 5 DAYS 09/19/24 10:51 Blood Culture - Final Blood NO GROWTH AFTER 5 DAYS A&P Assessment and plan (1) Diabetic ketoacidosis: (2) Diabetic ulcer of left foot: (3) Sepsis: (4) Septic shock: (5) DM II (diabetes mellitus, type II), controlled: Qualifiers: 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 Findings suspicious for early septic 5th metatarsophalangeal joint. No evidence of osteomyelitis or abscess at this time. 2. Soft tissue air in the lateral forefoot suggestive of infection with a gas-forming organism. -Vancomycin - meropenem -Clindamycin added -Follow blood cultures -Follow tissue cultures -Status post surgical debridement by Dr. Sanchez -N.p.o. midnight for surgical invention today -Podiatry consulted Sepsis with septic shock, resolved -Sepsis features met given elevated lactic acid, 11 CRP, Pro-Junior, tachycardia, tachypnea, source of infection to his left foot -Currently off Levophed -PICC line order placed Complaints of chest pain and shortness of breath resolved -D-dimer elevated 1.4 CT angiogram of the chest negative of PE -Troponin series EKG series no significant delta troponin -Venous ultrasound no DVT Possible UTI with pyelonephritis Abdominal pain complaints, nausea, vomiting -CT scan abdomen pelvis IMPRESSION: 1. Mild bilateral perinephric stranding. No hydronephrosis or renal stones. 2. Increased stool within the colon. No dilated gus -Follow urine culture, blood cultures, antibiotics as above Febrile episodes, resolving -Likely secondary diabetic foot infection as above -She is on Lamictal, escitalopram fairly unlikely for her to be serotonin syndrome -Malignant hyperthermia also felt to be unlikely as CPK is within normal limits, pH within normal limits, pCO2 within normal limits, no muscle rigidity, no muscle spasms, fever has broken -Repeat blood cultures -He is positive for rhinovirus, possibly viral illness playing a role to febrile episodes Rhinovirus -Isolation precautions Type 2 diabetes mellitus Concern for GI bleed -Hemoccult stool positive for blood ? Hemoglobin down to 7.0 -Status post 1 unit PRBC ? No reported bloody black stools - did require Levophed during the night ? Iron studies seem to suggest early onset iron deficiency anemia Reviewed Lovenox resumed today for DVT prophylaxis, monitor hemoglobin ? Monitor hemoglobin -Transfuse if hemoglobin less than 7 Full code Lovenox for DVT prophylaxis today, monitor hemoglobin, SCDs Protonix for GI prophylaxis Patient requires hospitalization for left foot diabetic ulcer, acute anemia, febrile episodes of UTI GI bleed Attestations Medical Necessity Statement*: Patient requires hospitalization for left foot diabetic ulcer, requiring IV antibiotics, further surgical debridement, febrile episodes, UTI, concerns for GI bleed, Diagnoses Diabetic ketoacidosis E11.10 Diabetic ulcer of left foot E11.621; L97.529 Sepsis A41.9 Septic shock A41.9; R65.21 Controlled type 2 diabetes mellitus with complication, with long-term current use of insulin E11.8; Z79.4 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
[2024-09-24 18:53] LABS: Hematocrit 29.3 % (36-47)
[2024-09-24] MEDS: insulin glargine 100 units/1 mL 30 UNIT SUBCUT (21:13)
[2024-09-24 21:16] LABS: Glucose Point of Care 229 mg/dL (70-110)
[2024-09-24 22:18] LABS: Hematocrit 29.4 % (36-47)
[2024-09-25] VITALS (18 sets, daily range): BP systolic 120–164; BP diastolic 66–94; PULSE 62–80; RESP 15–22; TEMP 36.1–36.7; O2SAT 96–100
[2024-09-25] MEDS: sucralfate 1 gm/10 mL Oral Liq UDC PO ×3 (01:56→13:44)
--- NOTE | 2024-09-25 04:53 | PC.NURSE ---
Report given to Christine BLACK, no questions asked. Patient transported via wheelchair with surgical mask on to room 261. Patient to let family know of room change.
[2024-09-25 06:11] LABS: Basophils % 0.2 %; Eosinophils # 0.1 10^3/uL (0.0-0.8); Eosinophils % 0.8 %; Hematocrit 28.5 % (36-47); Lymphocytes # 1.1 10^3/uL (0.8-4.8); Lymphocytes % 16.6 %; Mean Corpuscular HGB Conc 31.2 g/dL (30-55); Mean Corpuscular Hemoglobin 26.4 pg (27-33); Mean Corpuscular Volume 84.6 fl (85-98); Mean Platelet Volume 11.8 fL (7.4-10.4); Monocytes # 0.6 10^3/uL (0.2-0.9); Monocytes % 8.8 %; Nucleated Red Blood Cells % 0 %; Platelet Count 228 10^3/cmm (157-399); Red Blood Count 3.37 10^6/uL (3.85-5.65); Red Cell Distribution Width 15.1 % (12.1-15.1); White Blood Count 6.38 10^3/uL (3.29-11.43)
[2024-09-25 06:18] LABS: Glucose Point of Care 181 mg/dL (70-110)
[2024-09-25 06:33] LABS: Alanine Aminotransferase 14 U/L (0-33); Alkaline Phosphatase 90 U/L (35-105); Anion Gap 15.2 (5-19); Aspartate Amino Transferase 17 U/L (0-32); Blood Urea Nitrogen 4 mg/dL (6-20); Calcium 8.6 mg/dL (8.5-10.5); Carbon Dioxide 26 mmol/L (22-29); Chloride 102 mmol/L (98-107); Creatinine Clr Calc Pharmacy 218.3665; Glomerular Filtration Rate 134.7 mL/min (90-130); Glucose 178 mg/dL (65-115); Magnesium 1.8 mg/dL (1.7-2.3); Osmolality Calculated 289 mOsm/kg (285-295); Phosphorus 2.1 mg/dL (2.5-4.5); Potassium 4.2 mmol/L (3.5-5.1); Sodium 139 mmol/L (136-145); Total Bilirubin 0.3 mg/dL (0.15-1.2)
[2024-09-25 06:39] LABS: Procalcitonin 0.04 ng/mL (0-0.5)
--- NOTE | 2024-09-25 07:39 | P.PN_ITS ---
Subjective 2 Subjective: Patient seen at bedside this morning. Postop day 1 from left foot partial fifth ray resection. No overnight events. Doing well. Vitals/I&O/Wt Last Vital Signs Temp 97 F L 09/25/24 04:15 Pulse 70 09/25/24 05:58 Resp 18 09/25/24 04:15 BP 148/91 09/25/24 04:15 Pulse Ox 100 09/25/24 04:15 O2 Del Method Room Air 09/25/24 04:15 O2 Flow Rate 5 09/24/24 13:40 09/24/24 09/25/24 09/25/24 22:59 06:59 14:59 Intake Total 240 / 890 240 / 1130 Output Total 450 / 450 700 / 1150 Balance -210 / 440 -460 / -20 Weight last 48 hrs Weight 210 lb Weight 210 lb 3.2 oz Physical Exam 2 Narrative: BELOW IS A FOCUSED LOWER EXTREMITY EXAM GENERAL: A&O x 3 VASCULAR: DP/PT pulses palpable 2/4 with CFT intact, <3seconds to distal digits DERMATOLOGICAL: Left foot surgical dressing clean, dry, intact with no strikethrough noted. MUSCULOSKELETAL: No pain with palpation of kelsie-incisional area, squeezing of forefoot, range of motion of ankle joint NEUROLOGICAL: Neurological sensation to the affected foot and ankle is diminished through L4-S1 dermatomes via 10g SWMF, diminished sensation extends proximally to the level of the ankle IMAGING: X-rays of left foot taken postoperatively yesterday show resolution of soft tissue emphysema with surgical packing in place. 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 coli -Abx Vanco/meropenem/clindamycin -Diet: Okay for diet -POD: 1 left foot partial fifth ray resection. No further surgical intervention per podiatry at this point. -Pain Mgmt: Per primary team -Weight bearing: To left foot for transfers only -Dressings: Surgical dressing to be left clean, dry, intact -Continue current Abx therapy until ID and Sensitivity results -Trend labs -Discharge plan: Okay to discharge home from podiatry standpoint. Due to persistent erythema visualized intraoperatively, recommend continued IV antibiotics in the outpatient setting. This was discussed with hospitalist. Patient is to leave surgical dressing clean, dry, intact. Follow-up with Dr. Sanchez in the outpatient setting within 1 week of discharge from hospital. -Podiatry will continue to round on patient daily and provide recommendations Attestations 2 Medical Necessity Statement*: See hospitalist note Coding Level of Care Code Acute Code for Chg Fwd Diagnoses Diabetic ulcer of left foot E11.621; L97.529 Sepsis A41.9 Gas gangrene A48.0
[2024-09-25] MEDS: aspirin 81 mg EC Tablet PO (09:49)
[2024-09-25] MEDS: pantoprazole 40 mg SDV IVP (09:49)
[2024-09-25] MEDS: pregabalin 50 mg Capsule PO (09:49)
[2024-09-25] MEDS: escitalopram 10 mg Tablet PO (09:49)
[2024-09-25] MEDS: lamoTRIgine 100 mg Tablet 200 MG PO (09:49)
[2024-09-25] MEDS: insulin lispro 100 unit/1 mL SUBCUT (09:50)
[2024-09-25] MEDS: insulin glargine 100 units/1 mL 30 UNIT SUBCUT (09:50)
[2024-09-25 10:40] LABS: Hematocrit 28.6 % (36-47)
--- NOTE | 2024-09-25 10:40 | P.DS_ITS ---
Discharge Providers Date of Admission: 09/19/24 12:45 Date of Discharge: September 25, 2024 Attending Provider at Admission: Jerod Gustafson MD Attending Provider at Discharge: Jerod Gustafson MD Primary Care Provider: Pako Yu MD Diagnoses at Discharge Discharge Diagnosis (1) Diabetic ulcer of left foot: Status: Acute (2) Sepsis: Status: Acute (3) Gas gangrene: Status: Acute Reason for Visit Reason for Visit: blood sugar high Hospital Course Hospital Course Madison Moya is a 43 year old female with a past medical history of type 2 diabetes mellitus, hypertension, diabetic neuropathy, GERD, dyslipidemia, migraines, PCOS, irritable bowel syndrome, who has a history of left foot diabetic ulcer manage to wound care who presents to [facility] due to nausea, vomiting, chest pain, shortness of breath, abdominal pain for the last few days. In addition she is at increased swelling around her left foot diabetic ulcer. Currently patient is alert oriented x 3, following all commands, she reports feeling nauseous, diffuse abdominal pain, vomiting, poor appetite, she has been able to check her sugar in the last few days, she also been experiencing chest pain, complaint shortness of breath, she presented to wound care this morning, her blood sugars were read as high, diabetic ulcer, debrided by wound care, denies a cardiovascular history, denies a history of strokes, no history of COPD, does have diabetes, This is a 43-year-old female who presents [facility] for left foot diabetic ulcer, with sepsis, septic shock, with concerns for left foot fifth digit gangrene, with evidence of septic fifth metatarsophalangeal joint MRI findings as below - MR/MR foot LT wo con* [id number] IMPRESSION: 1. Findings suspicious for early septic 5th metatarsophalangeal joint. No evidence of osteomyelitis or abscess at this time. 2. Soft tissue air in the lateral forefoot suggestive of infection with a gas-forming organism. -Admitted to the ICU, required broad-spectrum antibiotic therapy, Levophed, -She initially received a debridement by Dr. Wesley, then subsequently went for partial fifth ray resection left foot -Patient tolerated surgery well -Overall clinically improved, off pressors, remained afebrile, -Repeat blood cultures have been negative -Wound cultures growing E. coli, strep agalactiae group B -PICC line in place -Will be discharged on 13 days of IV Rocephin 2 g IV every 24 hours -Follow-up with primary care provider -Follow-up with Dr. Hallman as outpatient she is weightbearing as tolerated, follow-up in a week for dressing change -Patient was advised if she has any fevers, chills, increased drainage from surgical site go to the emergency room -Discharged on hydrocodone to be used sparingly for pain, do not drive or operate machinery or drink while taking medication Is also concerns for UTI with pyelonephritis during hospitalization, discharged with antibiotics as above Rhinovirus during the hospitalization, conservatively managed On admission patient had diabetic ketoacidosis, managed on insulin drip, IV fluid therapy, DKA protocol, once anion gap closed, blood sugars are reasonable she was transition to Lantus 30 units twice daily and a moderate dose insulin sliding scale Patient's hospitalization was complicated by concern for slow GI bleed, Hemoccult positive for blood, no reported black or tarry stools, no significant hemodynamic compromise during this episode, did require 1 unit PRBC, her hemoglobin has remained stable during hospitalization at 8.9, discharged on Protonix and Carafate, avoid NSAIDs, follow-up with general surgery in a month for consideration of EGD and colonoscopy. Patient was advised if she were to have any black or tarry stools to be to go to emergency room Physical Exam Const: COMMON NORMALS: no acute distress and patient oriented x3 Resp: COMMON NORMALS: normal respiratory effort, No retractions, No use of accessory muscles and clear to auscultation bilaterally AUSCULTATION: clear to auscultation bilaterally Cardio: COMMON NORMALS: regular rate, regular rhythm, S1 normal heart sound present and S2 normal heart sound present RATE: regular rate RHYTHM: regular rhythm HEART SOUNDS: S1 normal heart sound present and S2 normal heart sound present GI: COMMON NORMALS: Normal to inspection, nondistended, normoactive bowel s ounds present and non-tender Extremity: COMMON NORMALS: no pedal edema Neuro: COMMON NORMALS: patient oriented x3 Psych: COMMON NORMALS: mental status grossly normal Discharge Data Studies Completed and Pending Completed Studies During Hospitalization Category Date Time Status CT angio chest w abd pel w con Stat Cat Scan 09/21/24 01:20 Completed CXRP [XR chest 1V portable [id number]] Routine Exams 09/20/24 17:28 Completed XR ankle LT 2V [id number] Routine Exams 09/20/24 11:56 Completed XR chest 1V portable [id number] Routine Exams 09/19/24 12:56 Completed XR foot LT min 3V* [id number] Routine Exams 09/20/24 11:56 Completed XR foot LT min 3V* [id number] Stat Exams 09/19/24 10:23 Completed MR foot LT wo con* [id number] Routine MRI 09/19/24 14:19 [place] [id number] Stat Ultrasound 09/19/24 12:47 Completed Pending at discharge Category Date Time Status Blood Culture Stat Lab 09/20/24 14:40 Results C Reactive Protein AM LABS Lab 09/26/24 04:00 Ordered Complete Blood Count w/Auto AM LABS Lab 09/26/24 04:00 Ordered Comprehensive Metabolic Panel AM LABS Lab 09/26/24 04:00 Ordered Fibrinogen Degradation Product Routine Lab 09/20/24 13:44 Received Magnesium AM LABS Lab 09/26/24 04:00 Ordered Phosphorus AM LABS Lab 09/26/24 04:00 Ordered Procalcitonin AM LABS Lab 09/26/24 04:00 Ordered Vancomycin Trough Timed Lab 09/26/24 05:00 Ordered Pathology: Surgical [PTH] Routine Pth 09/24/24 13:20 Received Radiology Impressions Foot MRI 09/19/24 14:19 IMPRESSION: 1. Findings suspicious for early septic 5th metatarsophalangeal joint. No evidence of osteomyelitis or abscess at this time. 2. Soft tissue air in the lateral forefoot suggestive of infection with a gas-forming organism. Ankle X-Ray 09/20/24 11:56 IMPRESSION: Visualized soft tissues are otherwise within normal limits. No evidence of subcutaneous air. Foot X-Ray 09/20/24 11:56 IMPRESSION: Recent postprocedural changes about the base of the 5th digit, with soft tissue swelling, and with probable subcutaneous air. This appears somewhat obscured by overlying bandaging. Chest X-Ray 09/20/24 17:28 IMPRESSION: Right PICC line in proper positioning. Chest/Abdomen/Pelvis CT 09/21/24 01:20 IMPRESSION: 1. Minimal bibasilar atelectasis. 2.5 cm bleb in the left lung base. 2. No pulmonary emboli IMPRESSION: 1. Mild bilateral perinephric stranding. No hydronephrosis or renal stones. 2. Increased stool within the colon. No dilated bowel. Laboratory Results WBC 6.38 10^3/uL (3.29-11.43) 09/25/24 05:56 Corrected WBC Cancelled 09/21/24 03:54 RBC 3.37 10^6/uL (3.85-5.65) L 09/25/24 05:56 Hgb 8.90 g/dL (11.27-16.99) L 09/25/24 10:32 Hct 28.6 % (36-47) L 09/25/24 10:32 MCV 84.6 fl (85-98) L 09/25/24 05:56 MCH 26.4 pg (27-33) L 09/25/24 05:56 MCHC 31.2 g/dL (30-55) 09/25/24 05:56 RDW 15.1 % (12.1-15.1) 09/25/24 05:56 Plt Count 228 10^3/cmm (157-399) D 09/25/24 05:56 MPV 11.8 fL (7.4-10.4) H 09/25/24 05:56 Gran % Cancelled 09/21/24 03:54 Neut % (Auto) 72.0 % 09/25/24 05:56 Lymph % (Auto) 16.6 % 09/25/24 05:56 [place] % (Auto) 8.8 % 09/25/24 05:56 Eos % (Auto) 0.8 % 09/25/24 05:56 Baso % (Auto) 0.2 % 09/25/24 05:56 Neut # (Auto) 4.60 10^3/uL (1.8-7.7) 09/25/24 05:56 Lymph # (Auto) 1.1 10^3/uL (0.8-4.8) 09/25/24 05:56 [place] # (Auto) 0.6 10^3/uL (0.2-0.9) 09/25/24 05:56 Eos # (Auto) 0.1 10^3/uL (0.0-0.8) 09/25/24 05:56 Baso # (Auto) 0.0 10^3/uL (0.0-0.1) 09/25/24 05:56 Absolute Gran (auto) Cancelled 09/21/24 03:54 Nucleated RBC % (auto) 0 % 09/25/24 05:56 Nucleated RBCs # 0.0 /100WBC 09/25/24 05:56 ESR 79 mm/hr (0-15) H 09/19/24 10:51 PT 15.10 SECONDS (12.1-14.9) H 09/20/24 13:31 INR 1.11 (0.8-1.2) 09/20/24 13:31 APTT 35.2 SECONDS (23.9-36.7) 09/20/24 13:31 Fibrinogen 864 mg/dL (174-498) H 09/20/24 13:31 D-Dimer 1.40 ug/mLFEU (0-0.59) H 09/20/24 13:31 Specimen Type Arterial 09/20/24 12:10 Sample Site Brachial, left 09/20/24 12:10 ABG pH 7.40 (7.35-7.45) 09/20/24 12:10 ABG pCO2 24.6 mmHg (35-45) L 09/20/24 12:10 ABG pO2 70.4 mmHg (80.0-100.0) L 09/20/24 12:10 ABG PO2/FiO2 Ratio 461 09/19/24 10:28 ABG HCO3 15.1 mmol/L (22-26) L 09/20/24 12:10 ABG O2 Saturation 96.7 09/20/24 12:10 ABG Base Excess -8.5 mmol/L (-2.0-2.0) L 09/20/24 12:10 Johnny Test N/a 09/20/24 12:10 A-a O2 Gradient 6.3 mmHg (5-10) 09/20/24 12:10 Hematocrit 28.1 % (37-47) L 09/20/24 12:10 Hgb O2 Saturation 94.3 % (95-100) L 09/20/24 12:10 Carboxyhemoglobin 1.5 %THgb (0.4-20.1) 09/20/24 12:10 Methemoglobin 1.0 % (0.4-1.5) 09/20/24 12:10 Total Hemoglobin 9.2 g/dL (12-16) L 09/20/24 12:10 Sodium 132.0 mmol/L (131-143) 09/20/24 12:10 Potassium 4.0 mmol/L (3.5-5.0) 09/20/24 12:10 Glucose 253.0 mg/dL (70-115) H 09/20/24 12:10 Ionized Calcium 1.2 mmol/L (1.1-1.4) 09/20/24 12:10 O2 Delivery Device Nc 09/20/24 12:10 FiO2 21.0 % 09/19/24 10:28 Director New Product ID Gd 09/20/24 12:10 Sodium 139 mmol/L (136-145) 09/25/24 05:56 Potassium 4.2 mmol/L (3.5-5.1) 09/25/24 05:56 Chloride 102 mmol/L (98-107) 09/25/24 05:56 Carbon Dioxide 26 mmol/L (22-29) 09/25/24 05:56 Anion Gap 15.2 (5-19) 09/25/24 05:56 BUN 4 mg/dL (6-20) L 09/25/24 05:56 Creatinine 0.5 mg/dL (0.5-0.9) 09/25/24 05:56 GFR Calculation 134.7 mL/min (90-130) H 09/25/24 05:56 Glucose 178 mg/dL (65-115) H 09/25/24 05:56 POC Glucose 181 mg/dL (70-110) H 09/25/24 05:50 Estimat Average Glucose 252 09/19/24 15:09 Hemoglobin A1c 10.4 % (4.0-6.0) H 09/19/24 15:09 Calculated Osmolality 289 mOsm/kg (285-295) 09/25/24 05:56 Lactic Acid 1.7 mmol/L (0.5-2.2) 09/20/24 13:31 Lactic Acid (Sepsis) 1.9 mmol/L (0.5-2.2) 09/19/24 13:39 Lactate 0.9 mmol/L (0.5-2.2) 09/23/24 07:09 Calcium 8.6 mg/dL (8.5-10.5) 09/25/24 05:56 Phosphorus 2.1 mg/dL (2.5-4.5) L 09/25/24 05:56 Magnesium 1.8 mg/dL (1.7-2.3) 09/25/24 05:56 Iron 12 ug/dL (37-145) L 09/21/24 08:32 TIBC 148 mcg/dl 09/21/24 08:32 % Saturation 8.1 % (20-50) L 09/21/24 08:32 Unsat Iron Binding 136 ug/dL (112-347) 09/21/24 08:32 Ferritin 332 ng/mL (15-150) H 09/21/24 08:32 Total Bilirubin 0.3 mg/dL (0.15-1.2) 09/25/24 05:56 AST 17 U/L (0-32) 09/25/24 05:56 ALT 14 U/L (0-33) 09/25/24 05:56 Alkaline Phosphatase 90 U/L (35-105) 09/25/24 05:56 Creatine Kinase 66 U/L (26-192) 09/23/24 07:09 Troponin T Baseline 7 ng/L (0-10) 09/20/24 13:31 Troponin T 120 Minute 6.00 ng/L (0-10) 09/19/24 12:58 Delta Troponin T 0.37544 ABS# (0-10) 09/19/24 12:58 Troponin T Hi Sens 6Hr 6.00 ng/L (0-10) 09/19/24 17:30 Troponin T Hi Sens 6Hr Delta 0.68708 ng/L (0-12) 09/19/24 17:30 C-Reactive Protein 63.0 mg/L (0.0-4.9) H 09/25/24 05:56 NT-Pro-B Natriuret Pep 351 pg/mL (0-125) H 09/24/24 04:34 Total Protein 6.0 g/dL (6.6-8.7) L 09/25/24 05:56 Albumin 3.0 g/dL (3.5-5.2) L 09/25/24 05:56 Globulin 3.0 g/dL (1.3-4.6) 09/25/24 05:56 Triglycerides 87 mg/dL (0-150) 09/19/24 15:09 Cholesterol 106 mg/dL (0-200) 09/19/24 15:09 LDL Cholesterol, Calc 52 mg/dL (50-129) 09/19/24 15:09 HDL Cholesterol 37 mg/dL (60-100) L 09/19/24 15:09 LDL/HDL Ratio 1.41 RATIO (0.00-3.22) 09/19/24 15:09 Cholesterol/HDL Ratio 2.86 mg/dL (0.0-4.40) 09/19/24 15:09 Procalcitonin 0.04 ng/mL (0-0.5) 09/25/24 05:56 TSH 0.75 uIU/mL (0.27-4.20) 09/19/24 15:09 HCG, Qual Negative (Negative) 09/19/24 10:51 Urine Color Yellow (Yellow) 09/20/24 06:20 Urine Appearance Clear (CLEAR) 09/20/24 06:20 Urine pH 5.5 (5-7) 09/20/24 06:20 Ur Specific [place] 1.040 (1.005-1.030) H 09/20/24 06:20 Urine Protein 1+ (Negative) A 09/20/24 06:20 Urine Glucose (UA) 3+ (Normal) H 09/20/24 06:20 Urine Ketones 2+ (Negative) H 09/20/24 06:20 Urine Blood Negative (Negative) 09/20/24 06:20 Urine Nitrate Negative (Negative) 09/20/24 06:20 Urine Bilirubin Negative (Negative) 09/20/24 06:20 Urine Urobilinogen 1.0 mg/dL (Negative) 09/20/24 06:20 Ur Leukocyte Esterase Negative (Negative) 09/20/24 06:20 Urine RBC 0-4 /hpf (0-2) H 09/20/24 06:20 Urine WBC 0-4 /hpf (0-5) H 09/20/24 06:20 Ur Squamous Epith Cells 0-4 /hpf (0-5) H 09/20/24 06:20 Amorphous Sediment Not Reportable 09/19/24 06:20 Urine Bacteria Trace /hpf (NONE) 09/20/24 06:20 Urine Yeast 4+ /hpf H 09/20/24 06:20 Vancomycin Trough 18.2 ug/mL (10-15) H 09/23/24 07:09 Serum Ketones Positive (Negative) H 09/19/24 10:51 Adenovirus (PCR) Not detected (NOT DETECT) 09/20/24 13:36 C. pneumoniae DNA (PCR) Not detected (NOT DETECT) 09/20/24 13:36 Coronavirus 229E (PCR) Not detected (NOT DETECT) 09/20/24 13:36 Human Metapneumovir PCR Not detected (NOT DETECT) 09/20/24 13:36 Influenza A (H1) PCR Not detected (NOT DETECT) 09/20/24 13:36 Influ A (H1/09) PCR Not detected (NOT DETECT) 09/20/24 13:36 Influenza A (H3) PCR Not detected (NOT DETECT) 09/20/24 13:36 Influenza Type A (PCR) Not detected (NOT DETECT) 09/20/24 13:36 Influenza Type B (PCR) Not detected (NOT DETECT) 09/20/24 13:36 M. pneumoniae (PCR) Not detected (NOT DETECT) 09/20/24 13:36 Parainfluenza 1 (PCR) Not detected (NOT DETECT) 09/20/24 13:36 Parainfluenza 2 (PCR) Not detected (NOT DETECT) 09/20/24 13:36 Parainfluenza 3 (PCR) Not detected (NOT DETECT) 09/20/24 13:36 Parainfluenza 4 (PCR) Not detected (NOT DETECT) 09/20/24 13:36 RSV Type A (PCR) Not detected (NOT DETECT) 09/20/24 13:36 RSV Type B (PCR) Not detected (NOT DETECT) 09/20/24 13:36 Entero/Rhino (PCR) Detected (NOT DETECT) A 09/20/24 13:36 SARS-CoV-2 (PCR) Not detected (NOT DETECT) 09/20/24 13:36 Blood Type A Positive 09/21/24 16:05 Rho(D) Type Rh positive 09/21/24 16:05 Antibody Screen Negative 09/21/24 16:05 Crossmatch See Detail 09/21/24 16:05 Vitals Last Vital Signs Temp 98.1 F 09/25/24 07:45 Pulse 65 09/25/24 07:45 Resp 16 09/25/24 07:45 BP 121/77 09/25/24 07:45 Pulse Ox 97 09/25/24 07:45 O2 Del Method Room Air 09/25/24 07:45 O2 Flow Rate 5 09/24/24 13:40 Discharge Plan Discharge Patient Disposition: Home Condition: Stable Prescriptions: New sucralfate 100 mg/mL Suspension 1 g PO Q6H 30 Days Qty: 1200 0RF pantoprazole [Protonix] 40 mg tablet,delayed release (DR/EC) 40 mg PO BID 30 Days Qty: 60 0RF ceftriaxone 2 gram recon soln 2 g IV DAILY 13 Days Qty: 13 0RF hydrocodone-acetaminophen 5-325 mg tablet 1 tab PO Q8H PRN (Reason: pain) 5 Days Qty: 15 0RF glucagon HCl [Glucagon (HCl) Emergency Kit] 1 mg recon soln 1 mg IM Q20M PRN (Reason: hypoglycemia) Qty: 1 0RF Rx Instructions: until target blood sugar attained insulin glargine 100 unit/mL (3 mL) insulin pen 30 unit SUBCUT Q12H 30 Days Qty: 18 0RF Continued escitalopram oxalate [Lexapro] 10 mg tablet 10 mg PO DAILY Qty: 30 1RF pregabalin 50 mg capsule 50 mg PO TID Qty: 90 3RF (DME) FreeStyle Solo 3 [place] Misc See Rx Instructions .Route Qty: 1 0RF Rx Instructions: As directed (DME) FreeStyle Solo 3 Sensor Device See Rx Instructions .Route Qty: 3 11RF Rx Instructions: As directed pantoprazole 40 mg tablet,delayed release (DR/EC) 40 mg PO BID PRN (Reason: acid reflux) Qty: 60 3RF losartan 50 mg Tablet 50 mg PO DAILY rizatriptan 10 mg Tablet 10 mg PO Q2H PRN (Reason: Headache) Rx Instructions: do not exceed 3 doses per 24 hrs aspirin 81 mg Tablet,Delayed Release (Dr/Ec) 81 mg PO DAILY dicyclomine 20 mg Tablet 20 mg PO TID PRN (Reason: Spasms) hydroxyzine HCl 25 mg Tablet 25 mg PO TID PRN (Reason: Anxiety) pravastatin 20 mg Tablet 20 mg PO QPM ergocalciferol (vitamin D2) [Vitamin D2] 1,250 mcg (50,000 unit) Capsule 1,250 mcg PO DAILY ondansetron 4 mg Tablet,Disintegrating 4 mg PO Q8H PRN (Reason: Nausea) metformin 500 mg Tablet Extended Release 24 Hr 1,000 mg PO BID lamotrigine 100 mg Tablet 200 mg PO BID lactulose 10 gram/15 mL Solution 15 ml PO DAILY Jardiance 25 mg Tablet 25 mg PO DAILY Trulicity 1.5 mg/0.5 mL Pen Injector 1.5 mg SUBCUT Q7D magnesium oxide 400 mg magnesium Tablet 400 mg PO BID Motegrity 2 mg Tablet 2 mg PO DAILY Aimovig Autoinjector 140 mg/mL Auto-Injector 140 mg SUBCUT Q30D ferrous sulfate 137 mg (45 mg iron) Tablet Extended Release 45 mg PO BID Changed metoclopramide HCl 10 mg tablet 10 mg PO QID PRN (Reason: nausea) Qty: 120 0RF insulin lispro [Humalog KwikPen Insulin] 100 unit/mL Insulin Pen See Rx Instructions .ROUTE .COMPLEX Qty: 15 0RF Rx Instructions: inject subcut 3 times daily, after meals, based on sliding scale provided insulin glargine [Lantus Solostar U-100 Insulin] 100 unit/mL (3 mL) Insulin Pen See Rx Instructions .ROUTE .COMPLEX Qty: 15 0RF Rx Instructions: TAKE 30 UNITS BY SUBCUTANEOUS INJECTION IN THE MORNING AND 30 UNITS AT BEDTI ME Discontinued metronidazole 500 mg tablet 500 mg PO Q8H Qty: 21 0RF linezolid 600 mg tablet 600 mg PO BID Qty: 14 0RF famotidine 40 mg Tablet 40 mg PO BID hydrocodone-acetaminophen 5-325 mg tablet 1 tab PO Q8H PRN (Reason: pain) Qty: 7 0RF azithromycin 250 mg tablet See Rx Instructions .ROUTE .COMPLEX Rx Instructions: TAKE 2 TABLETS BY MOUTH ON DAY 1, AND THEN TAKE 1 TABLET BY MOUTH ONCE A DAY ON DAY 2 THROUGH DAY 5 sulfamethoxazole-trimethoprim 800-160 mg tablet 1 tab PO [id number] Discharge Orders: Discharge Order (Routine); Ordered 09/25/24 Ordered By: Jerod Gustafson Referrals: Surgical Services [Other] - 09/29/24 11:00 am (This is where you will go on Friday 09/29 and Saturday 09/30 and Friday 10/06 and Saturday 10/07 for your IV Infusions. ) [facility] [Outside] - 09/26/24 1:00 pm (You are scheduled to follow up at the [facility] at 1:00pm, starting tomorrow. Then on the weekends you will go to the Surgical Entrance to follow up with Surgical services for you infusions at 1100. For any questions, feel free to call. ) Moise Mars MD [Physician] - 1 month (We have notified your physician's clinic of the need for a follow-up appointment to be scheduled. If you have not heard from them within the next 2 business days, please call them directly. ) Pako Yu MD [Primary Care Provider] - 10/05/24 11:00 am Moise Wesley DPM [Physician] - 1 week (We have notified your physician's clinic of the need for a follow-up appointment to be scheduled. If you have not heard from them within the next 2 business days, please call them directly. ) Discharge Diet: Cardiac Discharge Activity: Resume usual activity Patient Instructions: Hydrocodone/Acetaminophen (By mouth), Ceftriaxone (By injection), Gastrointestinal Bleeding (GEN), Acute Wound Care (DC), Opioid Safety, Post Anesthesia Care Activity Restrictions/Additional Instructions: -inject triseba 30 units BID -Your insurance pushed for Tresiba or Lantus, that is why have sent in the Alejandro siba, monitor for hypoglycemia with Tresiba as it is a long-acting form of insulin, if you have any hypoglycemic episodes please monitor as below -Please monitor your blood sugars closely -Monitor your blood sugars 3 times daily as after meals -Please record your blood sugars, and a blood sugar log -For your NovoLog -Please inject blood sugar after meals based on sliding scale provided -Do not inject insulin if you do not eat as hypoglycemia kills -This is a NovoLog sliding scale -Insulin sliding ?fingerstick? Insulin ?141-180?4 units/sq 181-220?6 units/sq ?221-260?8 units/sq ?261-300 10 units/sq ?301-350?12 units/sq ?351-400 14 units/sq ?401-450?16 units/sq >450? 18 units/sq -If your blood sugar is greater than 500 go to the emergency room -If your blood sugar is less than 60 or at anytime you feel lightheaded or dizzy or diaphoretic or have chest palpitations check your blood sugar, and eat a hard candy or drink orange juice and go immediately to the emergency room -Remember hypoglycemia kills, so if his blood sugar is less than 60 we have to increase it by taking in a sugary meal such as a hard candy or orange juice and go to the emergency room -If you have any questions please call us where here to help -weight bearing as tolerated LLE with boot on -please follow up with dr wesley in 1 weeks -if you have fever or chills or worsening of LLE swelling/redness or drainage c ome back to the emergency room Discharge Attestations Time Spent in Discharge Care*: greater than 30 min Quality Metrics Clinical Quality Measures [ No reported AMI, CVA or VTE this stay] Coding Level of Care Code 79214 Total time (in minutes) for Discharge: 45 Diagnoses Diabetic ulcer of left foot E11.621; L97.529 Sepsis A41.9 Gas gangrene A48.0
[2024-09-25 11:27] LABS: Glucose Point of Care 103 mg/dL (70-110)
[2024-09-25] MEDS: enoxaparin 40 mg/0.4 mL Syringe SUBCUT (13:46)
[2024-09-25] MEDS: cefTRIAXone 2,000 mg SDV 2000 MG IVP (13:48)
[2024-09-27 18:32] LABS: Fibrinogen Degradation Product <5 mcg/mL (LESS THAN 5)
== END 2024-09-25 14:26 | disposition home or self-care (01) | DRG 853 ==
LOC: ER 11:07 → ICU 12:45 → MEDSURG 09-25 04:40
PROVIDERS: Emergency Medicine; Podiatrist Foot & Ankle Surgery; Admitting Provider Family Medicine; Emergency Provider Family Medicine; PCP Family Medicine; Visit Provider Family Medicine
PROC: 0LBW0ZZ Excision of Left Foot Tendon, Open Approach (ICD-10-PCS; principal; 2024-09-20 07:00)
PROC: 0Y6Y0Z0 Detachment at Left 5th Toe, Complete, Open Approach (ICD-10-PCS; CPT 28810; principal; 2024-09-24 13:15)
DX: A41.9 Sepsis, unspecified organism (principal); A48.0 Gas gangrene; E11.10 Type 2 diabetes mellitus with ketoacidosis without coma; R65.21 Severe sepsis with septic shock; N12 Tubulo-interstitial nephritis, not specified as acute or chronic; K92.2 Gastrointestinal hemorrhage, unspecified; M00.9 Pyogenic arthritis, unspecified; E11.621 Type 2 diabetes mellitus with foot ulcer; L97.529 Non-pressure chronic ulcer of other part of left foot with unspecified severity; E11.40 Type 2 diabetes mellitus with diabetic neuropathy, unspecified; E11.43 Type 2 diabetes mellitus with diabetic autonomic (poly)neuropathy; K31.84 Gastroparesis; L03.032 Cellulitis of left toe; I10 Essential (primary) hypertension; K21.9 Gastro-esophageal reflux disease without esophagitis; E78.5 Hyperlipidemia, unspecified; E28.2 Polycystic ovarian syndrome; K58.9 Irritable bowel syndrome, unspecified; B96.20 Unspecified Escherichia coli [E. coli] as the cause of diseases classified elsewhere; B95.1 Streptococcus, group B, as the cause of diseases classified elsewhere; B34.8 Other viral infections of unspecified site; F41.9 Anxiety disorder, unspecified; F32.A Depression, unspecified; G43.909 Migraine, unspecified, not intractable, without status migrainosus; D50.9 Iron deficiency anemia, unspecified; Z87.891 Personal history of nicotine dependence; Z79.82 Long term (current) use of aspirin; Z79.84 Long term (current) use of oral hypoglycemic drugs; Z79.85 Long-term (current) use of injectable non-insulin antidiabetic drugs; Z79.4 Long term (current) use of insulin
CPT/HCPCS: 36415; 36416; 36430; 36573; 36592; 36600; 71045; 71275; 73600; 73630; 73718; 74177; 80048; 80051; 80053; 80061; 80202; 81001; 82009; 82274; 82330; 82550; 82728; 82805; 82962; 83036; 83540; 83550; 83605; 83735; 83880; 84100; 84145; 84443; 84484; 84703; 85014; 85018; 85025; 85362; 85378; 85384; 85610; 85651; 85730; 86140; 86850; 86900; 86920; 87040; 87070; 87075; 87077; 87086; 87176; 87186; 87205; 87486; 87581; 87633; 88305; 88311; 93005; 93970; 94664; 96365; 96367; 96372; 96374; 96375; 96376; 99285; J0131; J0330; J0696; J1100; J1650; J1815; J2020; J2185; J2250; J2405; J2470; J2543; J2704; J2765; J3010; J3370; J3475; J3490; J7030; P9016

== ENCOUNTER 2024-10-05 10:00 | Oncology outpatient (recurring) (ONCR) | payer OTHER, SELFPAY ==
[2024-09-26] MEDS: cefTRIAXone 2,000 mg SDV 2000 MG IVP (13:24)
[2024-09-26 13:39] VITALS: BP 129/72; PULSE 82; RESP 16; TEMP 36.6; O2SAT 98
[2024-09-27] MEDS: cefTRIAXone 2,000 mg SDV 2000 MG IVP (13:12)
[2024-09-28 08:35] VITALS: BP 137/80; PULSE 60; RESP 17; TEMP 36.2; O2SAT 99
[2024-09-28] MEDS: cefTRIAXone 2,000 mg SDV 2000 MG IVP (08:56)
[2024-09-29] MEDS: cefTRIAXone 2,000 mg SDV 2000 MG IVP (10:44)
[2024-09-29 11:03] VITALS: BP 128/70; PULSE 70; RESP 18; TEMP 36.7; O2SAT 97; BMI 30.8
[2024-09-30] MEDS: cefTRIAXone 2,000 mg SDV 2000 MG IVP (10:50)
[2024-09-30 10:58] VITALS: BP 129/80; PULSE 63; RESP 18; TEMP 36.1; O2SAT 100
[2024-10-01] MEDS: cefTRIAXone 2,000 mg SDV 2000 MG IVP (12:42)
[2024-10-01 12:54] VITALS: BP 119/73; PULSE 76; RESP 17; TEMP 36.9; O2SAT 96
[2024-10-02] MEDS: cefTRIAXone 2,000 mg SDV 2000 MG IVP (13:09)
[2024-10-02 13:17] LABS: Basophils # 0.1 10^3/uL (0.0-0.1); Basophils % 0.5 %; Eosinophils # 0.1 10^3/uL (0.0-0.8); Hematocrit 32.5 % (36-47); Lymphocytes # 2.1 10^3/uL (0.8-4.8); Lymphocytes % 23.2 %; Mean Corpuscular HGB Conc 31.1 g/dL (30-55); Mean Corpuscular Volume 83.8 fl (85-98); Mean Platelet Volume 11.5 fL (7.4-10.4); Monocytes # 0.6 10^3/uL (0.2-0.9); Monocytes % 6.5 %; Neutrophils # 6.26 10^3/uL (1.8-7.7); Neutrophils % 68.4 %; Nucleated Red Blood Cells % 0 %; Platelet Count 332 10^3/cmm (157-399); Red Blood Count 3.88 10^6/uL (3.85-5.65); Red Cell Distribution Width 14.9 % (12.1-15.1); White Blood Count 9.17 10^3/uL (3.29-11.43)
[2024-10-02 14:00] LABS: Alanine Aminotransferase 12 U/L (0-33); Albumin Level 3.7 g/dL (3.5-5.2); Alkaline Phosphatase 97 U/L (35-105); Anion Gap 18.4 (5-19); Aspartate Amino Transferase 22 U/L (0-32); Blood Urea Nitrogen 9 mg/dL (6-20); Calcium 8.8 mg/dL (8.5-10.5); Carbon Dioxide 23 mmol/L (22-29); Chloride 103 mmol/L (98-107); Creatinine Clr Calc Pharmacy 179.0649; Globulin 3.8 g/dL (1.3-4.6); Glomerular Filtration Rate 134.7 mL/min (90-130); Glucose 157 mg/dL (65-115); Osmolality Calculated 292 mOsm/kg (285-295); Potassium 4.4 mmol/L (3.5-5.1); Sodium 140 mmol/L (136-145); Total Bilirubin 0.4 mg/dL (0.15-1.2); Total Protein 7.5 g/dL (6.6-8.7)
[2024-10-03] MEDS: cefTRIAXone 2,000 mg SDV 2000 MG IVP (13:46)
[2024-10-03 14:01] VITALS: BP 118/61; PULSE 72; RESP 16; TEMP 36.6; O2SAT 97
[2024-10-04] MEDS: cefTRIAXone 2,000 mg SDV 2000 MG IVP (13:24)
[2024-10-05] MEDS: cefTRIAXone 2,000 mg SDV 2000 MG IVP (10:09)
[2024-10-05 10:22] VITALS: BP 126/79; PULSE 74; RESP 16; TEMP 36.6; O2SAT 99
== END 2024-10-05 23:59 | disposition home or self-care (01) ==
PROVIDERS: PCP Family Medicine; Visit Provider Family Medicine
DX: Z53.9 Procedure and treatment not carried out, unspecified reason (principal); E11.621 Type 2 diabetes mellitus with foot ulcer; L97.529 Non-pressure chronic ulcer of other part of left foot with unspecified severity; A41.9 Sepsis, unspecified organism; A48.0 Gas gangrene; Z79.899 Other long term (current) drug therapy
CPT/HCPCS: 80053; 85025; 96365; 96374; 96375; J0696

== ENCOUNTER 2024-10-10 14:00 | Oncology outpatient (recurring) (ONCR) | payer OTHER, SELFPAY ==
[2024-10-06 11:20] VITALS: BP 112/74; PULSE 71; RESP 16; TEMP 36.4; O2SAT 98
[2024-10-06] MEDS: cefTRIAXone 2,000 mg SDV 2000 MG IVP (11:43)
[2024-10-07 11:03] VITALS: BP 106/73; PULSE 74; RESP 17; TEMP 36.4; O2SAT 99
[2024-10-07] MEDS: cefTRIAXone 2,000 mg SDV 2000 MG IVP (11:16)
[2024-10-08] MEDS: cefTRIAXone 2,000 mg SDV 2000 MG IVP (13:31)
[2024-10-09] MEDS: cefTRIAXone 2,000 mg SDV 2000 MG IVP (13:53)
--- NOTE | 2024-10-10 14:29 | PC.NURSE ---
Pt in infusion room for PICC line removal. Written order to remove PICC after pt has completed antibiotics. Removed pts PICC line, 38cm catheter length, in tact. No bleeding, redness, or irritation at PICC removal site. Pt tolerated well. Pressure dressing applied. Pt educated to apply pressure if bleeding occurs, leave bandage on for 24 hours, no heavy lifting for 48 hours. Pt verbalized understanding of instructions.
== END 2024-11-02 23:59 | disposition home or self-care (01) ==
PROVIDERS: PCP Family Medicine; Visit Provider Family Medicine
DX: Z53.9 Procedure and treatment not carried out, unspecified reason (principal)
CPT/HCPCS: 96374; J0696

== ENCOUNTER 2024-11-06 14:43 | Oncology outpatient (recurring) (ONCR) | payer OTHER, SELFPAY ==
--- NOTE | 2024-11-06 15:15 | MRR_ITS ---
PROCEDURE INFORMATION: Exam: MR Left Lower Extremity Other Than Joint Without and With Contrast; Foot Exam date and time: 11/06/2024 3:26 PM Age: 43 years old Clinical indication: Condition or disease; Other: Non healing ulcer; Prior surgery; Surgery date: 1-6 months; Surgery type: Toe amputation 09/24; Pain, swelling, redness on top of foot for two weeks toe amputated on sep 24, non healing wound; Additional info: Rule out osteomyelitis in 4th metatarsal; Non healing ulcer TECHNIQUE: Imaging protocol: Magnetic resonance imaging of the left lower extremity without and with contrast. Exam focused on the foot. Contrast material: MULTIHANCE; Contrast volume: 20 ml; Contrast route: INTRAVENOUS (IV); COMPARISON: MR foot LT wo con* [id number] 09/19/2024 4:35 PM FINDINGS: There is ulceration superficial to the 4th MTP joint. There is regional edema with postcontrast enhancement compatible with cellulitis. A definite loculated abscess is not appreciated. Diffuse edema with enhancement extends into the dorsal aspect of the midfoot also compatible with cellulitis. There are postoperative changes status post transmetatarsal amputation of the 5th digit. There are changes of osteomyelitis with abnormal T1 and T2 signal with abnormal enhancement involving the remnant 5th metatarsal, 4th metatarsal, proximal 4th phalanx and the cuboid. Marrow signal involving the included tarsal bones, metatarsals and phalanges is otherwise normal. MR/MR foot LT wo/w con [id number] IMPRESSION: 1. Lateral ulcer with regional cellulitis as well as cellulitis involving the dorsal aspect of the foot. No definite loculated abscess is appreciated. 2. Postoperative changes status post transmetatarsal amputation of the 5th digit. 3. Osteomyelitis involving the remnant 5th metatarsal, 4th metatarsal, proximal 4th phalanx, and cuboid.
[2024-11-06] MEDS: gadobenate dimeglumine 20 mL vial IV (15:58)
== END 2024-12-03 23:59 | disposition home or self-care (01) ==
LOC: ONCMED 14:44 → RAD 14:45 → ONCMED 14:46
PROVIDERS: PCP Family Medicine; Visit Provider Thoracic Surgery (Cardiothoracic Vascular Surgery)
DX: E11.621 Type 2 diabetes mellitus with foot ulcer (principal); L97.529 Non-pressure chronic ulcer of other part of left foot with unspecified severity; Z89.422 Acquired absence of other left toe(s); M86.8X7 Other osteomyelitis, ankle and foot
CPT/HCPCS: 73720; A9577

== ENCOUNTER → 2024-11-12 13:52 | Outpatient (BNVA) | payer OTHER, SELFPAY | PROVIDERS: PCP Family Medicine; Visit Provider Thoracic Surgery (Cardiothoracic Vascular Surgery) | DX: E11.621 Type 2 diabetes mellitus with foot ulcer (principal); L97.509 Non-pressure chronic ulcer of other part of unspecified foot with unspecified severity | CPT/HCPCS: 87070; 87075; 87176; 87205 ==

== ENCOUNTER 2024-11-13 10:56 | Outpatient (CLI) | payer OTHER, SELFPAY ==
[2024-11-13 12:03] LABS: Basophils % 0.6 %; Eosinophils # 0.1 10^3/uL (0.0-0.8); Eosinophils % 1.6 %; Hematocrit 35.6 % (36-47); Lymphocytes # 1.8 10^3/uL (0.8-4.8); Lymphocytes % 28.5 %; Mean Corpuscular HGB Conc 30.6 g/dL (30-55); Mean Corpuscular Hemoglobin 24.4 pg (27-33); Mean Corpuscular Volume 79.8 fl (85-98); Mean Platelet Volume 12.7 fL (7.4-10.4); Monocytes # 0.4 10^3/uL (0.2-0.9); Monocytes % 6.9 %; Neutrophils # 3.88 10^3/uL (1.8-7.7); Neutrophils % 62.2 %; Nucleated Red Blood Cells % 0 %; Platelet Count 196 10^3/cmm (157-399); Red Blood Count 4.46 10^6/uL (3.85-5.65); Red Cell Distribution Width 15.1 % (12.1-15.1); White Blood Count 6.24 10^3/uL (3.29-11.43)
[2024-11-13 12:15] LABS: Estmated Average Glucose 192; Hemoglobin A1C 8.3 % (4.0-6.0)
[2024-11-13 12:42] LABS: Anion Gap 14.2 (5-19); Blood Urea Nitrogen 11 mg/dL (6-20); C Reactive Protein 10.6 mg/L (0.0-4.9); Calcium 9.1 mg/dL (8.5-10.5); Carbon Dioxide 25 mmol/L (22-29); Chloride 104 mmol/L (98-107); Glomerular Filtration Rate 108.6 mL/min (90-130); Glucose 167 mg/dL (65-115); Osmolality Calculated 291 mOsm/kg (285-295); Potassium 4.2 mmol/L (3.5-5.1); Sodium 139 mmol/L (136-145)
[2024-11-13 13:01] LABS: Prealbumin 12.6 mg/dL (20-40)
== END 2024-11-13 10:57 | disposition home or self-care (01) ==
PROVIDERS: PCP Family Medicine; Visit Provider Thoracic Surgery (Cardiothoracic Vascular Surgery)
DX: E11.621 Type 2 diabetes mellitus with foot ulcer (principal); L97.509 Non-pressure chronic ulcer of other part of unspecified foot with unspecified severity
CPT/HCPCS: 36415; 80048; 83036; 84134; 85025; 86140

== ENCOUNTER 2024-11-16 08:15 | Outpatient (CLI) | payer OTHER, SELFPAY ==
--- NOTE | 2024-11-16 08:18 | XR_ITS ---
WS: [id number] Single view upright chest, 11/16/2024 Clinical Data: E11.621 - Type 2 diabetes mellitus with foot ulcer Comparison: Portable chest, 09/20/2024 Findings: No nodules, masses or effusions are seen. The heart is normal. The pulmonary vascularity is not increased. No pneumonia or pneumothorax is seen. XR/XR chest 1V [id number] Impression: Negative chest.
== END 2024-11-16 08:16 | disposition home or self-care (01) ==
LOC: RAD 08:17
PROVIDERS: PCP Family Medicine; Visit Provider Thoracic Surgery (Cardiothoracic Vascular Surgery)
DX: E11.621 Type 2 diabetes mellitus with foot ulcer (principal); L97.509 Non-pressure chronic ulcer of other part of unspecified foot with unspecified severity
CPT/HCPCS: 71045

== ENCOUNTER → 2024-11-19 11:37 | Outpatient (BNVA) | payer OTHER, SELFPAY | PROVIDERS: PCP Family Medicine; Referring Provider Thoracic Surgery (Cardiothoracic Vascular Surgery); Visit Provider Internal Medicine Cardiovascular Disease | DX: E11.621 Type 2 diabetes mellitus with foot ulcer (principal); L97.509 Non-pressure chronic ulcer of other part of unspecified foot with unspecified severity; I96 Gangrene, not elsewhere classified; T87.81 Dehiscence of amputation stump; Y83.8 Other surgical procedures as the cause of abnormal reaction of the patient, or of later complication, without mention of misadventure at the time of the procedure; Z89.422 Acquired absence of other left toe(s) | CPT/HCPCS: 87070; 87176; 87205; 93005 ==

== ENCOUNTER → 2024-11-21 13:37 | Outpatient (BNVA) | payer OTHER, SELFPAY | PROVIDERS: PCP Family Medicine; Visit Provider Thoracic Surgery (Cardiothoracic Vascular Surgery) | DX: M86.9 Osteomyelitis, unspecified (principal); E11.621 Type 2 diabetes mellitus with foot ulcer; L97.509 Non-pressure chronic ulcer of other part of unspecified foot with unspecified severity | CPT/HCPCS: 87070; 87176; 87205 ==

== ENCOUNTER → 2024-11-26 16:22 | Outpatient (BNVA) | payer OTHER, SELFPAY | PROVIDERS: PCP Family Medicine; Visit Provider Thoracic Surgery (Cardiothoracic Vascular Surgery) | DX: E11.621 Type 2 diabetes mellitus with foot ulcer (principal); L97.509 Non-pressure chronic ulcer of other part of unspecified foot with unspecified severity | CPT/HCPCS: 87070; 87176; 87205 ==

== ENCOUNTER 2024-11-30 10:16 | Outpatient (CLI) | payer OTHER, SELFPAY ==
--- NOTE | 2024-11-30 10:20 | USR_ITS ---
PROCEDURE INFORMATION: Exam: US Duplex Left Lower Extremity Arteries Or Arterial Bypass Grafts Exam date and time: 11/30/2024 10:24 AM Age: 44 years old Clinical indication: Injury or trauma; Other: Diabetic ulcer; Other: Dibetic ulcer; Additional info: Type 2 diabetes mellitus w/foot ulcer TECHNIQUE: Imaging protocol: Left Real-time duplex scan of the arteries or arterial bypass grafts of the left lower extremity with 2-D randall scale, color Doppler flow and spectral waveform analysis. Images documented and saved. COMPARISON: foot LT wo/w con [id number] 11/06/2024 3:26 PM FINDINGS: There is an enlarged lymph node measuring 3.7 x 4.9 x 1.4 cm in size at the level of the proximal SFA. Left TAYO proximal: Triphasic flow with a peak systolic velocity of 106 cm/s Left TAYO mid: Triphasic flow with a peak systolic velocity of 115 cm/s Left TAYO distal: Triphasic flow with a peak systolic velocity of 99 cm/s Left ADMINISTRATIVE OPERATIONS COORDINATOR: Triphasic flow with a peak systolic velocity of 97 cm/s Left SFA proximal: Triphasic flow with a peak systolic velocity of 107 cm/s Left SFA mid: Triphasic flow with a peak systolic velocity of 135 cm/s Left SFA distal: Triphasic flow with a peak systolic velocity of 110 cm/s Left popliteal artery: Triphasic flow with a peak systolic velocity of 69 cm/s Left DIRECTOR FIELD SERVICES: Triphasic flow with a peak systolic velocity of 137 cm/s Left DPA: Triphasic flow with a peak systolic velocity of 101 cm/s Left brachial pressure 120/70. Left DIRECTOR FIELD SERVICES 150. Left DPA 147. Next the left ankle-brachial index is 1.25. US/CV arterial duplex [facility] [id number] IMPRESSION: 1. No definite significant occlusive disease is noted involving the left lower extremity arterial system. 2. Enlarged lymph node at the proximal SFA level.
== END 2024-11-30 10:17 | disposition home or self-care (01) ==
LOC: RAD 10:17
PROVIDERS: PCP Family Medicine; Visit Provider Thoracic Surgery (Cardiothoracic Vascular Surgery)
DX: E11.621 Type 2 diabetes mellitus with foot ulcer (principal); R59.0 Localized enlarged lymph nodes
CPT/HCPCS: 93926

== ENCOUNTER 2024-12-04 06:00 | Oncology outpatient (recurring) (ONCR) | payer OTHER, SELFPAY | END 2025-01-02 23:59 | disposition home or self-care (01) | LOC: ONCMED 12-05 06:58 | PROVIDERS: PCP Family Medicine; Visit Provider Thoracic Surgery (Cardiothoracic Vascular Surgery) | DX: E11.621 Type 2 diabetes mellitus with foot ulcer (principal); L97.529 Non-pressure chronic ulcer of other part of left foot with unspecified severity; M86.8X7 Other osteomyelitis, ankle and foot; E11.9 Type 2 diabetes mellitus without complications | CPT/HCPCS: 87070; 87176; 87205 ==

== ENCOUNTER 2024-12-18 16:16 | Outpatient (CLI) | payer OTHER, SELFPAY ==
[2024-12-18 17:02] LABS: Basophils % 0.4 %; Eosinophils # 0.1 10^3/uL (0.0-0.8); Eosinophils % 1.9 %; Lymphocytes # 1.4 10^3/uL (0.8-4.8); Lymphocytes % 19.7 %; Mean Corpuscular HGB Conc 30.9 g/dL (30-55); Mean Corpuscular Volume 77.6 fl (85-98); Mean Platelet Volume 12.9 fL (7.4-10.4); Monocytes # 0.4 10^3/uL (0.2-0.9); Neutrophils # 5.04 10^3/uL (1.8-7.7); Neutrophils % 71.9 %; Nucleated Red Blood Cells % 0 %; Platelet Count 195 10^3/cmm (157-399); Red Blood Count 4.25 10^6/uL (3.85-5.65); Red Cell Distribution Width 15.9 % (12.1-15.1); White Blood Count 7.01 10^3/uL (3.29-11.43)
[2024-12-18 17:05] LABS: Slide Review Slide Review Perform
[2024-12-18 17:17] LABS: Alanine Aminotransferase 10 U/L (0-33); Albumin Level 3.9 g/dL (3.5-5.2); Alkaline Phosphatase 98 U/L (35-105); Anion Gap 15.6 (5-19); Aspartate Amino Transferase 11 U/L (0-32); Blood Urea Nitrogen 10 mg/dL (6-20); C Reactive Protein 8.9 mg/L (0.0-4.9); Carbon Dioxide 22 mmol/L (22-29); Chloride 105 mmol/L (98-107); Globulin 3.6 g/dL (1.3-4.6); Glomerular Filtration Rate 108.6 mL/min (90-130); Glucose 291 mg/dL (65-115); Osmolality Calculated 296 mOsm/kg (285-295); Potassium 4.6 mmol/L (3.5-5.1); Sodium 138 mmol/L (136-145); Total Bilirubin 0.3 mg/dL (0.15-1.2); Total Protein 7.5 g/dL (6.6-8.7)
== END 2024-12-18 16:17 | disposition home or self-care (01) ==
LOC: LAB 16:18
PROVIDERS: PCP Family Medicine
DX: E11.621 Type 2 diabetes mellitus with foot ulcer (principal); L97.509 Non-pressure chronic ulcer of other part of unspecified foot with unspecified severity
CPT/HCPCS: 80053; 85025; 86140

== ENCOUNTER → 2024-12-27 14:58 | Outpatient (BNVA) | payer OTHER, SELFPAY | PROVIDERS: PCP Family Medicine; Visit Provider Thoracic Surgery (Cardiothoracic Vascular Surgery) | DX: E11.621 Type 2 diabetes mellitus with foot ulcer (principal); L97.509 Non-pressure chronic ulcer of other part of unspecified foot with unspecified severity | CPT/HCPCS: 87070; 87176; 87205 ==

== ENCOUNTER 2024-12-28 15:45 | Outpatient (CLI) | payer OTHER, SELFPAY ==
[2024-12-28 16:56] LABS: Magnesium 1.7 mg/dL (1.7-2.3); Phosphorus 3.4 mg/dL (2.5-4.5); Prealbumin 11.7 mg/dL (20-40)
== END 2024-12-28 15:46 | disposition home or self-care (01) ==
PROVIDERS: PCP Family Medicine; Visit Provider Thoracic Surgery (Cardiothoracic Vascular Surgery)
DX: E11.621 Type 2 diabetes mellitus with foot ulcer (principal); L97.509 Non-pressure chronic ulcer of other part of unspecified foot with unspecified severity
CPT/HCPCS: 36415; 83735; 84100; 84134

== ENCOUNTER → 2024-12-31 14:02 | Outpatient (BNVA) | payer OTHER, SELFPAY | PROVIDERS: PCP Family Medicine; Visit Provider Thoracic Surgery (Cardiothoracic Vascular Surgery) | DX: E11.621 Type 2 diabetes mellitus with foot ulcer (principal); L97.509 Non-pressure chronic ulcer of other part of unspecified foot with unspecified severity | CPT/HCPCS: 87070; 87176; 87205 ==

== ENCOUNTER → 2025-01-08 10:35 | Outpatient (BNVA) | payer OTHER, SELFPAY | PROVIDERS: PCP Family Medicine; Visit Provider Podiatrist Foot & Ankle Surgery | DX: E11.621 Type 2 diabetes mellitus with foot ulcer (principal); L97.522 Non-pressure chronic ulcer of other part of left foot with fat layer exposed; E11.42 Type 2 diabetes mellitus with diabetic polyneuropathy; Z79.4 Long term (current) use of insulin; M86.8X7 Other osteomyelitis, ankle and foot | CPT/HCPCS: 73630 ==

== ENCOUNTER 2025-01-14 09:40 | Day surgery (SDC) | payer OTHER, SELFPAY ==
[2025-01-14] VITALS (12 sets, daily range): BP systolic 85–121; BP diastolic 50–78; PULSE 80–120; RESP 8–22; TEMP 36.8; O2SAT 92–100
--- NOTE | 2025-01-14 08:42 | XR_ITS ---
WS: [id number] Exam: XR foot LT 2V [id number] Date/Time of Exam: 01/14/2025 8:42 AM Reason For Exam: OR PIC, LEFT FOOT Limited AP C-arm image of the LEFT foot is submitted. The image was obtained for intraoperative visualization purposes.
[2025-01-14 10:04] LABS: OR HCG Qualitative Urine Negative (Negative)
[2025-01-14 10:21] LABS: Glucose Point of Care 257 mg/dL (70-110)
[2025-01-14] MEDS: sodium chloride 0.9% 1,000 ML 30 ML IV (10:24)
[2025-01-14] MEDS: ondansetron 2 mg/ML SDV 2 mL 4 MG IVP (10:27)
[2025-01-14] MEDS: CELEcoxib 200 mg Capsule 400 MG PO (10:29)
[2025-01-14] MEDS: gabapentin 300 mg Capsule PO (10:29)
--- NOTE | 2025-01-14 10:50 | ANES.PREANE2 ---
Pre-Anesthetic Assessment Height/Weight: Height 1.75 m Weight 96.162 kg Temp Pulse Resp BP Pulse Ox O2 Del Method 98.2 F 120 H 16 121/78 97 Room Air 01/14/25 09:55 01/14/25 09:55 01/14/25 09:55 01/14/25 09:55 01/14/25 09:55 01/14/25 09:57 Preop Diagnosis: Osteomyelitis Operation Date: 01/14/25 11:25 Proposed Procedures p Left foot fifth metatarsal metatarsectomy(Left) - Moise Sanchez DPM s Left foot fourth metatarsal head resection(Left) - Moise Sanchez DPM s Left foot fourth digit phalangectomy(Left) - Moise Sanchez DPM s Left foot peroneus brevis tendon transfer(Left) - Moise Sanchez DPM Last intake: Intake Last Liquid Date 01/14/25 Last Liquid Time 08:00 Last Solid Date 01/13/25 Last Solid Time 20:00 Social No alcohol and No tobacco Exam alert, oriented x 3, clear to auscultation bilaterally and regular rate & rhythm Airway Submandibular: within normal limits Cervical ROM: within normal limits Mallampati: Class II CV/HEM Hypertension GI Gastroesophageal Reflux Disease controlled GERD Metabolic Diabetes Mellitus and Hyperlipidemia Anesthetic Plan ASA status: 3 Anesthesia: General Medications/Allergies Home Medications ?Medication ?Instructions ?Recorded ?Confirmed ?Last Taken ?Type aspirin 81 mg tablet,delayed 81 mg PO DAILY 01/11/24 01/10/25 01/10/25 History release ferrous sulfate 137 mg (45 mg 45 mg PO BID 01/11/24 01/10/25 01/13/25 History iron) tablet,extended release blood-glucose meter,continuous #1 ea 07/17/24 01/08/25 Unknown Rx (FreeStyle Solo 3 [place]) blood-glucose sensor (FreeStyle #3 ea 07/17/24 01/08/25 Unknown Rx Solo 3 Sensor device) pantoprazole 40 mg tablet,delayed 40 mg PO BID PRN acid reflux #60 08/20/24 01/10/25 01/14/25 Rx release tabs glucagon HCl 1 mg solution for 1 mg IM Q20M PRN hypoglycemia #1 ea 09/25/24 01/10/25 Unknown Rx injection (Glucagon (HCl) Emergency Kit) metoclopramide HCl 10 mg tablet 10 mg PO QID PRN nausea #120 tabs 09/25/24 01/10/25 01/13/25 Rx diazepam 5 mg tablet 5 mg PO DAILY PRN anxiety 20 days 11/20/24 01/10/25 01/13/25 Rx #20 tabs insulin glargine-yfgn 100 unit/mL 30 unit (0.3 mL) SUBCUT BID 1 12/05/24 01/10/25 01/13/25 Rx (3 mL) subcutaneous pen ( month #18 mL (insulin glargine-yfgn) Pen) levofloxacin 500 mg tablet 500 mg PO DAILY #14 tabs 01/04/25 01/10/25 01/14/25 Rx metformin 500 mg tablet,extended 1,000 mg (2 x 500 mg) PO BID #120 01/09/25 01/10/25 01/13/25 Rx release 24 hr tabs insulin aspart U-100 100 unit/mL 14 sliding scale dose SUBCUT TID 01/10/25 01/10/25 01/13/25 History (3 mL) subcutaneous pen (Novolog FlexPen U-100 Insulin aspart) Allergies Allergy/AdvReac Type Severity Reaction Status Date / Time lisinopril Allergy ADR-Cough Verified 01/08/25 14:54 Current Medications Generic Name Dose Route Start Last Admin Trade Name Freq PRN Reason Stop Dose Admin Sodium Chloride 1,000 mls @ 30 mls/hr 01/14/25 06:30 01/14/25 10:24 Sodium Chloride 0.9% IV 01/15/25 06:29 30 mls/hr .Q24H ADRIANA Administration Sodium Chloride 1,000 mls @ 30 mls/hr 01/14/25 10:00 01/14/25 10:30 Sodium Chloride 0.9% IV 01/15/25 09:59 Not Given .Q24H ADRIANA Ondansetron HCl 4 mg 01/14/25 06:29 01/14/25 10:27 Ondansetron 2 Mg/Ml Sdv 2 Ml IVP 4 mg Q5M PRN Administration NAUSEA AND VOMITING PFSH Anesthesia Medical History Type 2 diabetes mellitus with foot ulcer History of abnormal mammogram 02/07/2024 patient reported abnormal mammogram, time for 6-month follow-up Chronic GERD Diabetic retinopathy associated with controlled type 2 diabetes mellitus Anxiety and depression Dyslipidemia associated with type 2 diabetes mellitus Migraines DM II (diabetes mellitus, type II), controlled Gastroparesis Degenerative disc disease History of PCOS HTN (hypertension) with goal to be determined Diabetic neuropathy IBS (irritable bowel syndrome) Broken nose Fatty liver Surgical History History of cholecystectomy Family History Father Diabetes Mother Diabetes Fatty liver Social History Smoking and tobacco/nicotine status: never used tobacco/nicotine Quit status (tobacco/nicotine): has quit using Alcohol intake: former Substance/Drug Use: never
--- NOTE | 2025-01-14 10:52 | W.PM.OPSUD ---
Surgery/Procedure H&P Update DATE OF PROCEDURE: January 14, 2025 DATE H&P PERFORMED: 01/08/25 H&P UPDATE INFORMATION: I have reviewed H&P completed within last 30 days, I have examined patient prior to procedure, No changes to prior documentation, H&P is in [facility] EMR on date indicated and Risks and benefits of the procedure reviewed PREOP DIAGNOSIS: Osteomyelitis PLANNED PROCEDURE: Operation Date: 01/14/25 11:25 Proposed Procedures p Left foot fifth metatarsal metatarsectomy(Left) - EDSON Cruz Left foot fourth metatarsal head resection(Left) - EDSON Cruz Left foot fourth digit phalangectomy(Left) - EDSON Cruz Left foot peroneus brevis tendon transfer(Left) - Moise Sanchez DPM
[2025-01-14] MEDS: ceFAZolin 2,000 mg SDV 2000 MG IVP (11:02)
--- NOTE | 2025-01-14 12:13 | P.BOP_ITS ---
Date of procedure: 01/14/2025 Surgeon name: Dr. Moise Sanchez D.P.M. [employer] Workers(s) name(s): Maral Mariscal Procedure(s) performed: 1. Left foot fifth metatarsal metatarsectomy CPT 91774 2. Left foot fourth metatarsal head resection CPT 11626 3. Left foot fourth digit phalangectomy CPT 03284 4. Left foot peroneus brevis tendon transfer CPT 10425 Description of findings: Osteomyelitis left fifth metatarsal base Estimated blood loss: 5 cc Tourniquet time: 39 minutes Specimen(s) removed: Fifth metatarsal base, fourth metatarsal head, fourth proximal phalanx base Post-operative diagnosis: Osteomyelitis left foot
--- NOTE | 2025-01-14 12:13 | W.PM.BPON ---
Date of procedure: 01/14/2025 Surgeon name: Dr. Moise Sanchez D.P.M. Medical Management Trainer(s) name(s): Maral Mariscal Procedure(s) performed: 1. Left foot fifth metatarsal metatarsectomy CPT 57103 2. Left foot fourth metatarsal head resection CPT 46559 3. Left foot fourth digit phalangectomy CPT 92152 4. Left foot peroneus brevis tendon transfer CPT 59038 Description of findings: Osteomyelitis left fifth metatarsal base Estimated blood loss: 5 cc Tourniquet time: 39 minutes Specimen(s) removed: Fifth metatarsal base, fourth metatarsal head, fourth proximal phalanx base Post-operative diagnosis: Osteomyelitis left foot
--- NOTE | 2025-01-14 12:15 | PM.OP ---
Operative Report Date of procedure: January 14, 2025 Surgeon: Moise Sanchez DPM Procedure: Date of procedure: 01/14/2025 Pre-op diagnosis: Osteomyelitis left foot Post-op diagnosis: Same Post-op findings: Degenerative changes fifth metatarsal base as well as fourth metatarsal head consistent with osteomyelitis. Procedure done: 1. Left foot fifth metatarsal metatarsectomy CPT 82577 2. Left foot fourth metatarsal head resection CPT 57169 3. Left foot fourth digit phalangectomy CPT 19865 4. Left foot peroneus brevis tendon transfer CPT 54987 Implants: 2-0 Ethibond for peroneus brevis tendon transfer Specimens removed: Fifth metatarsal base, fourth metatarsal head, fourth digit proximal phalanx base Surgeon: Dr. Moise Sanchez DPM Chronometer Assembler And Adjuster: Maral Mariscal Estimated blood loss: 5 cc Tourniquet time: 39 minutes Complications: None Patient is a 44-year-old female that has a history of osteomyelitis fifth metatarsal base and fourth metatarsal head with chronic ulcerations. The patient has had the aforementioned chief complaint for some time. Conservative treatment measures have been attempted and the patient has opted for surgical intervention at this time. A lengthy discussion regarding the procedure, including risks and complications has been had with the patient and is noted in the recent clinic note. Written and verbal consent have been obtained. All patient questions have been answered to the patient?s satisfaction. No written or verbal guarantees have been given or implied. The patient has been NPO since midnight. The history has been reviewed and the history and physical is current. The signed consent was confirmed and placed in the patient chart. Patient imaging has been reviewed and is consistent with the diagnosis. Under mild sedation, the patient was brought into the operating room and placed on the table in the supine position. IV antibiotics were given by the anesthesia team as preoperative surgical prophylaxis. General sedation was then performed by the anesthesiateam. A pneumatic tourniquet was then placed about the left ankle. The operative extremity was then prepped and draped in the usual fashion. The extremity was then elevated and exsanguinated before the tourniquet was inflated to 250 mmHg. After inflation, the following procedure was then performed. Attention was directed to the lateral aspect of the left foot where a full-thickness ulceration was noted measuring 1.0 x 1.0 x 0.8 cm with positive probe to bone to the fifth metatarsal base. A 5 cm incision was made over this area to ellipse the wound. Dissection was carried down through subcutaneous the superficial fascia to the level of the fifth metatarsal base. The peroneus brevis attachment to the fifth metatarsal base was isolated. The tendon was tagged using Vicryl and was resected from the base of the fifth metatarsal. Fifth metatarsal base was then excised from the operative field and sent as specimen to pathology. Fifth metatarsal head soft discolored appearance consistent with osteomyelitis. No purulence or active signs of infection were visualized at this level. Any nonviable appearing tissue of the wound was removed via sharp excision with #15 blade. The incision was extended distally to expose the fourth metatarsal phalangeal joint. Fourth metatarsal head was noted to be soft and erosive consistent with osteomyelitis. Sagittal bone saw was used to make an osseous cut through the distal portion of the fourth metatarsal to remove the metatarsal head and neck. This was passed from the operative field to be sent as specimen to pathology. The base of the proximal phalanx was then resected using sagittal bone saw. The sample was also sent to pathology to rule out osteomyelitis. Attention was then directed to the peroneus brevis tendon. Using 2-0 Ethibond the tendon was whipstitched before the needle was passed through the cuboid to anchor the peroneus brevis tendon attachment to the cuboid. All incisions were irrigated with copious months sterile saline before attention was directed to closure. Skin was closed with 2-0 Prolene in retention suture fashion in simple interrupted fashion. The patient tolerated the procedure and anesthesia well and without complication. The patient was transported from the operating room to the recovery room with vital signs stable and vascular status intact to all digits of the left foot. The patient was given both written and verbal instructions to remain nonweightbearing to the operative extremity, to keep dressings/splint clean, dry and intact and to take pain medication as directed. The patient will follow-up in the outpatient setting at their scheduled appointment. The patient was discharged with my personal number and was instructed to call if any questions or issues should arise. They were discharged home once anesthesia criteria was met.
--- NOTE | 2025-01-14 12:37 | ANE.PACU2 ---
Inpatient post-anesthesia follow up: Airway intact: Yes Vital signs: Temperature 98.2 F Pulse Rate 85 Respiratory Rate 8 Blood Pressure 85/59 Pulse Oximetry 97 Oxygen Delivery Me thod Room Air Oxygen Flow Rate 8 Fraction of Inspir ed Oxygen Hydration adequate: Yes Nausea and vomiting: No Pain level: controlled Mental status: Baseline
== END 2025-01-14 13:30 | disposition home or self-care (01) ==
PROVIDERS: Anesthesiology; PCP Family Medicine; Visit Provider Podiatrist Foot & Ankle Surgery
PROC: (CPT 28140; principal; 2025-01-14 11:15)
PROC: (CPT 27691; 2025-01-14 11:15)
PROC: (CPT 27691; 2025-01-14 11:15)
PROC: (CPT 27691; 2025-01-14 11:15)
DX: E11.69 Type 2 diabetes mellitus with other specified complication (principal); M86.172 Other acute osteomyelitis, left ankle and foot; E11.621 Type 2 diabetes mellitus with foot ulcer; E11.42 Type 2 diabetes mellitus with diabetic polyneuropathy; E78.5 Hyperlipidemia, unspecified; I10 Essential (primary) hypertension; E11.40 Type 2 diabetes mellitus with diabetic neuropathy, unspecified; E11.43 Type 2 diabetes mellitus with diabetic autonomic (poly)neuropathy; E11.319 Type 2 diabetes mellitus with unspecified diabetic retinopathy without macular edema; K31.84 Gastroparesis; Z79.4 Long term (current) use of insulin; Z79.899 Other long term (current) drug therapy; Z79.82 Long term (current) use of aspirin; Z88.8 Allergy status to other drugs, medicaments and biological substances
CPT/HCPCS: 27691; 28140; 28122; 28124; 36416; 73620; 76000; 81025; 82962; 88305; 88311; J0690; J1100; J2250; J2371; J2405; J2704; J2795; J3010; J7030; J9999

== ENCOUNTER 2025-01-18 12:34 | Outpatient (CLI) | payer OTHER, SELFPAY ==
[2025-01-18 13:19] LABS: Basophils % 0.3 %; Eosinophils # 0.1 10^3/uL (0.0-0.8); Eosinophils % 1.2 %; Hematocrit 27.4 % (36-47); Lymphocytes # 1.3 10^3/uL (0.8-4.8); Lymphocytes % 14.4 %; Mean Corpuscular HGB Conc 30.7 g/dL (30-55); Mean Corpuscular Hemoglobin 22.8 pg (27-33); Mean Corpuscular Volume 74.3 fl (85-98); Mean Platelet Volume 11.8 fL (7.4-10.4); Monocytes # 0.6 10^3/uL (0.2-0.9); Monocytes % 6.6 %; Neutrophils # 6.69 10^3/uL (1.8-7.7); Nucleated Red Blood Cells % 0 %; Platelet Count 273 10^3/cmm (157-399); Red Blood Count 3.69 10^6/uL (3.85-5.65); Red Cell Distribution Width 15.2 % (12.1-15.1); White Blood Count 8.68 10^3/uL (3.29-11.43)
[2025-01-18 13:20] LABS: Erythrocyte Sedimentation Rate 31 mm/hr (0-15)
[2025-01-18 13:38] LABS: C Reactive Protein 140.5 mg/L (0.0-4.9)
== END 2025-01-18 12:35 | disposition home or self-care (01) ==
PROVIDERS: PCP Family Medicine; Visit Provider Podiatrist Foot & Ankle Surgery
DX: E11.621 Type 2 diabetes mellitus with foot ulcer (principal); L97.509 Non-pressure chronic ulcer of other part of unspecified foot with unspecified severity
CPT/HCPCS: 36415; 85025; 85651; 86140

== ENCOUNTER → 2025-01-21 15:37 | Outpatient (BNVA) | payer OTHER, SELFPAY | PROVIDERS: PCP Family Medicine; Visit Provider Podiatrist Foot & Ankle Surgery | DX: Z98.890 Other specified postprocedural states (principal); E11.9 Type 2 diabetes mellitus without complications; Z79.4 Long term (current) use of insulin; Z79.84 Long term (current) use of oral hypoglycemic drugs; M86.8X7 Other osteomyelitis, ankle and foot | CPT/HCPCS: 73630 ==

== ENCOUNTER → 2025-01-23 14:25 | Outpatient (BNVA) | payer OTHER, SELFPAY | PROVIDERS: PCP Family Medicine; Visit Provider Podiatrist Foot & Ankle Surgery | DX: Z98.890 Other specified postprocedural states (principal); M86.8X7 Other osteomyelitis, ankle and foot; E11.69 Type 2 diabetes mellitus with other specified complication; Z79.4 Long term (current) use of insulin; Z79.84 Long term (current) use of oral hypoglycemic drugs | CPT/HCPCS: 73630; 87070; 87075; 87205 ==

== ENCOUNTER 2025-03-02 23:14 | Inpatient (IN) | payer OTHER, SELFPAY ==
[2025-03-02 23:17] VITALS: BP 106/74; PULSE 119; RESP 18; TEMP 36.7; O2SAT 99; BMI 30.8
[2025-03-03 00:09] LABS: HCG, Serum Qual Negative (Negative)
[2025-03-03 00:10] LABS: Basophils % 0.4 %; Eosinophils # 0.1 10^3/uL (0.0-0.8); Eosinophils % 0.5 %; Hematocrit 36.8 % (36-47); Lymphocytes # 1.6 10^3/uL (0.8-4.8); Lymphocytes % 17.7 %; Mean Corpuscular HGB Conc 29.9 g/dL (30-55); Mean Corpuscular Hemoglobin 21.6 pg (27-33); Mean Corpuscular Volume 72.2 fl (85-98); Monocytes # 0.4 10^3/uL (0.2-0.9); Monocytes % 4.7 %; Neutrophils # 6.99 10^3/uL (1.8-7.7); Neutrophils % 76.5 %; Nucleated Red Blood Cells % 0 %; Platelet Count 289 10^3/cmm (157-399); Red Cell Distribution Width 17.8 % (12.1-15.1); White Blood Count 9.15 10^3/uL (3.29-11.43)
--- NOTE | 2025-03-03 00:16 | W.ED.PSYCHS ---
HPI - Psych General: Chief Complaint: Psychiatric Symptoms Stated Complaint: SI Time Seen by Provider: 03/02/25 23:40 History of Present Illness: 44-year-old female with a history of anxiety, diabetes, neuropathy with complications, gastroparesis. She presents with a generalized feeling of feeling down . She is not suicidal. She states that she would never harm herself, but does feel like if she was not around, things might be better. She has never been admitted for depression before. She is not on depression medication. She does have a primary care doctor, but has never seen a psychiatrist. No hallucinations. Related Data Home Medications ?Medication ?Instructions ?Recorded ?Confirmed aspirin 81 mg tablet,delayed 81 mg PO DAILY 01/11/24 02/25/25 release ferrous sulfate 137 mg (45 mg 45 mg PO BID 01/11/24 02/25/25 iron) tablet,extended release Previous Rx's ?Medication ?Instructions ?Recorded blood-glucose sensor (FreeStyle #3 ea 07/17/24 Solo 3 Sensor device) blood-glucose,fish tender,cont #1 ea 07/17/24 (FreeStyle Solo 3 [place]) pantoprazole 40 mg tablet,delayed 40 mg PO BID PRN acid reflux #60 08/20/24 release tabs glucagon HCl 1 mg solution for 1 mg IM Q20M PRN hypoglycemia #1 ea 09/25/24 injection (Glucagon (HCl) Emergency Kit) metoclopramide HCl 10 mg tablet 10 mg PO QID PRN nausea #120 tabs 09/25/24 diazepam 5 mg tablet 5 mg PO DAILY PRN anxiety 20 days 11/20/24 #20 tabs levofloxacin 500 mg tablet 500 mg PO DAILY #14 tabs 01/04/25 metformin 500 mg tablet,extended 1,000 mg (2 x 500 mg) PO BID #120 01/09/25 release 24 hr tabs [place] #1 ea 01/14/25 hydrocodone 5 mg-acetaminophen 325 1 tab PO Q6H PRN pain #16 tabs 01/14/25 mg tablet ciprofloxacin HCl 500 mg tablet 500 mg PO BID #14 tabs 01/17/25 clindamycin HCl 300 mg capsule 300 mg PO TID #21 caps 01/17/25 (Cleocin HCl) cyclobenzaprine 10 mg tablet 10 mg PO Q12H #20 tabs 01/23/25 insulin degludec 100 unit/mL (3 30 unit (0.3 mL) SUBCUT BID #18 mL 02/05/25 mL) subcutaneous pen (Tresiba FlexTouch U-100 insulin) gabapentin 300 mg capsule See Rx Instructions .Route 02/19/25 .COMPLEX #30 caps pen needle, diabetic 33 gauge x #100 ea 02/19/25 5/16 (Comfort EZ Pen [place]) insulin lispro 100 unit/mL 14 unit (0.14 mL) SUBCUT TID #45 mL 02/22/25 subcutaneous pen (Humalog KwikPen (U-100) Insulin) amoxicillin 875 mg-potassium 1 tab PO BID #14 tabs 02/25/25 clavulanate 125 mg tablet duloxetine 30 mg capsule,delayed 30 mg PO DAILY #20 caps 03/03/25 release (Cymbalta) Allergies Allergy/AdvReac Type Severity Reaction Status Date / Time lisinopril Allergy ADR-Cough Verified 02/25/25 13:27 [facility] PFSH: Medical History Type 2 diabetes mellitus with foot ulcer History of abnormal mammogram 02/07/2024 patient reported abnormal mammogram, time for 6-month follow-up Chronic GERD Diabetic retinopathy associated with controlled type 2 diabetes mellitus Anxiety and depression Dyslipidemia associated with type 2 diabetes mellitus Migraines DM II (diabetes mellitus, type II), controlled Gastroparesis Degenerative disc disease History of PCOS HTN (hypertension) with goal to be determined Diabetic neuropathy IBS (irritable bowel syndrome) Broken nose Fatty liver Surgical History History of cholecystectomy Family History Father Diabetes Mother Diabetes Fatty liver Social History Smoking and tobacco/nicotine status: former use of tobacco/nicotine Quit status (tobacco/nicotine): has quit using Alcohol intake: former Substance/Drug Use: never Female Reproductive History: Date of last menstrual period: 02/24/25 Physical Exam Const: COMMON NORMALS: no acute distress GENERAL APPEARANCE: cooperative; not ill appearing and not frail appearing HENMT: COMMON NORMALS: normocephalic, atraumatic and Normal external nose present HEAD & SCALP: normocephalic and atraumatic FACE & SINUS: normal facial exam and face symmetric NOSE: Normal external nose present Eye: COMMON NORMALS: Equal, round and reactive pupils present and EOMs intact bilaterally PUPIL: Yes Equal, round and reactive pupils present Neck/C-Spine: GENERAL: Yes trachea midline Chest: CHEST: Yes Symmetrical chest wall rise Resp: COMMON NORMALS: normal respiratory effort, No retractions, No use of accessory muscles and clear to auscultation bilaterally AUSCULTATION: clear to auscultation bilaterally Cardio: COMMON NORMALS: regular rate and regular rhythm RATE: regular rate RHYTHM: regular rhythm Neuro: GABRIELA COMA SCALE: document GCS findings Gabriela coma scale eye opening: Spontaneous Shirley coma scale verbal response: Orientated Shirley coma scale motor response: Obey commands Gabriela coma scale total score: 15 SENSORY EXAM: Yes extremities (intact) Psych: COMMON NORMALS: speech normal SPEECH: Yes normal speech Course Vital Signs: Vital signs: Vital Signs Temperature 98.0 F 03/02/25 23:17 Pulse Rate 119 H 03/02/25 23:17 Respiratory Rate 18 03/02/25 23:17 Blood Pressure 106/74 03/02/25 23:17 Pulse Oximetry 99 03/02/25 23:17 Oxygen Delivery Me thod Room Air 03/02/25 23:17 MDM - Psych Medical Decision Making This patient presents with worsening depression. She feels as if things would be better without her around, but and has no definite suicide plan. She has never been admitted before. She is not currently on medication for depression. Given the severity of her depression, thoughts of helplessness, thoughts that the world would be better if she was , she will be admitted to psychiatry. She is medically stable. Lab Data 03/02/25 23:50 03/02/25 23:50 Laboratory Results WBC 9.15 10^3/uL (3.29-11.43) 03/02/25 23:50 RBC 5.10 10^6/uL (3.85-5.65) 03/02/25 23:50 Hgb 11.00 g/dL (11.27-16.99) L 03/02/25 23:50 Hct 36.8 % (36-47) 03/02/25 23:50 MCV 72.2 fl (85-98) L 03/02/25 23:50 MCH 21.6 pg (27-33) L 03/02/25 23:50 MCHC 29.9 g/dL (30-55) L 03/02/25 23:50 RDW 17.8 % (12.1-15.1) H 03/02/25 23:50 Plt Count 289 10^3/cmm (157-399) 03/02/25 23:50 MPV Not Reportable 03/02/25 23:50 Neut % (Auto) 76.5 % 03/02/25 23:50 Lymph % (Auto) 17.7 % 03/02/25 23:50 [place] % (Auto) 4.7 % 03/02/25 23:50 Eos % (Auto) 0.5 % 03/02/25 23:50 Baso % (Auto) 0.4 % 03/02/25 23:50 Neut # (Auto) 6.99 10^3/uL (1.8-7.7) 03/02/25 23:50 Lymph # (Auto) 1.6 10^3/uL (0.8-4.8) 03/02/25 23:50 [place] # (Auto) 0.4 10^3/uL (0.2-0.9) 03/02/25 23:50 Eos # (Auto) 0.1 10^3/uL (0.0-0.8) 03/02/25 23:50 Baso # (Auto) 0.0 10^3/uL (0.0-0.1) 03/02/25 23:50 Nucleated RBC % (auto) 0 % 03/02/25 23:50 Nucleated RBCs # 0.0 /100WBC 03/02/25 23:50 Sodium 135 mmol/L (136-145) L 03/02/25 23:50 Potassium 4.2 mmol/L (3.5-5.1) 03/02/25 23:50 Chloride 98 mmol/L (98-107) 03/02/25 23:50 Carbon Dioxide 22 mmol/L (22-29) 03/02/25 23:50 Anion Gap 19.2 (5-19) H 03/02/25 23:50 BUN 10 mg/dL (6-20) 03/02/25 23:50 Creatinine 0.9 mg/dL (0.5-0.9) 03/02/25 23:50 GFR Calculation 68.0 mL/min (90-130) L 03/02/25 23:50 Glucose 306 mg/dL (65-115) H 03/02/25 23:50 Calculated Osmolality 291 mOsm/kg (285-295) 03/02/25 23:50 Calcium 9.6 mg/dL (8.5-10.5) 03/02/25 23:50 Total Bilirubin 0.5 mg/dL (0.15-1.2) 03/02/25 23:50 AST 14 U/L (0-32) 03/02/25 23:50 ALT 12 U/L (0-33) 03/02/25 23:50 Alkaline Phosphatase 144 U/L (35-105) H 03/02/25 23:50 Total Protein 8.8 g/dL (6.6-8.7) H 03/02/25 23:50 Albumin 4.3 g/dL (3.5-5.2) 03/02/25 23:50 Globulin 4.5 g/dL (1.3-4.6) 03/02/25 23:50 HCG, Qual Negative (Negative) 03/02/25 23:50 Urine Color Yellow (Yellow) 03/02/25 23:55 Urine Appearance Clear (CLEAR) 03/02/25 23:55 Urine pH 5.5 (5-7) 03/02/25 23:55 Ur Specific [place] 1.023 (1.005-1.030) 03/02/25 23:55 Urine Protein 1+ (Negative) A 03/02/25 23:55 Urine Glucose (UA) Trace (Normal) H 03/02/25 23:55 Urine Ketones 1+ (Negative) H 03/02/25 23:55 Urine Blood 2+ (Negative) A 03/02/25 23:55 Urine Nitrate Negative (Negative) 03/02/25 23:55 Urine Bilirubin Negative (Negative) 03/02/25 23:55 Urine Urobilinogen 1.0 mg/dL (Negative) 03/02/25 23:55 Ur Leukocyte Esterase Negative (Negative) 03/02/25 23:55 Urine RBC 51-100 /hpf (0-2) H 03/02/25 23:55 Urine WBC 0-5 /hpf (0-5) 03/02/25 23:55 Ur Squamous Epith Cells 0-5 /hpf (0-5) 03/02/25 23:55 Amorphous Sediment Not Reportable 03/02/25 23:55 Urine Bacteria None seen /hpf (NONE) 03/02/25 23:55 Hyaline Casts 9.07 /lpf 03/02/25 23:55 Salicylates < 0.3 mg/dL (3-10) L 03/02/25 23:50 Urine Opiates Screen Negative ng/mL (Negative) 03/02/25 23:55 Acetaminophen < 5.0 ug/mL (10-30) L 03/02/25 23:50 Ur Barbiturates Screen Negative ng/mL (Negative) 03/02/25 23:55 Ur Phencyclidine Scrn Negative ng/mL (Negative) 03/02/25 23:55 Ur Amphetamines Screen Negative ng/mL (Negative) 03/02/25 23:55 U Benzodiazepines Scrn Negative ng/mL (Negative) 03/02/25 23:55 Urine Cocaine Screen Negative ng/mL (Negative) 03/02/25 23:55 U Marijuana (THC) Screen Negative ng/mL (Negative) 03/02/25 23:55 Ethyl Alcohol < 10 mg/dL (0-10) 03/02/25 23:50 No radiology studies performed this visit Discharge Plan Discharge Patient Disposition: Admitted As Inpatient Admit Provider: Eric Cortes Clinical Impression: Depression, Suicidal ideation Condition: Stable Coding Level of Care Code ED Automatic Stacker for Ade Moreno
[2025-03-03 00:17] LABS: Alanine Aminotransferase 12 U/L (0-33); Albumin Level 4.3 g/dL (3.5-5.2); Alkaline Phosphatase 144 U/L (35-105); Anion Gap 19.2 (5-19); Aspartate Amino Transferase 14 U/L (0-32); Blood Urea Nitrogen 10 mg/dL (6-20); Calcium 9.6 mg/dL (8.5-10.5); Carbon Dioxide 22 mmol/L (22-29); Chloride 98 mmol/L (98-107); Globulin 4.5 g/dL (1.3-4.6); Glucose 306 mg/dL (65-115); Osmolality Calculated 291 mOsm/kg (285-295); Potassium 4.2 mmol/L (3.5-5.1); Sodium 135 mmol/L (136-145); Total Bilirubin 0.5 mg/dL (0.15-1.2); Total Protein 8.8 g/dL (6.6-8.7)
[2025-03-03 00:21] LABS: Acetaminophen < 5.0 ug/mL (10-30); Alcohol Level < 10 mg/dL (0-10); Salicylate < 0.3 mg/dL (3-10)
[2025-03-03 00:42] LABS: Bilirubin Urine Negative (Negative); Blood Urine 2+ (Negative); Glucose Urine UA Trace (Normal); Ketones Urine 1+ (Negative); Leukocyte Esterase Urine Negative (Negative); Nitrate Urine Negative (Negative); Protein Urine 1+ (Negative); Specific Gravity, Urine 1.023 (1.005-1.030); Urine Appearance Clear (CLEAR); Urine Color Yellow (Yellow); pH Urine 5.5 (5-7)
[2025-03-03 00:45] LABS: Add Urine Microscopic? YES; Bacteria Urine None Seen /hpf; Hyaline Casts Urine 9.07 /lpf; RBC Urine 51-100 /hpf (0-2); Squamous Epithelial Cell Urine 0-5 /hpf (0-5); WBC Urine 0-5 /hpf (0-5)
[2025-03-03 00:49] LABS: Amphetamines Screen Urine Negative (Negative); Barbiturates Screen Urine Negative (Negative); Benzodiazepines Screen Urine Negative (Negative); Cocaine Screen Urine Negative (Negative); Opiate Screen Urine Negative (Negative); PCP Screen Urine Negative (Negative); THC Screen Urine Negative (Negative)
[2025-03-03 01:06] LABS: Add Urine Culture? Yes; UA Slide Review UA Slide Review Perf
[2025-03-03] MEDS: ketorolac 10 mg Tablet PO (01:35)
[2025-03-03 01:45] VITALS: BP 105/77; PULSE 104; RESP 18; TEMP 36.5; O2SAT 98
[2025-03-03] MEDS: trazodone 50 mg Tablet PO (02:20)
[2025-03-03] MEDS: hyDROXYzine 25 mg Capsule 50 MG PO (02:20)
--- NOTE | 2025-03-03 04:18 | PC.ADMIT ---
[email or web address] [facility] Admission Note: 44 year old female patient presents to NPU for a 1 day history of feeling depressed and hopeless. Patient states that currently her and her have been having some problems. She has a remote history of depression from 5 years ago treated with lamictal. She currently denies SI/HI/AVH. She does endorse anxiety and depression. Her father is still living and mother in 2010 from hepatic failure. She denies illicit drug use, is a former smoker and rare social ETOH. She has a PMH of recent left foot surgery to amputate small toe and treat osteomyelitis of bone, GERD, diabetic retinopathy, diabetes mellitus, gastroparesis, IBS. She is currently on ABX post amputation with becka wrap to left foot and wears boot when ambulating. The patient,Madison Alicea,44 y/o, was given written information regarding hospital policies, unit procedures and contact persons. Patient's smoking status: former smoker. Vital Signs - 8 hr 03/02/25 23:17 03/03/25 01:45 03/03/25 01:50 Temperature 98.0 F 97.7 F Pulse Rate 119 H 104 H Respiratory Rate 18 18 Blood Pressure 106/74 105/77 Pulse Oximetry 99 98 Oxygen Delivery Method Room Air Room Air
[2025-03-03 06:00] VITALS: BP 105/77; PULSE 104; RESP 18; TEMP 36.5; O2SAT 98
[2025-03-03 07:11] LABS: Glucose Point of Care 220 mg/dL (70-110)
[2025-03-03 10:57] LABS: Glucose Point of Care 248 mg/dL (70-110)
[2025-03-03 14:00] VITALS: BP 108/74; PULSE 84; RESP 16; TEMP 36.8; O2SAT 100
--- NOTE | 2025-03-03 14:23 | P.NPUHP_ITS ---
Providers/Chief Complaint 2 Admitting Physician: Eric Cortes MD Primary Care Provider: Pako Yu MD Chief Complaint: SI HPI NPU History of Present Illness Madison Alicea is a 44 year old female who presented to the emergency department with passive suicidal ideation with complaints that she did not feel like she wanted to be alive. She denied any plan to harm herself but stated that things may be better if she were . The patient had reported that she has been depressed for 5 years. She reports her depression has been worse over the last year and states that she may be more depressed since her mother had approximately 1 year ago. She endorses difficulties with falling asleep. She reports frequent awakenings at night. She reports having chronic pain issues. She reports some feelings of hopelessness and reduced energy. She reports that she has been crying more frequently and reports that she has been more isolative. She reports having increased stress with her . The patient reports that she had moved here from [place] in October of this year and ordered for her to better care for his mother. She denies any nichole. She denies any psychosis. She reported no symptoms suggestive of generalized anxiety disorder. She had reported that she has some occasional social anxiety but denies any avoidance. She denied any panic attacks or agoraphobia. She has reported that she had been started on Lexapro approximately 4 months ago but states that it has not been helpful with her depression. She reports that her chronic medical problems including her recent toe removal and osteomyelitis has left her bed ridden and has been leaving her frustrated at not being able to ambulate or work. She reports some financial stressors as well. She also reports some decrease in appetite. She reports having some struggles with concentration. She reports that she has been feeling more tired recently. She denies any drug or alcohol use. Psychiatric history: She has no history of inpatient psychiatric hospitalizations. She has no history of outpatient psychotherapy or any outpatient treatment for depression other than the use of Lexapro for depression. Substance abuse history: None Medical history: Type 2 diabetes, gastroesophageal esophageal reflux disease, diabetic neuropathy, gastroparesis, migraine headaches, polycystic ovarian syndrome, hypertension, hypercholesterolemia Surgical history: Left toe removal, osteomyelitis, cholecystectomy, nasal fracture Allergies: lisinopril Medications: Pravastatin, metformin, hydrocodone, cyclobenzaprine, gabapentin, Augmentin, lexapro 10mg daily, Legal history: None Family psychiatric history: Anxiety disorder-sister. Social history: The patient was born in [facility] and raised by her biological parents. She has 2 older sisters. She had reported having a happy childhood and denied any history of sexual physical or emotional abuse. She had obtained her GED after dropping out of high school in the 11th grade. She had reported working a variety of jobs. She is currently unemployed. She recently moved here from [place] 4 months ago with her of 3 years. She has no children. Her mother in March 2024 and her father lives in [facility]. She reports having few social supports here living in [place]. Meds NPU Home Medications ?Medication ?Instructions ?Recorded ?Confirmed ?Last Taken ?Type blood-glucose sensor (FreeStyle #3 ea 07/17/24 5 Unknown Rx Solo 3 Sensor device) blood-glucose,commissioner of relocation services,cont #1 ea 07/17/24 02/25/25 Un known Rx (FreeStyle Solo 3 [place]) metoclopramide HCl 10 mg tablet 10 mg PO QID PRN nause a #120 tabs 09/25/24 03/03/25 03/02/25 Rx metformin 500 mg tablet,extended 1,000 mg (2 x 500 mg) PO BID #120 01/09/25 03/03/25 03/02/25 Rx release 24 hr tabs Crutches #1 ea 01/14/25 02/25/25 Unkn own Rx insulin degludec 100 unit/mL (3 30 unit (0.3 mL) SUBCU T BID #18 mL 02/05/25 03/03/25 03/02/25 Rx mL) subcutaneous pen (Tresiba FlexTouch U-100 insulin) gabapentin 300 mg capsule See Rx Instructions .Route 0 02/19/25 03/03/25 03/02/25 Rx .COMPLEX #30 caps pen needle, diabetic 33 gauge x #100 ea 02/19/2502/25 Unknown Rx 01/18 (Comfort EZ Pen [place]) amoxicillin 875 mg-potassium 1 tab PO BID #14 tabs 03/03/25 03/02/25 Rx clavulanate 125 mg tablet Lamictal 03/03/25 03/02/25 History fluconazole 03/03/25 Unknown History Allergies Allergy/AdvReac Type Severity Reaction Status Date / Time lisinopril Allergy ADR-Cough Verified 02/25/25 13:27 PFSH NPU 2 PFSH: Medical History Type 2 diabetes mellitus with foot ulcer History of abnormal mammogram 02/07/2024 patient reported abnormal mammogram, time for 6-month follow-up Chronic GERD Diabetic retinopathy associated with controlled type 2 diabetes mellitus Anxiety and depression Dyslipidemia associated with type 2 diabetes mellitus Migraines DM II (diabetes mellitus, type II), controlled Gastroparesis Degenerative disc disease History of PCOS HTN (hypertension) with goal to be determined Diabetic neuropathy IBS (irritable bowel syndrome) Broken nose Fatty liver Surgical History History of cholecystectomy Family History Father Diabetes Mother Diabetes Fatty liver Social History Smoking and tobacco/nicotine status: former use of tobacco/nicotine Quit status (tobacco/nicotine): has quit using Alcohol intake: former Substance/Drug Use: never Mental Status Exam 2 MSE Comments: The patient is a casually dressed slightly overweight female who appeared her stated age with fair eye contact lying in bed and not ambulating at the moment. Her gait was not tested. There was no evidence of any abnormal involuntary motor movements, tics, or tremors appreciated. There was evidence of psychomotor retardation. Her speech was normal in regards to rate rhythm and prosody. Her mood was described as depressed. Her affect was restricted in range and mood congruent. She was tearful throughout much of the interview when discussing the of her mother. Her thought process was linear logical and goal-directed. Her thought content showed no evidence of homicidal ideation. She endorsed passive suicidal ideation with a desire to not be alive but denied any plan or intent. Her attention span was fair. Her insight was limited. Her judgment was poor. Her impulse control appeared guarded. There was no evidence of delusional thinking. She did not appear to be responding to internal stimuli. She was alert and oriented to person place and time. Her recent and remote memory were both grossly intact. Vitals/I&O/Wt Last Vital Signs Temp 97.7 F 03/03/25 06:00 Pulse 104 H 03/03/25 06:00 Resp 18 03/03/25 06:00 BP 105/77 03/03/25 06:00 Pulse Ox 98 03/03/25 06:00 O2 Del Method Room Air 03/03/25 01:50 Weight last 48 hrs Weight 94.801 kg Weight 94.801 kg Data NPU 03/02/25 23:50 03/02/25 23:50 A&P Assessment and plan (1) MDD (major depressive disorder), recurrent severe, without psychosis: Plan 44-year-old female who presents with suicidal ideation in the context of worsening depression over the last year since the of her mother with no previous inpatient treatment and limited help for treating depression in the past. #1.? Engage patient in individual milieu and group therapy. #2?? Recommend sober living treatment at the highest level of care to which the patient is willing to commit #3???Restart outpatient medications. #4?? TO-15 minute checks? #5?? D/C Lexapro and begin Cymbalta 30mg daily to target depression/anxiety. PDMP PDMP Reviewed: Not Reviewed Attestations NPU 2 Medical Necessity Statement*: Inpatient hospitalization is medically necessary and deemed to be the clinically appropriate intervention at this time. Medications will be adjusted and initiated as indicated.? The patient will be hospitalized for at least 2 midnights.? The patient?s likely length of stay is 2-3 days. ? Coding Level of Care Code Acute Code for Chg Fwd Diagnoses MDD (major depressive disorder), recurrent severe, without psychosis F33.2
[2025-03-03] MEDS: gabapentin 300 mg Capsule PO ×2 (14:49→20:30)
[2025-03-03] MEDS: duloxetine 30 mg Capsule PO (14:49)
[2025-03-03] MEDS: HYDROcodone-acetaminophen 5-325 mg Tablet 1 TAB PO (15:30)
[2025-03-03] MEDS: amoxicillin-clav 875-125 mg Tablet 1 TAB PO ×2 (15:31→19:55)
[2025-03-03 16:53] LABS: Glucose Point of Care 288 mg/dL (70-110)
[2025-03-03] MEDS: metformin XR 500 MG Tablet 1000 MG PO (18:03)
[2025-03-03 20:00] VITALS: BP 114/72; PULSE 98; RESP 18; TEMP 36.6; O2SAT 97
[2025-03-03 20:08] LABS: Glucose Point of Care 317 mg/dL (70-110)
[2025-03-04 06:00] VITALS: BP 111/71; PULSE 96; RESP 18; TEMP 36.6; O2SAT 98
--- NOTE | 2025-03-04 07:30 | PC.NURSE ---
Pt blood sugar 251
[2025-03-04] MEDS: duloxetine 30 mg Capsule PO (08:22)
[2025-03-04] MEDS: gabapentin 300 mg Capsule PO ×2 (08:22→15:16)
[2025-03-04] MEDS: metformin XR 500 MG Tablet 1000 MG PO (08:23)
[2025-03-04 11:24] LABS: Glucose Point of Care 251 mg/dL (70-110)
[2025-03-04 11:24] LABS: Glucose Point of Care 269 mg/dL (70-110)
--- NOTE | 2025-03-04 12:36 | W.PM.NPUDCS ---
Diagnoses at Discharge Discharge Diagnosis (1) MDD (major depressive disorder), recurrent severe, without psychosis: Status: Acute Reason for Visit Reason for Visit: SI Brief History: History of Present Illness Madison Alicea is a 44 year old female who presented to the emergency department with passive suicidal ideation with complaints that she did not feel like she wanted to be alive. She denied any plan to harm herself but stated that things may be better if she were . The patient had reported that she has been depressed for 5 years. She reports her depression has been worse over the last year and states that she may be more depressed since her mother had approximately 1 year ago. She endorses difficulties with falling asleep. She reports frequent awakenings at night. She reports having chronic pain issues. She reports some feelings of hopelessness and reduced energy. She reports that she has been crying more frequently and reports that she has been more isolative. She reports having increased stress with her . The patient reports that she had moved here from [place] in October of this year and ordered for her to better care for his mother. She denies any nichole. She denies any psychosis. She reported no symptoms suggestive of generalized anxiety disorder. She had reported that she has some occasional social anxiety but denies any avoidance. She denied any panic attacks or agoraphobia. She has reported that she had been started on Lexapro approximately 4 months ago but states that it has not been helpful with her depression. She reports that her chronic medical problems including her recent toe removal and osteomyelitis has left her bed ridden and has been leaving her frustrated at not being able to ambulate or work. She reports some financial stressors as well. She also reports some decrease in appetite. She reports having some struggles with concentration. She reports that she has been feeling more tired recently. She denies any drug or alcohol use. Psychiatric history: She has no history of inpatient psychiatric hospitalizations. She has no history of outpatient psychotherapy or any outpatient treatment for depression other than the use of Lexapro for depression. Substance abuse history: None Medical history: Type 2 diabetes, gastroesophageal esophageal reflux disease, diabetic neuropathy, gastroparesis, migraine headaches, polycystic ovarian syndrome, hypertension, hypercholesterolemia Surgical history: Left toe removal, osteomyelitis, cholecystectomy, nasal fracture Allergies: lisinopril Medications: Pravastatin, metformin, hydrocodone, cyclobenzaprine, gabapentin, Augmentin, lexapro 10mg daily, Legal history: None Family psychiatric history: Anxiety disorder-sister. Social history: The patient was born in [facility] and raised by her biological parents. She has 2 older sisters. She had reported having a happy childhood and denied any history of sexual physical or emotional abuse. She had obtained her GED after dropping out of high school in the 11th grade. She had reported working a variety of jobs. She is currently unemployed. She recently moved here from [place] 4 months ago with her of 3 years. She has no children. Her mother in March 2024 and her father lives [place] [facility]. She reports having few social supports here living in [place]. Hospital Course Hospital Course During the hospitalization, the patient had routine laboratory studies which were within normal limits except for a few outliers.? Additionally, there was a general medical evaluation which was also within normal limits and revealed no new acute processes.? At the time of discharge, lethality was denied and psychosis was resolving. The patient's gabapentin was increased to 300 mg 3 times a day and Cymbalta was initiated at 30 mg daily to target depression and anxiety with a plan to increase to 60 mg after 5 days. Mood and anxiety were well managed.? The patient endorsed a plan to avoid all drugs of abuse and follow up with the aftercare recommendations of the treatment team.? The patient was evaluated and deemed to be absent credible lethality and had achieved the maximum benefit from an inpatient hospitalization, and so was discharged. ? Involuntary Hold Information Hold Status: Date/Time Hold Expires: voluntary Mental Status Exam MSE Comments: The patient is a casually dressed slightly overweight female who appeared her stated age with fair eye contact lying in bed and not ambulating at the moment. Her gait was not tested. There was no evidence of any abnormal involuntary motor movements, tics, or tremors appreciated. There was evidence of mild psychomotor retardation. Her speech was normal in regards to rate rhythm and prosody. Her mood was described as better. Her affect was mildly restricted. Her thought process was linear logical and goal-directed. Her thought content showed no evidence of homicidal ideation. She denied suicidal ideation with no plan or intent. Her attention span was fair. Her insight was improving. Her judgment was fair. Her impulse control appeared fair. There was no evidence of delusional thinking. She did not appear to be responding to internal stimuli. She was alert and oriented to person,place, and time. Her recent and remote memory were both grossly intact. Discharge Data Studies Completed and Pending: Pending at discharge Category Date Time Status Urine Culture Sta t Lab 03/02/25 23:55 Results Laboratory Results WBC 9.15 10^3/uL (3.2 9-11.43) 03/02/25 23:50 RBC 5.10 10^6/uL (3.8 5-5.65) 03/02/25 23:50 Hgb 11.00 g/dL (11.27 -16.99) L 03/02/25 23:50 Hct 36.8 % (36-47) 03/02/25 23:50 MCV 72.2 fl (85-98) L 03/02/25 23:50 MCH 21.6 pg (27-33) L 03/02/25 23:50 MCHC 29.9 g/dL (30-55) L 03/02/25 23:50 RDW 17.8 % (12.1-15.1 ) H 03/02/25 23:50 Plt Count 289 10^3/cmm (157 -399) 03/02/25 23:50 MPV Not Reportable 03/02/25 23:50 Neut % (Auto) 76.5 % 03/02/25 23:50 Lymph % (Auto) 17.7 % 03/02/25 23:50 [place] % (Auto) 4.7 % 03/02/25 23:50 Eos % (Auto) 0.5 % 03/02/25 23:50 Baso % (Auto) 0.4 % 03/02/25 23:50 Neut # (Auto) 6.99 10^3/uL (1.8 -7.7) 03/02/25 23:50 Lymph # (Auto) 1.6 10^3/uL (0.8- 4.8) 03/02/25 23:50 [place] # (Auto) 0.4 10^3/uL (0.2- 0.9) 03/02/25 23:50 Eos # (Auto) 0.1 10^3/uL (0.0- 0.8) 03/02/25 23:50 Baso # (Auto) 0.0 10^3/uL (0.0- 0.1) 03/02/25 23:50 Nucleated RBC % (a uto) 0 % 03/02/25 23:50 Nucleated RBCs # 0.0 /100WBC 03/02/25 23:50 Sodium 135 mmol/L (136-1 45) L 03/02/25 23:50 Potassium 4.2 mmol/L (3.5-5 .1) 03/02/25 23:50 Chloride 98 mmol/L (98-107 ) 03/02/25 23:50 Carbon Dioxide 22 mmol/L (22-29) 03/02/25 23:50 Anion Gap 19.2 (5-19) H 03/02/25 23:50 BUN 10 mg/dL (6-20) 03/02/25 23:50 Creatinine 0.9 mg/dL (0.5-0. 9) 03/02/25 23:50 GFR Calculation 68.0 mL/min (90-1 30) L 03/02/25 23:50 Glucose 306 mg/dL (65-115 ) H 03/02/25 23:50 POC Glucose 269 mg/dL (70-110 ) H 03/04/25 10:49 Calculated Osmolal ity 291 mOsm/kg (285- 295) 03/02/25 23:50 Calcium 9.6 mg/dL (8.5-10 .5) 03/02/25 23:50 Total Bilirubin 0.5 mg/dL (0.15-1 .2) 03/02/25 23:50 AST 14 U/L (0-32) 03/02/25 23:50 ALT 12 U/L (0-33) 03/02/25 23:50 Alkaline Phosphata se 144 U/L (35-105) H 03/02/25 23:50 Total Protein 8.8 g/dL (6.6-8.7 ) H 03/02/25 23:50 Albumin 4.3 g/dL (3.5-5.2 ) 03/02/25 23:50 Globulin 4.5 g/dL (1.3-4.6 ) 03/02/25 23:50 HCG, Qual Negative (Negati ve) 03/02/25 23:50 Urine Color Yellow (Yellow) 03/02/25 23:55 Urine Appearance Clear (CLEAR) 03/02/25 23:55 Urine pH 5.5 (5-7) 03/02/25 23:55 Ur Specific Gravit y 1.023 (1.005-1.0 30) 03/02/25 23:55 Urine Protein 1+ (Negative) A 03/02/25 23:55 Urine Glucose (UA) Trace (Normal) H 03/02/25 23:55 Urine Ketones 1+ (Negative) H 03/02/25 23:55 Urine Blood 2+ (Negative) A 03/02/25 23:55 Urine Nitrate Negative (Negati ve) 03/02/25 23:55 Urine Bilirubin Negative (Negati ve) 03/02/25 23:55 Urine Urobilinogen 1.0 mg/dL (Negati ve) 03/02/25 23:55 Ur Leukocyte Norma ase Negative (Negati ve) 03/02/25 23:55 Urine RBC 51-100 /hpf (0-2) H 03/02/25 23:55 Urine WBC 0-5 /hpf (0-5) 03/02/25 23:55 Ur Squamous Epith Cells 0-5 /hpf (0-5) 03/02/25 23:55 Amorphous Sediment Not Reportable 03/02/25 23:55 Urine Bacteria None seen /hpf (N ONE) 03/02/25 23:55 Hyaline Casts 9.07 /lpf 03/02/25 23:55 Salicylates < 0.3 mg/dL (3-10 ) L 03/02/25 23:50 Urine Opiates Scre en Negative ng/mL (N egative) 03/02/25 23:55 Acetaminophen < 5.0 ug/mL (10-3 0) L 03/02/25 23:50 Ur Barbiturates Sc reen Negative ng/mL (N egative) 03/02/25 23:55 Ur Phencyclidine S crn Negative ng/mL (N egative) 03/02/25 23:55 Ur Amphetamines Sc reen Negative ng/mL (N egative) 03/02/25 23:55 U Benzodiazepines Scrn Negative ng/mL (N egative) 03/02/25 23:55 Urine Cocaine Scre en Negative ng/mL (N egative) 03/02/25 23:55 U Marijuana (THC) Screen Negative ng/mL (N egative) 03/02/25 23:55 Ethyl Alcohol < 10 mg/dL (0-10) 03/02/25 23:50 Vitals: Last Vital Signs Temp 97.8 F 03/04/25 06:00 Pulse 96 03/04/25 06:00 Resp 18 03/04/25 06:00 BP 111/71 03/04/25 06:00 Pulse Ox 98 03/04/25 06:00 O2 Del Method Room Air 03/04/25 06:00 Discharge Plan Discharge Patient Disposition: Home Condition: Stable Prescriptions: New gabapentin 300 mg Capsule 300 mg PO TID 30 Days Qty: 90 1RF duloxetine 30 mg capsule,delayed release(DR/EC) 30 mg PO DIRECTED 30 Days Qty: 60 1RF Rx Instructions: Take one capsule by mouth daily x 5 days then increase to two capsules daily. Continued amoxicillin-pot clavulanate 875-125 mg tablet 1 tab PO BID Qty: 14 0RF metformin 500 mg tablet extended release 24 hr 1,000 mg PO BID Qty: 120 3RF (DME) FreeStyle Solo 3 [place] Misc See Rx Instructions .Route Qty: 1 0RF Rx Instructions: As directed (DME) FreeStyle Solo 3 Sensor Device See Rx Instructions .Route Qty: 3 11RF Rx Instructions: As directed (DME) Crutches See Rx Instructions .Route .MEDSUPPLY Qty: 1 0RF Rx Instructions: As directed (DME) Comfort EZ Pen [place] 33 gauge x 5/16 needle See Rx Instructions .Route Qty: 100 2RF Rx Instructions: As directed metoclopramide HCl 10 mg tablet 10 mg PO QID PRN (Reason: nausea) Qty: 120 0RF Discontinued gabapentin 300 mg capsule See Rx Instructions .ROUTE .COMPLEX Qty: 30 0RF Dose Instruction: Take 1 capsule by mouth once daily Rx Instructions: Take 1 capsule by mouth once daily No Action insulin degludec [Tresiba FlexTouch U-100] 100 unit/mL (3 mL) insulin pen 30 unit SUBCUT BID Qty: 18 4RF Discharge Orders: Discharge Order (Routine); Ordered 03/04/25 Ordered By: Ricardo Guo Referrals: [facility] [Other] - 03/11/25 1:00 pm Referral Note: On Line assessment appointment with Naomi Conn, Clinical Social Work/Therapist. [facility] [Outside] - 4-7 days Pako Yu MD [Primary Care Provider, Family Practice] - 1-3 days Angely Myles MD [Physician, Endocrinology] - 04/10/25 11:30 am Discharge Diet: Usual diet Discharge Activity: Resume usual activity Patient Instructions: Gabapentin (By mouth), Duloxetine (By mouth), Depression (DC), Anxiety (DC), Suicide Prevention (DC), Opioid Safety, Pain Management, Patient Portal & [place] Instructions Discharge Attestations NPU Time Spent in Discharge Care*: less than 30 min Specific Discharge Activities: Specific discharge activities: educating patient, discussing with case worker/social workers/dc planners and documenting/other paperwork Coding Level of Care Code Acute Code for Chg Fwd Diagnoses MDD (major depressive disorder), recurrent severe, without psychosis F33.2
[2025-03-04 12:57] VITALS: BP 111/71; PULSE 96; RESP 18; TEMP 36.6; O2SAT 98
[2025-03-04 13:15] VITALS: BP 116/76; PULSE 118; RESP 18; TEMP 36.8; O2SAT 100
--- NOTE | 2025-03-04 14:32 | PC.NURSE ---
Dressing change to left foot completed. Wet to dry with betadine, wrapped in kerlix and Tank wrap.
== END 2025-03-04 15:20 | disposition home or self-care (01) | DRG 885 ==
LOC: ER 03-03 00:59 → NP 03-03 01:04
PROVIDERS: Admitting Provider Psychiatry & Neurology Psychiatry; Emergency Provider Emergency Medicine; PCP Family Medicine; Visit Provider Psychiatry & Neurology Psychiatry
DX: F33.2 Major depressive disorder, recurrent severe without psychotic features (principal); R45.851 Suicidal ideations; F41.1 Generalized anxiety disorder; E11.40 Type 2 diabetes mellitus with diabetic neuropathy, unspecified; E11.43 Type 2 diabetes mellitus with diabetic autonomic (poly)neuropathy; K31.84 Gastroparesis; E11.319 Type 2 diabetes mellitus with unspecified diabetic retinopathy without macular edema; K21.9 Gastro-esophageal reflux disease without esophagitis; E28.2 Polycystic ovarian syndrome; I10 Essential (primary) hypertension; E78.00 Pure hypercholesterolemia, unspecified; K76.0 Fatty (change of) liver, not elsewhere classified; Z89.422 Acquired absence of other left toe(s); Z79.84 Long term (current) use of oral hypoglycemic drugs; Z79.891 Long term (current) use of opiate analgesic; Z87.891 Personal history of nicotine dependence
CPT/HCPCS: 36415; 36416; 80053; 80306; 80307; 81001; 82962; 84703; 85025; 87086; 97165; 99285; J9999